=== PATIENT | female | born 1970 | race Caucasian/White ===

== ENCOUNTER 2019-07-07 12:55 | Emergency (ER) | payer SELFPAY ==
[2019-07-07 13:05] VITALS: BP 113/65; PULSE 89; TEMP 36.6; O2SAT 97
--- NOTE | 2019-07-07 13:15 | DI.RAD_ITS ---
EXAM: XR FOOT RT COMPLETE CLINICAL HISTORY: pain, injury dorsal foot pain. TECHNIQUE: 2D digital imaging was performed. COMPARISON: No exams were available for comparison FINDINGS: BONES: No acute fracture is present. No bony destructive lesion is seen. JOINTS: No dislocation present. SOFT TISSUE: Normal. IMPRESSION: Unremarkable radiographs of the right foot. DATA REPOSITORY: RADIATION DOSE DELIVERED:
[2019-07-07 14:27] VITALS: BP 122/75; PULSE 78; RESP 18; TEMP 37; O2SAT 98
--- NOTE | 2019-07-09 16:54 | ED.GENADUL_ITS ---
Discharge Plan Disposition Patient Disposition: HOME Condition: Stable Discharge Details Chief Complaint: Orthopedic Clinical Impression: Contusion of foot Primary Care Provider: Long Youssef ED Provider: Maria Del Carmen Jensen Home Meds and New Rx's Prescriptions: No Action acetaminophen [Tylenol] 325 MG tablet 325 mg PO PRN RF: 0 diphenhydramine HCl [Benadryl Allergy] 25 MG tablet 25 mg PO PRN PRNRF: 0 Discharge Instructions Instructions: Foot Contusion (ED) Additional Instructions: Rest. Activities as tolerated. Elevate injury to prevent swelling. Ice to the area of discomfort for 15 min. 3-5 times daily. Motrin every 8 hours with food or Tylenol every 6 hours for soreness if needed over the counter for comfort. Followup with orthopedic doctor as discussed if not improving in one week. Return for any worsening or concerns sooner if needed. Stand Alone Forms: Work Release Referrals: Talha Garcia MD [ [facility] STAFF PHYSICIAN] - Discharge Data Discharge Date/Time-TO BE ENTERED AT DEPARTURE: 07/07/19 16:02 Medical Decision Making Is a pleasant 49-year-old patient presenting to the emergency room after a rack of bread fell onto her right foot 2 days ago at work. Patient reports she is concerned due to persistence of pain and limping gait. Patient also concerned that she may require work note. Patient is complaining of focal dorsal foot pain. Denies any other injuries or trauma resulting from the injury which occurred at work. Patient concerned with the possibility of fracture as she does have persistent pain with ambulation and limping gait. Patient reports mild tingling noted in the foot after being struck however on exam has only dorsal foot pain with palpation and no sign of neurologic emergency. Pulses are intact. Sensation is intact throughout the foot. X-rays ordered. X-rays obtained which are unremarkable for identifiable fracture at this time. Patient offered postoperative shoe which she consents to. Rice encouraged. Rest encouraged, work note provided for few days of rest. Patient reports her understanding and agrees with plan of care. Orthopedic evaluation encouraged if not improving as expected. The patient was stable and requested discharge. Prior to discharge, my usual and customary return precautions were reviewed with the patient - this included follow-up instructions and reasons to return to the Emergency Department if conditions worsens, does not improve as expected, or other new concerns arise. HPI General Date/Time Provider Initiated Documentation: 07/07/19 13:09 . HPI Narrative: Is a very pleasant 49-year-old patient who works at [employer] who reports that a bread rack fell landing on her right foot. Patient reports injury occurred 3 days ago and patient reports persistent pain when ambulating. Patient reports mild swelling present which has since improved. Patient denies associated numbness, tingling or weakness. No open wounds. Patient reports dorsal foot as site of pain and denies any other associated injury. Patient denies any pain proximal to the foot. No other concerns or complaints at this time. Related Data Home Medications Medication Instructions Recorded Confirmed acetaminophen [Tylenol] 325 mg PO PRN NS 08/27/12 07/07/19 diphenhydramine HCl [Benadryl 25 mg PO PRN PRN 08/31/12 07/07/19 Allergy] Allergies Allergy/AdvReac Type Severity Reaction Status Date / Time Penicillins Allergy Intermediate facial Unverified 07/07/19 13:07 swelling tramadol Allergy Intermediate Unverified 07/07/19 13:07 ibuprofen Allergy Mild Unverified 07/07/19 13:07 codeine AdvReac Mild Skin Rash Unverified 07/07/19 13:07 ketorolac tromethamine AdvReac Mild Skin Rash Unverified 07/07/19 13:07 [From Toradol] meperidine AdvReac Mild skin crawls Unverified 07/07/19 13:07 General Stated Complaint: Orthopedic RALPH: 4 Review of Systems All systems reviewed & are unremarkable except as noted in HPI and below Constitutional Constitutional: Denies weakness ENT Ears, Nose, Mouth, and Throat: Denies neck pain Musculoskeletal Musculoskeletal: Reports abnormal gait (Limping), Denies back pain, Denies deformity, Denies joint swelling, Denies limited range of motion, Denies neck pain, Denies numbness and Reports tingling Integumentary/Breasts Skin/Breast: Denies wounds Neurologic Neurologic: Reports abnormal gait (Limping), Denies focal weakness, Denies numbness, Reports tingling, Denies paresthesias and Denies weakness [facility] Surgical History (Updated 02/17/18 @ 14:34 by [employer] [place]) Colonoscopy - [place] 10/03/13[place] [facility] [place]oph[place], Left Repair, ACL (~1990) Tonsillectomy (~1999) Vaginal hysterectomy removed right ovary Social History Smoking/Tobacco Use Status: Current every day Tobacco Type: cigarettes Alcohol Intake: former Drug use: Never Substance use type: does not use Do you feel safe at home: Yes Do you feel safe in your relationship?: Yes Exam Narrative Exam Narrative: CONST: Healthy appearing patient, in no acute distress. Well hydrated. Alert and oriented. MUSCULOSKELETAL: Limping gait. FROM of all extremities. Right leg: Straight leg raise intact, no knee pain with palpation. No toro pain with palpation. No ankle pain with palpation. Achilles tendon intact and nontender. No medial or lateral malleolus tenderness. Patient does have dorsal foot pain with palpation focally over the proximal forefoot. No calcaneal tenderness. No obvious open wounds. No significant swelling. Pulses intact. Tenderness with palpation through the diffuse dorsal foot. Mild tenderness to the digits. No obvious deformities. Dorsiflexion, plantar flexion intact. Sensation intact distally. SKIN: Normal. Dry. No rashes. NEURO: Alert and awake. Speech clear. PSYCH: Normal affect. Cooperative. Course Vital Signs Vital signs: Vital Signs Temperature 36.6 C 07/07/19 13:05 Pulse 89 07/07/19 13:05 Blood Pressure 113/65 07/07/19 13:05 Pulse Oximetry 97 07/07/19 13:05 Temperature 37.0 C 07/07/19 14:27 Temperature Source Skin 07/07/19 14:27 Pulse 78 07/07/19 14:27 Pulse Rhythm Regular 07/07/19 14:27 Pulse Strength Normal 07/07/19 14:27 Respiratory Rate 18 07/07/19 14:27 Respiratory Effort 07/07/19 14:27 Respiratory Depth Normal 07/07/19 14:27 Respiratory Pattern Normal 07/07/19 14:27 Blood Pressure 122/75 07/07/19 14:27 Blood Pressure Mean 90 07/07/19 14:27 Blood Pressure Position Sitting 07/07/19 14:27 Pulse Oximetry 98 07/07/19 14:27 Oxygen Delivery Method Room Air 07/07/19 14:27 Oxygen Flow Rate 0 07/07/19 14:27 Pain Level 6 07/07/19 13:05
== END 2019-07-07 16:02 | disposition home or self-care (01) ==
PROVIDERS: Emergency Provider Physician Assistant; PCP Family Medicine
DX: S97.81XA Crushing injury of right foot, initial encounter (principal); S90.31XA Contusion of right foot, initial encounter; W20.8XXA Other cause of strike by thrown, projected or falling object, initial encounter; Y99.0 Civilian activity done for income or pay
CPT/HCPCS: 99283; 73630

== ENCOUNTER 2020-02-04 12:17 | Emergency (ER) | payer SELFPAY ==
[2020-02-04 12:25] VITALS: BP 107/69; PULSE 80; RESP 16; TEMP 36.6; O2SAT 100
--- NOTE | 2020-02-04 12:30 | DI.CT_ITS ---
EXAM: CT ABDOMEN PELVIS W INDICATION: Left flank/left lower quadrant pain. COMPARISON: CT ABD PELVIS WITH CONTRAST from 07/18/2013 TECHNIQUE: FINDINGS: CT examination of the abdomen and pelvis was performed with a bolus infusion of 100 cc of Omnipaque 3 50. Images obtained through the lung bases are unremarkable. Liver, spleen and pancreas appear normal . Gallbladder and bile ducts are CT normal. Adrenals and kidneys are unremarkable with an incidental small left renal cyst.. Urinary bladder unr emarkable. Abdominal aorta is of normal diameter and no major vascular abnormality is seen. No abdominal wall hernia. No abdominal or pelvic adenopathy. Uterus and ovaries nonvisualized. Appendix is normal. No evidence of diverticulitis or bowel obstruc tion. IMPRESSION: Negative examination of the abdomen and pelvis. RADIATION DOSE DELIVERED: 488.03mGy.cm Total DLP 488.03mGy.cm Total DLP
--- NOTE | 2020-02-04 12:37 | W.ED.GENAD ---
Discharge Plan Disposition Patient Disposition: HOME Condition: Stable Discharge Details Clinical Impression: Edema of small intestine Primary Care Provider: Long Youssef ED Provider: Ja Jauregui Home Meds and New Rx's Prescriptions: New dicyclomine 10 mg capsule 10 mg PO TID PRN (Reason: bowel cramps) Qty: 10 RF: 0 hydrocodone-acetaminophen 5-325 mg tablet 1 tab PO TID PRN (Reason: pain) Qty: 7 RF: 0 Continued acetaminophen [Tylenol] 325 MG tablet 325 mg PO PRN RF: 0 diphenhydramine HCl [Benadryl Allergy] 25 MG tablet 25 mg PO PRN PRNRF: 0 Discharge Instructions Instructions: Sacroiliitis (ED) Additional Instructions: Please observe a bland diet today. Small, frequent sips of fluids to maintain hydration. Please follow-up with physical therapy to evaluate SI joint strain/sacroiliitis. May use the prescribed Vicodin as needed for severe or break her pain. May also continue your regular medications but do not use additional Tylenol while taking the hydrocodone. Return if you develop increasing pain, numbness or weakness of the leg, a fever, bloody stools, or any other concerns. Stand Alone Forms: Physical Therapy Referral Medical Decision Making 49-year-old female presents from home with 3+ weeks of left flank/left SI/left lower quadrant pain. 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 She denies fall or injury. No fever, no change to bowel or bladder habits, no rash. On exam she is afebrile and well-appearing. She is tender overlying the left SI joint, left flank, the left lower quadrant. Differential diagnosis includes SI joint strain, muscular spasm, pyelonephritis or renal colic, diverticulitis or other left lower quadrant pathology. Lidoderm patch placed. Patient referred for laboratory testing and CT images. Patient's urinalysis is equivocal and likely be mildly contaminated. White blood cell count 8, hematocrit 35, platelets 242. Sodium 137, test 3.6, BUN 20, creatinine 0.9 AST 20, ALT 13. CT reveals nondilated fluid-filled small bowel and mild diffuse pericolonic fat stranding, which may present mild enterocolitis. No bowel obstruction. My clinical impression is primarily of left SI joint strain. She certainly does have the above-mentioned small bowel nonspecific findings. Will treat with a bland diet, Bentyl as needed. I will also prescribe her oral analgesia and refer to physical therapy for probable sacroiliitis. She understands treatment plan and is stable for discharge home. She was consented for the use of a small amount of narcotics prior to discharge. Lab Data Lab results reviewed: Yes I reviewed the patient's lab results. Labs: Laboratory Results - last 24 hr 02/04/20 02/04/20 02/04/20 12:40 12:40 12:40 WBC 8.88 RBC 3.77 L Hgb 11.5 Hct 35.2 L MCV 93.4 MCH 30.5 MCHC 32.7 RDW 13.0 Plt Count 242 MPV 10.8 Immature Gran % 0.2 Neutrophils % 64.1 Lymphocytes % 27.6 Monocytes % 5.4 Eosinophils % 2.0 Basophils % 0.7 Nucleated RBC % 0 Absolute Neutrophils 5.69 Absolute Lymphocytes 2.45 Absolute Monocytes 0.48 Absolute Eosinophils 0.18 Absolute Basophils 0.06 Sodium 137 Potassium 3.6 Chloride 102 Carbon Dioxide 28.0 Anion Gap 7.0 BUN 20 H Creatinine 0.96 Estimated GFR/1.73 m2 >= 60.00 Glucose 126 H Calcium 8.9 Total Bilirubin 0.3 AST 20 ALT 13 L Alkaline Phosphatase 73 Total Protein 7.2 Albumin 4.0 Urine Color Yellow Urine Clarity Clear Urine pH 7.0 Ur Specific [place] 1.025 Urine Protein Negative Urine Ketones Negative Urine Blood Small H Urine Nitrite Negative Urine Bilirubin Negative Urine Urobilinogen 0.2 Ur Leukocyte Esterase Negative Urine RBC 3-5 H Urine WBC 0-2 Ur Epithelial Cells Few Urine Crystals Negative Urine Bacteria Rare Urine Casts Negative Urine Mucus Trace Urine Other Few yeast Ur Culture Indicated? No Urine Glucose Negative HPI General Mode of arrival: ambulatory. Date/Time Provider Initiated Documentation: 02/04/20 12:18. Limitations to Documentation: no limitations. Information obtained by: patient. History of Present Illness 49 year old F presents to the emergency department with the chief complaint of 3 to 4 weeks left lower quadrant/left back pain, described as moderate, Quality is described as dull and constant, and is localized to the back, abdomen and left. Patient abdomen. Patient started experiencing this week(s) and it has been intermittent. No relieving factors improve symptom(s), No exacerbating factors reported . Patient notes denies fever/chills and nausea/vomiting. Patient did receive the following treatments prior to arrival, other (Tylenol) Related Data Home Medications Medication Instructions Recorded Confirmed acetaminophen [Tylenol] 325 mg PO PRN NS 08/27/12 07/07/19 diphenhydramine HCl [Benadryl 25 mg PO PRN PRN 08/31/12 07/07/19 Allergy] dicyclomine 10 mg PO TID PRN #10 cap 02/04/20 hydrocodone-acetaminophen 1 tab PO TID PRN #7 tab 02/04/20 Previous Rx's Medication Instructions Recorded dicyclomine 10 mg PO TID PRN #10 cap 02/04/20 hydrocodone-acetaminophen 1 tab PO TID PRN #7 tab 02/04/20 Allergies Allergy/AdvReac Type Severity Reaction Status Date / Time Penicillins Allergy Intermediate facial Unverified 02/04/20 12:29 swelling tramadol Allergy Intermediate Unverified 02/04/20 12:29 ibuprofen Allergy Mild Unverified 02/04/20 12:29 codeine AdvReac Mild Skin Rash Unverified 02/04/20 12:29 ketorolac tromethamine AdvReac Mild Skin Rash Unverified 02/04/20 12:29 [From Toradol] meperidine AdvReac Mild skin crawls Unverified 02/04/20 12:29 General Stated Complaint: FlankPain RALPH: 3 Review of Systems Narrative: Denies fall or injury. No rash. No numbness, tingling, or weakness of the lower extremity. Describes normal urination and defecation. 6 systems reviewed and otherwise negative [facility] Surgical History (Updated 02/17/18 @ 14:34 by [email or web address] [place]) Colonoscopy - MAC 10/03/13; [facility] [place] Oophrectomy, Left Repair, ACL (~1990) Tonsillectomy (~1999) Vaginal hysterectomy removed right ovary Social History Smoking/Tobacco Use Status: Current every day Tobacco Type: cigarettes Alcohol Intake: former Drug use: Daily Substance use type: marijuana Do you feel safe at home: Yes Do you feel safe in your relationship?: Yes Exam Narrative Exam Narrative: GEN: awake, alert, oriented 3. Pleasant, well groomed, interactive. HEAD: Normocephalic, atraumatic ENT: Mucous membranes moist, External ear exam unremarkable EYES: PERRL, EOMI NECK: Full ROM, no JORGE A, no menigismus CHEST/RESP: Nontender, clear to auscultation bilateral, no wheeze/rhonchi/rales CARDIOVASCULAR: RRR, no murmur, rub kailey. 2+ Rad pulse bilateral ABDOMEN: Soft, tender left lower quadrant without rebound or guarding, no mass. +Bowel sounds. Left SI joint and left flank mildly tender. EXT: Full ROM, no edema, no rash Neuro: Grossly normal neurologic exam, conversant, interactive. Psych: Speech fluent, thoughts congruent, affect normal Course Vital Signs Vital signs: Vital Signs Temperature 36.6 C 02/04/20 12:25 Pulse 80 02/04/20 12:25 Respiratory Rate 16 02/04/20 12:25 Blood Pressure 107/69 02/04/20 12:25 Pulse Oximetry 100 02/04/20 12:25 Temperature 36.6 C 02/04/20 12:25 Temperature Source Temporal Artery Scan 02/04/20 12:25 Pulse 80 02/04/20 12:25 Respiratory Rate 16 02/04/20 12:25 Respiratory Effort 02/04/20 12:29 Blood Pressure 107/69 02/04/20 12:25 Pulse Oximetry 100 02/04/20 12:25 Oxygen Delivery Method Room Air 02/04/20 12:25 Oxygen Flow Rate 0 02/04/20 12:25 Pain Level 8 02/04/20 12:25
[2020-02-04] MEDS: Lidocaine 5% Patch 1 PATCH TP (12:42)
[2020-02-04] MEDS: Normal Saline 1,000 ML 1000 ML IV (12:42)
[2020-02-04 12:49] LABS: Abs Immature Grans 0.02 10^3/uL (0.0-0.06); Absolute Basophil Count 0.06 10^3/uL (0.0-0.2); Absolute Eosinophil Count 0.18 10^3/uL (0.0-0.7); Absolute Lymphocyte Count 2.45 10^3/uL (1.2-3.4); Absolute Monocyte Count 0.48 10^3/uL (0.1-0.8); Absolute Neutrophil Count 5.69 10^3/uL (1.2-6.7); Basophils % 0.7; HCT 35.2 % (36.0-46.0); HGB 11.5 g/dL (11.2-15.7); Immature Grans % 0.2; Lymphocytes % 27.6; MCH 30.5 pg (27.0-33.0); MCHC 32.7 % (32.0-36.0); MCV 93.4 fL (80-95); MPV 10.8 fL (8.0-11.0); Monocytes % 5.4; Neutrophils % 64.1; Nucleated RBC 0 %; Platelet Count 242 10^3/uL (130-400); RBC 3.77 10^6/uL (3.93-5.22); RDW-SD 44.7 fL; WBC 8.88 10^3/uL (4.4-10.8)
[2020-02-04 12:50] LABS: Bilirubin Negative (Negative); Blood Small (Negative); Clarity Clear (Clear); Glucose Negative (Negative); Ketones Negative (Negative); Leukocyte Esterase Negative (Negative); Nitrite Negative (Negative); Specific Gravity 1.025 (1.005-1.025); Urobilinogen 0.2 EU/dL (Up TO 0.2)
[2020-02-04 13:06] LABS: Bacteria Rare HPF (Negative); Crystals Negative HPF (Negative); Epithelial Cells Few HPF (Negative); Other Cells Few Yeast (Negative); WBC 0-2 HPF (0-5)
[2020-02-04 13:07] LABS: C & S Indicated? No; Casts Negative LPF (Negative); Mucus Trace (Negative)
[2020-02-04 13:09] LABS: ALT 13 U/L (14-59); AST 20 U/L (15-37); Alkaline Phosphatase 73 U/L (46-116); BUN 20 mg/dL (7-18); Bilirubin, Total 0.3 mg/dL (0.2-1.0); CREATININE 0.96 mg/dL (0.55-1.02); Calcium 8.9 mg/dL (8.5-10.1); Chloride 102 mmol/L (98-107); Glucose 126 mg/dL (74-106); Potassium 3.6 mmol/L (3.5-5.1); Sodium 137 mmol/L (136-145); Total Protein 7.2 g/dL (6.4-8.2)
[2020-02-04] MEDS: Normal Saline - Diluent 50 ML VIAL IV (13:23)
[2020-02-04] MEDS: Omnipaque 350 MG/ML 100 ML BTL IJ (13:24)
--- NOTE | 2020-02-04 13:41 | NUR.NOTE ---
Nursing Note: offered pain medication to pt- she states she cannot find a ride home, and therefore cannot have controlled substance. Pt states I'd rather wait until I get home.
--- NOTE | 2020-02-04 13:58 | DI.VRAD_ITS ---
PROCEDURE INFORMATION: Exam: CT Abdomen And Pelvis With Contrast Exam date and time: 02/04/2020 12:38 PM Clinical indication: Abdominal pain; Localized; Left lower quadrant (llq) TECHNIQUE: Imaging protocol: Computed tomography of the abdomen and pelvis with intravenous contrast. COMPARISON: CT abdomen and pelvis dated 07/18/2013 FINDINGS: Mediastinal space: There is small hiatal hernia. Liver: Left lobe of liver is elongated with a part wraps around spleen and could be a normal variation. Gallbladder and bile ducts: Normal. No calcified stones. No ductal dilation. Pancreas: Normal. No ductal dilation. Spleen: Normal. No splenomegaly. Adrenals: Normal. No mass. Kidneys and ureters: There is a small nonenhancing cyst in left renal upper pole. No hydronephrosis or nephrolithiasis. Stomach and bowel: There is fluid within small bowel. Distal large bowel is nondistended. There is mild diffuse pericolonic fat stranding. Appendix: Appendix is not identified, however no secondary signs of acute inflammation is noted. There is no pericecal fat stranding or abnormal fluid collection. Intraperitoneal space: Unremarkable. No free air. No significant fluid collection. Vasculature: Unremarkable. No abdominal aortic aneurysm. Lymph nodes: Unremarkable. No enlarged lymph nodes. Urinary bladder: Unremarkable as visualized. Reproductive: Unremarkable as visualized. Bones/joints: Unremarkable. No acute fracture. Soft tissues: Unremarkable. IMPRESSION: Non dilated fluid-filled small bowel and mild diffuse pericolonic fat stranding could reflect mild enterocolitis or sequela of diarrhea illness. No bowel obstruction. Dictated and Authenticated by: Samy Fernando MD. Ordering:MILAGROS Peres MD
[2020-02-04 14:23] VITALS: BP 110/72; PULSE 82; RESP 16; TEMP 36.6; O2SAT 100
== END 2020-02-04 14:34 | disposition home or self-care (01) ==
PROVIDERS: Emergency Provider Emergency Medicine; PCP Family Medicine
DX: M46.1 Sacroiliitis, not elsewhere classified (principal); K52.9 Noninfective gastroenteritis and colitis, unspecified
CPT/HCPCS: 36415; 80053; 96360; 99285; 74177; 81003; 81015; 85025; 99284; J3490

== ENCOUNTER 2020-03-18 11:56 | Emergency (ER) | payer SELFPAY ==
[2020-03-18 12:00] VITALS: BP 124/88; PULSE 103; RESP 17; TEMP 36.5; O2SAT 100
--- NOTE | 2020-03-18 12:00 | DI.CT_ITS ---
EXAM: CT ABDOMEN PELVIS W INDICATION: left lower abdominal pain, and SI joint pain. COMPARISON: CT CT ABDOMEN PELVIS W from 02/04/[address] LUMBAR SPINE W from 03/18/[address] LUMBAR SPINE W from 03/18/2020 TECHNIQUE: FINDINGS: CT examination of the abdomen and pelvis was performed with a bolus infusion of 80 cc of Omnipaque 35 0. Images obtained through the lung bases are unremarkable. The liver is unremarkable in appearance. Gallbladder and bile ducts are CT normal. Pancreas appears normal. Spleen is unremarkable in appearance. Adrenals appear normal. The kidneys are unremarkable with no evidence of hydronephrosis, nephrolithiasis, or renal mass.. Ur inary bladder unremarkable. Abdominal aorta is of normal diameter and no major vascular abnormality is seen. No abdominal wall hernia. No abdominal or pelvic adenopathy. Uterus and ovaries not clearly visualized. Appendix is normal. No evidence of diverticulitis or bowel obstruction. There is a question of duodenal wall thickening, there is moderate distention of the descending and t ransverse duodenum, possibility of duodenitis is raised. Also there is a question of mild thickening of the gastric wall, gastritis not excluded. Please correlate clinically. The requisition states that there is a history of SI joint pain. The SI joints appear intact, no foc al bony abnormality seen. IMPRESSION: Questionable findings raising the possibility of gastritis and/or duodenitis. Please correlate clini maria de jesus. Endoscopy may be considered if clinically appropriate. RADIATION DOSE DELIVERED: Total DLP Total DLP
--- NOTE | 2020-03-18 12:13 | ED.GENADUL_ITS ---
Discharge Plan Disposition Patient Disposition: HOME Condition: Good Discharge Details Clinical Impression: Left flank pain, Muscle spasm, Enteritis Primary Care Provider: Long Youssef ED Provider: Abdirashid Olmedo Home Meds and New Rx's Prescriptions: New dicyclomine 10 mg capsule 10 mg PO BID Qty: 20 RF: 0 cyclobenzaprine 10 mg tablet 10 mg PO TID Qty: 14 RF: 0 Discharge Instructions Instructions: Muscle Spasm (ED), Enteritis (ED) Additional Instructions: At this time your CT scan shows evidence of mild irritation of your intestines. This may be from a mild virus. Please take the Bentyl as needed to help with the pain. There is evidence of some mild blood in your urine, this may have been from a recently passed kidney stone which would correlate well with your symptoms. Additionally I do feel that there is a component of muscle spasm which is also causing your pain. Please take the Flexeril as needed for this. Do not operate any heavy machinery, drive any cars or go swimming while taking this medication as it can make you feel somewhat sleepy. It is very important to follow-up closely with your primary care provider for reassessment. Additionally there is also concern that some of your symptoms may be from recurrent endometriosis. Close follow-up with your primary care provider in regards to this is critical. To help with the pain you can take 1000 mg of Tylenol every 6 hours. If you notice any worsening of your symptoms, or any new symptoms such as vomiting, diarrhea, fever, chills, shortness of breath, chest pain, numbness, weakness, or fainting , please return immediately to the emergency department for reevaluation. Please follow up with your primary care provider as soon as possible for reassessment and reevaluation. As always, it was a pleasure participating in your medical care today. Referrals: Long Youssef MD [Primary Care Provider] - Discharge Data Discharge Date/Time-TO BE ENTERED AT DEPARTURE: 03/18/20 15:22 Medical Decision Making 49-year-old female with a past medical history of kidney stones, hysterectomy, left oophorectomy, presents today for evaluation of left flank hip and groin pain. Patient states that for the last few months she has had this pain, it comes and goes, it is usually improved with stretching, and heat. She was seen and evaluated 1 month ago, at that time she had colonic edema, clinical sacroiliitis and was discharged with recommendations for PT OT follow-up. Patient states her symptoms improved, but over the last few days have gotten notably worse. While they are improved with stretching, she also has new pain in her abdomen which is slightly atypical. She denies any urinary complaints. She denies any current melanotic or bright red blood stools. She denies any vomiting or diarrhea or vaginal discharge. She denies any urinary complaints. She does take her normal medical marijuana and states that this notably helps her pain. Tylenol only slightly improved with pain. She denies any recent falls or injuries. She does admit to a mild tingling sensation over the anterior aspect of her thigh. Patient denies any saddle anesthesia, numbness or tingling in the groin, change in sensation when wiping. Patient denies any c hange in sensation during sexual intercourse, bowel or bladder incontinence, leakage, or retention. Patient denies any weakness in the lower extremities, atypical falls or imbalance. No other complaints at this time. Exam demonstrates no midline spinal tenderness, no signs or symptoms concerning for cauda equina syndrome. Mild left lower quadrant abdominal tenderness. Differential is broad but still does include sacroiliitis but also potential diverticulitis. Urinary component is certainly on the differential. We will treat the patient's pain, get a repeat CT imaging as she states the pain is notably worse than before, monitor closely rehydrate give muscle relaxant and reassess. 5 PM Patient is feeling much better after muscle relaxant. Vital signs notably stable. Laboratory work-up is returned, no significant white count, no bandemia. Electrolytes normal, renal function excellent, urinalysis shows moderate blood, however her hemoglobin is stable. This may represent a recently passed kidney stone. No evidence of urine infection otherwise. CT scan is relatively unremarkable, there is some fluid-filled nondilated loops of small bowel in the pelvis with mild stranding which could be due to mild enteritis, there is questionable mild varicosities in the abdomen, normal appendix, and CT of the spine shows no evidence of significant cord compression or osseous abnormality in the lumbar spine. Patient feeling much better, and no evidence of acute life- threatening etiology I do feel she can be discharged. She certainly may have passed a kidney stone which may be a component of her pain, I do feel that there is likely component of muscle strain as her symptoms notably improved with the muscle relaxants. There is also potential for return of her previous endometriosis. At this time I feel she can be discharged I have recommended close follow-up with her PCP for further assessment management. We discussed red flags which return. We will give some Flexeril for home use. I have extensively reviewed the treatment plan and discharge instructions with the patient. I have addressed all patient concerns at this time. The patient was made aware of what symptoms to monitor for that would warrant a return to the emergency department. Discussed the plan with the patient, they demonstrate verbal understanding and agreement with our assessment and plan at this time. IMPRESSION: 1. Fluid-filled nondilated loops of small bowel in the pelvis with subjacent mild stranding could be due to mild enteritis. 2. Mildly dilated veins in the left side of the abdomen in the superior and inferior mesenteric veins are nonspecific but could be due to mildly varicose veins. 3. Normal appendix. Thank you for allowing us to participate in the care of your patient. Dictated and Authenticated by: Samy Fernando DO 03/18/2020 2:06 PM Eastern Time ([place] & [place]) FINDINGS: Vertebrae: There is no acute fracture or subluxation. There is normal alignment. Vertebral body heights are maintained. Facets are normally located. Intervertebral disc spaces are normal. L1-L2: No significant disc protrusion. No severe spinal canal stenosis. No significant neural foraminal narrowing. L2-L3: No significant disc protrusion. No spinal canal stenosis. No neural foraminal narrowing. L3-L4: No significant disc protrusion. No severe spinal canal stenosis. No significant neural foraminal narrowing. L4-L5: There is mild posterior disc bulge. No significant disc protrusion. No severe spinal canal stenosis. No significant neural foraminal narrowing. L5-S1: There is mild posterior disc bulge without central canal or neural foraminal stenosis. There is mild disc bulge without central canal or neural foraminal stenosis. Sacrum/coccyx: There is a spina bifid occulta of the S1. Other bones/joints: Posterior elements are intact. Vasculature: There is prominence of veins in the left side of lower abdomen and pelvis. Soft tissues: Prevertebral and posterior paraspinal soft tissues unremarkable. IMPRESSION: 1. No acute fracture or subluxation. 2. No s measurable central canal or neural foraminal stenosis. 3. Spina bifida occulta of S1. 4. Prominence of veins in the left side of the lower abdominal and pelvis, although nonspecific could reflect varicose veins or pelvic congestion syndrome. Thank you for allowing us to participate in the care of your patient. Dictated and Authenticated by: Samy Fernando DO 03/18/2020 1:54 PM Eastern Time ([place] & [place]) HPI General Date/Time Provider Initiated Documentation: 03/18/20 11:57 . HPI Narrative: 49-year-old female with a past medical history of kidney stones, hysterectomy, left oophorectomy, presents today for evaluation of left flank hip and groin pain. Patient states that for the last few months she has had this pain, it comes and goes, it is usually improved with stretching, and heat. She was seen and evaluated 1 month ago, at that time she had colonic edema, clinical sacroiliitis and was discharged with recommendations for PT OT follow-up. Patient states her symptoms improved, but over the last few days have gotten notably worse. While they are improved with stretching, she also has new pain in her abdomen which is slightly atypical. She denies any urinary complaints. She denies any current melanotic or bright red blood stools. She denies any vomiting or diarrhea or vaginal discharge. She denies any urinary complaints. She does take her normal medical marijuana and states that this notably helps her pain. Tylenol only slightly improved with pain. She denies any recent falls or injuries. She does admit to a mild tingling sensation over the anterior aspect of her thigh. Patient denies any saddle anesthesia, numbness or tingling in the groin, change in sensation when wiping. Patient denies any change in sensation during sexual intercourse, bowel or bladder incontinence, leakage, or retention. Patient denies any weakness in the lower extremities, atypical falls or imbalance. No other complaints at this time. Related Data Home Medications Medication Instructions Recorded Confirmed cyclobenzaprine 10 mg PO TID #14 tab 03/18/20 dicyclomine 10 mg PO BID #20 cap 03/18/20 Previous Rx's Medication Instructions Recorded cyclobenzaprine 10 mg PO TID #14 tab 03/18/20 dicyclomine 10 mg PO BID #20 cap 03/18/20 Allergies Allergy/AdvReac Type Severity Reaction Status Date / Time Penicillins Allergy Intermediate facial Unverified 03/18/20 12:07 swelling tramadol Allergy Intermediate Unverified 03/18/20 12:07 ibuprofen Allergy Mild Unverified 03/18/20 12:07 codeine AdvReac Mild Skin Rash Unverified 03/18/20 12:07 ketorolac tromethamine AdvReac Mild Skin Rash Unverified 03/18/20 12:07 [From Toradol] meperidine AdvReac Mild skin crawls Unverified 03/18/20 12:07 General Stated Complaint: FlankPain RALPH: 3 Review of Systems All systems reviewed & are unremarkable except as noted in HPI and below REPLACED BY [facility] Surgical History Colonoscopy - MAC 10/03/13; [facility] [place] Oophrectomy, Left Repair, ACL (~1990) Tonsillectomy (~1999) Vaginal hysterectomy removed right ovary Social History Smoking/Tobacco Use Status: Current every day Tobacco Type: cigarettes Smoking risk assessment performed?: Yes Alcohol Intake: former Drug use: Daily Substance use type: marijuana Do you feel safe at home: Yes Do you feel safe in your relationship?: Yes Exam Narrative Exam Narrative: 1.Const: Well-nourished, Well-developed, appearing stated age 2.Eyes: PERRL, no conjunctival injection, and symmetrical lids. 3.ENT: Atraumatic external nose and ears. Moist MM. Neck: Symmetric, trachea midline, No thyromegaly. 4.CVS: +S1/S2, No murmurs or gallops. Peripheral pulses 2+ and equal in all extremities. Brisk capillary refill in all extremities. 5.RESP: Unlabored respiratory effort. Clear to auscultation bilaterally. No wheezes rales or rhonchi 6.GI: Mild left lower quadrant tenderness. Abdomen soft. Mild left CVA tenderness. Negative obturator and psoas sign. Negative Rovsing sign. No pelvic tenderness. 7.MSK: Normocephalic/Atraumatic, Extremities w/o deformity or ttp No cyanosis or clubbing, Normal movement of all extremities. No midline tenderness to palpation over the CTLS spine. Normal ROM in flexion, extension, side bend, and rotation. Patient has +5 out of 5 strength in the lower extremities in dorsiflexion and plantarflexion, knee flexion and extension, hip flexion and extension. Normal strength for dorsiflexion and plantar flexion of the great toe bilaterally. There is +2 over 2 dorsalis pedis pulses bilaterally. There is normal sensation to the skin with light touch at the foot, knee, and hip. Normal saddle sensation. Good sensation over the deep sural nerve area bilaterally. Rectal exam deferred. Reflexes are +2 over 4 in the patellar reflex bilaterally. +5 out of 5 strength in the medial, ulnar, radial nerve distribution bilaterally in the hands as well as intact light touch sensation to these dermatomes on the hands 8.Skin: Warm, Dry. No rashes or lesions. 9.Neuro: operating room surgical technologist II-XII grossly intact. Sensation grossly intact, no focal neurologic deficits. Sensation over both lower extremities is intact bilaterally, 2 light touch, pinch with no evidence of deficit. 10.Psych: (AAO) x3. Appropriate mood and affect Course Vital Signs Vital signs: Vital Signs Temperature 36.5 C 03/18/20 12:00 Pulse 103 H 03/18/20 12:00 Respiratory Rate 17 03/18/20 12:00 Blood Pressure 124/88 03/18/20 12:00 Pulse Oximetry 100 03/18/20 12:00 Temperature 36.5 C 03/18/20 12:00 Temperature Source Temporal Artery Scan 03/18/20 12:00 Pulse 103 H 03/18/20 12:00 Respiratory Rate 17 03/18/20 12:00 Respiratory Effort Non-Labored 03/18/20 12:05 Blood Pressure 124/88 03/18/20 12:00 Pulse Oximetry 100 03/18/20 12:00 Oxygen Delivery Method Room Air 03/18/20 12:00 Oxygen Flow Rate 0 03/18/20 12:00
--- NOTE | 2020-03-18 12:15 | DI.CT_ITS ---
EXAM: CT LUMBAR SPINE W CLINICAL HISTORY: leflt flank pain with anterior thigh tingling TECHNIQUE: COMPARISON: CT CT ABDOMEN PELVIS W from 02/04/[address] ABDOMEN PELVIS W from 03/18/2020 FINDINGS: Reconstructions of the lumbosacral spine were obtained from raw data of abdominal and pelvic CT. The intervertebral disc spaces are well maintained. No fracture or dislocation. Intact SI joints. No spondylolysis or spondylolisthesis. IMPRESSION: Negative CT examination of the lumbosacral spine. RADIATION DOSE DELIVERED: Total DLP
[2020-03-18 12:25] LABS: Lactate 0.8 mmol/L (0.6-1.4)
[2020-03-18] MEDS: Lidocaine 5% Patch 1 PATCH TP (12:25)
[2020-03-18 12:26] LABS: Abs Immature Grans 0.03 10^3/uL (0.0-0.06); Absolute Basophil Count 0.06 10^3/uL (0.0-0.2); Absolute Eosinophil Count 0.21 10^3/uL (0.0-0.7); Absolute Lymphocyte Count 3.22 10^3/uL (1.2-3.4); Absolute Monocyte Count 0.54 10^3/uL (0.1-0.8); Basophils % 0.6; Eosinophils % 1.9; HCT 38.4 % (36.0-46.0); HGB 12.8 g/dL (11.2-15.7); Immature Grans % 0.3; Lymphocytes % 29.8; MCH 30.8 pg (27.0-33.0); MCHC 33.3 % (32.0-36.0); MCV 92.5 fL (80-95); MPV 10.8 fL (8.0-11.0); Neutrophils % 62.4; Nucleated RBC 0 %; Platelet Count 224 10^3/uL (130-400); RBC 4.15 10^6/uL (3.93-5.22); RDW 13.1 % (11.7-14.6); RDW-SD 44.5 fL; WBC 10.82 10^3/uL (4.4-10.8)
[2020-03-18] MEDS: Cyclobenzaprine 10 MG TAB PO (12:26)
[2020-03-18] MEDS: Normal Saline 1,000 ML 1000 ML IV (12:26)
[2020-03-18 12:29] LABS: Bilirubin Negative (Negative); Blood Moderate (Negative); Clarity Clear (Clear); Glucose Negative (Negative); Ketones Negative (Negative); Leukocyte Esterase Negative (Negative); Nitrite Negative (Negative); Urobilinogen 0.2 EU/dL (Up TO 0.2)
[2020-03-18 12:31] LABS: Absolute Neutrophil Count 6.75 10^3/uL (1.2-6.7)
[2020-03-18 12:38] LABS: RBC 20-50 HPF (0-2); WBC 0-2 HPF (0-5)
[2020-03-18 12:39] LABS: Bacteria Rare HPF (Negative); C & S Indicated? No; Casts Negative LPF (Negative); Crystals Negative HPF (Negative); Epithelial Cells Few HPF (Negative); Mucus Negative (Negative)
[2020-03-18 12:42] LABS: ALT 14 U/L (14-59); AST 17 U/L (15-37); Albumin 4.8 g/dL (3.4-5.0); Alkaline Phosphatase 64 U/L (46-116); Anion Gap 9.6 mmol/L (3-11); BUN 10 mg/dL (7-18); Bilirubin, Total 0.5 mg/dL (0.2-1.0); CO2 28.4 mmol/L (21.0-32.0); CREATININE 0.87 mg/dL (0.55-1.02); Calcium 9.2 mg/dL (8.5-10.1); Chloride 101 mmol/L (98-107); Glucose 94 mg/dL (74-106); Potassium 4.4 mmol/L (3.5-5.1); Sodium 139 mmol/L (136-145); Total Protein 8.6 g/dL (6.4-8.2)
[2020-03-18] MEDS: Omnipaque 350 MG/ML 100 ML BTL IV (12:47)
[2020-03-18] MEDS: Normal Saline - Diluent 50 ML VIAL IV (12:52)
--- NOTE | 2020-03-18 13:54 | DI.VRAD_ITS ---
PROCEDURE INFORMATION: Exam: CT Lumbar Spine With Contrast Exam date and time: 03/18/2020 12:18 PM Age: 49 years old Clinical indication: Low back pain TECHNIQUE: Imaging protocol: Computed tomography images of the lumbar spine with intravenous contrast. COMPARISON: No relevant prior studies available. FINDINGS: Vertebrae: There is no acute fracture or subluxation. There is normal alignment. Vertebral body heights are maintained. Facets are normally located. Intervertebral disc spaces are normal. L1-L2: No significant disc protrusion. No severe spinal canal stenosis. No significant neural foraminal narrowing. L2-L3: No significant disc protrusion. No spinal canal stenosis. No neural foraminal narrowing. L3-L4: No significant disc protrusion. No severe spinal canal stenosis. No significant neural foraminal narrowing. L4-L5: There is mild posterior disc bulge. No significant disc protrusion. No severe spinal canal stenosis. No significant neural foraminal narrowing. L5-S1: There is mild posterior disc bulge without central canal or neural foraminal stenosis. There is mild disc bulge without central canal or neural foraminal stenosis. Sacrum/coccyx: There is a spina bifid occulta of the S1. Other bones/joints: Posterior elements are intact. Vasculature: There is prominence of veins in the left side of lower abdomen and pelvis. Soft tissues: Prevertebral and posterior paraspinal soft tissues unremarkable. IMPRESSION: 1. No acute fracture or subluxation. 2. No s measurable central canal or neural foraminal stenosis. 3. Spina bifida occulta of S1. 4. Prominence of veins in the left side of the lower abdominal and pelvis, although nonspecific could reflect varicose veins or pelvic congestion syndrome. Dictated and Authenticated by: Saym Fernando MD. Ordering:JAZMIN Mendenhall MD
[2020-03-18 13:58] VITALS: BP 95/62; PULSE 77; RESP 18; O2SAT 100
--- NOTE | 2020-03-18 14:07 | DI.VRAD_ITS ---
PROCEDURE INFORMATION: Exam: CT Abdomen And Pelvis With Contrast Exam date and time: 03/18/2020 12:13 PM Age: 49 years old Clinical indication: Abdominal pain TECHNIQUE: Imaging protocol: Computed tomography of the abdomen and pelvis with intravenous contrast. Contrast material: OMNIPAQUE 350; Contrast volume: 80 ml; Contrast route: INTRAVENOUS (IV); COMPARISON: CT ABDOMEN PELVIS W 02/04/2020 1:30 PM FINDINGS: Liver: Normal. No mass. Gallbladder and bile ducts: Normal. No calcified stones. No ductal dilation. Pancreas: Normal. No ductal dilation. Spleen: Normal. No splenomegaly. Adrenal glands: Normal. No mass. Kidneys and ureters: Normal. No hydronephrosis. Stomach and bowel: There is fluid in the nondistended distal small bowel in the pelvis. There is no significant mucosal thickening. Stomach is grossly unremarkable. Appendix: Appendix is normal (image 63 series 5). Intraperitoneal space: Unremarkable. No free air. No significant fluid collection. Vasculature: There is slight prominence of the superior and inferior mesenteric veins. Lymph nodes: Unremarkable. No enlarged lymph nodes. Urinary bladder: Unremarkable as visualized. Reproductive: No abnormality. Bones/joints: No acute abnormality in the osseous structures. Soft tissues: Unremarkable. IMPRESSION: 1. Fluid-filled nondilated loops of small bowel in the pelvis with subjacent mild stranding could be due to mild enteritis. 2. Mildly dilated veins in the left side of the abdomen in the superior and inferior mesenteric veins are nonspecific but could be due to mildly varicose veins. 3. Normal appendix. Dictated and Authenticated by: Samy Fernando MD. Ordering:JAZMIN Mendenhall MD
--- NOTE | 2020-03-18 14:43 | NUR.NOTE ---
pt resting quietly at this time. awaiting disposition. vs stable
[2020-03-18 15:02] VITALS: BP 105/75; PULSE 66; RESP 17; TEMP 36.5; O2SAT 100
--- NOTE | 2020-03-18 15:13 | NUR.NOTE ---
Nursing Note: Referral for follow up faxed to PCP. Kourtney Hodgson
== END 2020-03-18 15:22 | disposition home or self-care (01) ==
LOC: ER 13:15
PROVIDERS: Emergency Provider Student in an Organized Health Care Education/Training Program; PCP Family Medicine
DX: R10.32 Left lower quadrant pain (principal); M62.830 Muscle spasm of back; K52.9 Noninfective gastroenteritis and colitis, unspecified; R31.9 Hematuria, unspecified; R20.2 Paresthesia of skin; Z87.442 Personal history of urinary calculi
CPT/HCPCS: 36415; 80053; 96361; 96374; 96376; 99285; 72132; 74177; 81003; 81015; 83605; 85025; J3490

== ENCOUNTER 2020-04-02 16:00 | Outpatient (REF) | payer SELFPAY ==
[2020-04-02 16:13] LABS: Bilirubin Negative (Negative); Blood Small (Negative); Clarity Clear (Clear); Glucose Negative (Negative); Ketones Negative (Negative); Leukocyte Esterase Negative (Negative); Nitrite Negative (Negative); Urobilinogen 0.2 EU/dL (Up TO 0.2); pH 7.5 (5-8)
[2020-04-02 16:24] LABS: Bacteria Negative HPF (Negative); C & S Indicated? No; Crystals Negative HPF (Negative); Epithelial Cells Rare HPF (Negative); Mucus Negative (Negative); WBC Negative HPF (0-5)
== END 2020-04-02 16:20 ==
LOC: LBN 16:00
PROVIDERS: PCP Nurse Practitioner Family; Visit Provider Surgery
DX: R10.9 Unspecified abdominal pain (principal); Z87.442 Personal history of urinary calculi
CPT/HCPCS: 81003; 81015

== ENCOUNTER 2020-04-16 03:00 | Outpatient (CLI) | payer MEDICAID, SELFPAY ==
[2020-04-17 17:30] LABS: COVID-19 RT-PCR UVMMC Result Negative (Negative)
== END 2020-04-16 03:20 ==
PROVIDERS: Surgery; PCP Nurse Practitioner Family; Visit Provider Surgery
DX: Z11.59 Encounter for screening for other viral diseases (principal); Z01.818 Encounter for other preprocedural examination
CPT/HCPCS: U0003

== ENCOUNTER 2020-04-19 07:08 | Day surgery (SDC) | payer MEDICAID, SELFPAY ==
[2020-04-19 07:43] VITALS: BP 96/70; PULSE 73; RESP 16; TEMP 36.7; O2SAT 96
[2020-04-19] MEDS: Lactated Ringers 1,000 ML 80 ML IV (08:02)
--- NOTE | 2020-04-19 08:55 | STOM_PTH ---
PATIENT: Christiana Nagel LOC: [facility] U#:[id number] AGE/SX: 49/F ROOM: RE04/19/[address]: Torrie Olson : 1970 BED: DIS: 04/19/2020 SPEC #: [id number] RECD: 04/19/20 12:51 STATUS: REILLY RE #: [id number] KERRY: 04/19/20 08:[address]: Torrie Olson DEPT: Surgical Specimen RECD BY: Trini Dumont ENTERED: 04/19/20 12:52 SP TYPE: STOMACH OTHR DR: Toan Johnson, CLAIM TECHNICIAN Tissues: 1 - BIOPSY BOWEL 2 - STOMACH BIOPSY 3 - STOMACH BIOPSY 4 - ESOPHAGUS BIOPSY 5 - ESOPHAGUS BIOPSY Procedures: GROSS AND MICRO LEVEL 4 Comments: [id number]
--- NOTE | 2020-04-19 09:40 | W.PM.DS.N ---
Date of service: 04/19/20 Time of Service: 09:42 DS: Diagnosis Discharge Diagnosis (1) Colon cancer screening: Status: Acute (2) Smoker unmotivated to quit: Status: Acute (3) Abnormal CT of the abdomen: Status: Acute (4) Adenomatous colon polyp: Status: Acute (5) Hiatal hernia with GERD: Status: Acute (6) Erosive gastritis: Status: Acute Discharge Plan Disposition Patient Disposition: HOME Condition: Good Discharge Details Reason For Visit: EGD and colon Attending Provider: Torrie Olson Primary Care Provider: Toan Johnson Home Meds and New Rx's Prescriptions: New pantoprazole [Protonix] 40 mg tablet,delayed release (DR/EC) 40 mg PO DAILY Qty: 30 RF: 12 Continued hydrocodone-acetaminophen 5-325 mg tablet 1 tab PO Q8H MDD 15mg PRN (Reason: pain) Qty: 30 RF: 0 ibuprofen 200 mg capsule 200 mg PO Q6H PRNRF: 0 dicyclomine 10 mg capsule 10 mg PO BID Qty: 20 RF: 0 cyclobenzaprine 10 mg tablet 10 mg PO TID Qty: 14 RF: 0 Discontinued polyethylene glycol 3350 17 gram/dose powder 238 g PO ONCE Qty: 238 RF: 0 bisacodyl [Dulcolax (bisacodyl)] 5 mg tablet,delayed release (DR/EC) 5 mg PO ONCE Qty: 4 RF: 0 Discharge Instructions Additional Instructions: Findings: gastritis & GERD nl colon Continue with lifestyle modifications: no alcohol, tobacco products, Aspirin or NSAID's (ibuprofen, Motrin, Naprosyn, aleve, etc), soda pop/any carbonated beverages, caffeine (including tea & chocolate), and acidic foods, (tomatoes, citrus, onions, peppermints) spicy foods. Do not lie down for 30 minutes after eating, and do not eat 2 hours prior to bedtime. Avoid wearing tight fitting clothing/ belts. stop smoking avoid NSAID's. Use tylenol for pain. Rx: protonix. take daily on empty stomach Follow up: repeat colon scope in 10 yrs Please call if you develop: fevers >101.5 Nausea or Vomiting Abdominal pain that is not transient DAY SURGERY UNIT POST COLONOSCOPY INSTRUCTIONS 1. Because there will be medication in your system for the next 24 hours, you may feel a little sleepy. Your coordination will be affected. Therefore: a. Do not drive or operate dangerous equipment for 24 hours. b. Do not drink alcohol beverages for 24 hours (not even beer). c. Plan to go home and rest for the day. 2. Generally there are no restrictions on your activity after a day or so has gone by, but you may feel a bit fatigued for a few days. 3 After you arrive home you may have a light meal and return to a normal diet as you can tolerate it without feeling sick to your stomach. 4. After surgery, you may feel pain or discomfort. This should be only transient, but if it persists please contact your doctor. 5. If there are any questions regarding the findings of your procedure, please feel free to contact your doctor. 6. If you are unable to contact your doctor with a problem, contact the hospital at [phone]. 7. Continue all your regular medications unless directed otherwise. I understand the above instructions and have no questions. Signature of Patient or Responsible Adult Escort Date/Time Name of Responsible Adult Escort Signature of Nurse Date/Time Discharge Orders Discharge Orders: Discharge Order (Routine); Ordered 04/19/20 Ordered By: Torrie Olson DS: Summary Status at Discharge Functional status at discharge: independent ambulation Overall status at discharge: patient is back to baseline Mental Status: other Speech and Movement: speech and movement normal Mood: other Affect: normal affect Exam Psych Mental Status: other Speech and Movement: speech and movement normal Mood: other Affect: normal affect DS: Data Vitals/I&O Vitals and I&O: Vital Signs Temperature 36.7 C 04/19/20 07:43 Pulse 73 04/19/20 07:43 Pulse Rhythm Regular 04/19/20 07:43 Respiratory Rate 16 04/19/20 07:43 Respiratory Depth Normal 04/19/20 07:43 Blood Pressure 96/70 L 04/19/20 07:43 Pulse Oximetry 96 04/19/20 07:43 Oxygen Delivery Method Room Air 04/19/20 07:43 Oxygen Flow Rate 0 04/19/20 07:43 Pain Level 5 04/19/20 07:43 Intake & Output 04/18/20 04/18/20 04/19/20 11:59 23:59 11:59 Intake Total 600 / 600 Balance 600 / 600 Weight 47 kg Intake: IV 600 / 600 PFSH Medical History Abnormal CT of the abdomen [place] colon [place] [facility] [place]rosive gastritis Hematuria Hiatal hernia with GERD Hx of renal calculi Multiple renal calculi Smoker unmotivated to quit Surgical History (Updated 04/19/20 @ 08:07 by Najma Morales) Colonoscopy - MAC 10/03/13; [facility] [place] History of esophagogastroduodenoscopy (EGD) Oophrectomy, Left Repair, ACL (~1990) Tonsillectomy (~1999) Vaginal hysterectomy removed right ovary Family History Mother Breast cancer at 70 after recurrence Diabetes Heart disease Brother Thyroid disorder Social History Smoking/Tobacco Use Status: Current every day Tobacco Type: cigarettes Smoking risk assessment performed?: Yes Alcohol Intake: former Drug use: Daily Substance use type: marijuana Details: Last used @ 0100 per pt. -BR Do you feel safe at home: Yes
--- NOTE | 2020-04-19 09:44 | W.PM.ENDDOP ---
Date of service: 04/19/20 Time of Service: 09:44 Endoscopy Report DATE OF PROCEDURE: 04/19/20 PRE-OP DIAGNOSIS: epigastric pain/dysphagia PROCEDURE: egd w/ bx SURGEON: Torrie Olson ANESTHESIA: GETA ESTIMATED BLOOD LOSS: 1 PATHOLOGY: other COMPLICATIONS: None DISPOSITION: same day PROCEDURE DESCRIPTION: After informed consent was obtained the patient was take to the procedure room and placed in a supine position. Monitors were applied and a time out was done. The patients name, date of , procedure type, allergies to medications and metal in their body was reviewed. A bite block was placed and the patient was sedated. Once sedated and comfortable the gastroscope was advanced through the oropharynx which was grossly normal into the esophagus. The proximal and mid-esophagus were nl. In the distal esophagus there was noted: hiatal hernia. There were no esophageal erosions varices diverticula or strictures apparent. She does have a very patulous hiatus. There is no stomach herniated up through the hiatus at the time of doing the procedure. There is no esophagitis. She has diffuse gastritis throughout the body of the stomach and antrum in a striped fashion. Biopsies taken. All specimen is retrieved and no bleeding is noted. The scope was advanced into the stomach and through the pylorus into the 3rd portion of the duodenum. The duodenum was noted to be nl. Biopsies were done. The scope was retracted back into the stomach and biopsies were done to rule out H. pylori. There were no ulcers. The scope was retroflexed. The cardia and fundus were noted to be normal. There medium hiatal hernia noted. The scope was retracted back into the esophagus and biopsies were done of the GE junction to rule out Curtis's. The Z line was regular.
--- NOTE | 2020-04-19 09:49 | COLE_ITS ---
Date of service: 04/19/20 Time of Service: 09:49 Colonoscopy Report Date of procedure: 04/19/20 Pre-op diagnosis general: R abdom pain/constipation Post-op diagnosis procedure note: same Surgeon: Torrie Olson Anesthesia proc note operative: GETA Estimated blood loss (mL): 0 Pathology: none sent Complications: None Disposition: same day Prep: Miralax/Dulcolax Retraction Time: 10mins Procedure Description: After informed consent was obtained the patient was taken to the procedure room and placed in a left decubitous position. Monitors were applied and a time out was done. The patients name, date of , procedure, allergies to medications and metal in their body was reviewed. The patient was then sedated. Once sedated and comfortable a rectal exam was done. External exam was normal. Internal exam revealed a normal sphincter tone and no palpable masses. The scope was then introduced and retrofelexed. NO internal hemorrhoids were identified. The scope was then advanced to the cecum w/mild-difficulty- she is quite thin; the colon is rather tortuous. The TI and appendiceal orifice were identified. The prep was good. The scope was then slowly retracted over 10 minutes back into the rectum. There are no polyps, diverticula, AVMs, or other abnormalities appreciated. The mucosa is pink and healthy. The scope was removed and the patient was woken up and taken back to Same day surgery in stabl e condition. The patient tolerated the procedure well and there were no immediate complications. Follow up: The patient should follow up in 10 years unless they develop changes in bowel habits or other new gastrointestinal complaints.
[2020-04-19 09:50] VITALS: BP 102/72; PULSE 62; RESP 16; TEMP 36.2; O2SAT 98
--- NOTE | 2020-04-19 10:41 | W.PM.DSUDISC ---
Discharge Plan Disposition Patient Disposition: HOME Condition: Good Discharge Details Reason For Visit: EGD and colon Attending Provider: Torrie Olson Primary Care Provider: Toan Johnson Home Meds and New Rx's Prescriptions: New pantoprazole [Protonix] 40 mg tablet,delayed release (DR/EC) 40 mg PO DAILY Qty: 30 RF: 12 sucralfate [Carafate] 1 gram tablet 1 g PO QACHS PRN (Reason: take in am and HS and q6 as needed for heartburn ) Qty: 90 RF: 12 Continued hydrocodone-acetaminophen 5-325 mg tablet 1 tab PO Q8H MDD 15mg PRN (Reason: pain) Qty: 30 RF: 0 ibuprofen 200 mg capsule 200 mg PO Q6H PRNRF: 0 dicyclomine 10 mg capsule 10 mg PO BID Qty: 20 RF: 0 cyclobenzaprine 10 mg tablet 10 mg PO TID Qty: 14 RF: 0 Discontinued polyethylene glycol 3350 17 gram/dose powder 238 g PO ONCE Qty: 238 RF: 0 bisacodyl [Dulcolax (bisacodyl)] 5 mg tablet,delayed release (DR/EC) 5 mg PO ONCE Qty: 4 RF: 0 Discharge Instructions Additional Instructions: Findings: gastritis & GERD nl colon Continue with lifestyle modifications: no alcohol, tobacco products, Aspirin or NSAID's (ibuprofen, Motrin, Naprosyn, aleve, etc), soda pop/any carbonated beverages, caffeine (including tea & chocolate), and acidic foods, (tomatoes, citrus, onions, peppermints) spicy foods. Do not lie down for 30 minutes after eating, and do not eat 2 hours prior to bedtime. Avoid wearing tight fitting clothing/ belts. stop smoking avoid NSAID's. Use tylenol for pain. Rx: protonix. take daily on empty stomach. Take a carafate in am and at bedtime, scheduled. Can also take every 6hrs as needed for gerd s/s. Follow up: repeat colon scope in 10 yrs Please call if you develop: fevers >101.5 Nausea or Vomiting Abdominal pain that is not transient DAY SURGERY UNIT POST COLONOSCOPY INSTRUCTIONS 1. Because there will be medication in your system for the next 24 hours, you may feel a little sleepy. Your coordination will be affected. Therefore: a. Do not drive or operate dangerous equipment for 24 hours. b. Do not drink alcohol beverages for 24 hours (not even beer). c. Plan to go home and rest for the day. 2. Generally there are no restrictions on your activity after a day or so has gone by, but you may feel a bit fatigued for a few days. 3 After you arrive home you may have a light meal and return to a normal diet as you can tolerate it without feeling sick to your stomach. 4. After surgery, you may feel pain or discomfort. This should be only transient, but if it persists please contact your doctor. 5. If there are any questions regarding the findings of your procedure, please feel free to contact your doctor. 6. If you are unable to contact your doctor with a problem, contact the hospital at [phone]. 7. Continue all your regular medications unless directed otherwise. I understand the above instructions and have no questions. Signature of Patient or Responsible Adult Escort Date/Time Name of Responsible Adult Escort Signature of Nurse Date/Time Activity:: No lifting over 20 pounds or strenuous activity x24 hours Diet:: Small light meals x24 hours. Discharge Orders Discharge Orders: Discharge Order (Routine); Ordered 04/19/20 Ordered By: Torrie Olson DS: Diagnosis Discharge Diagnosis (1) Colon cancer screening: Status: Acute (2) Smoker unmotivated to quit: Status: Acute (3) Abnormal CT of the abdomen: Status: Acute (4) Adenomatous colon polyp: Status: Acute (5) Hiatal hernia with GERD: Status: Acute (6) Erosive gastritis: Status: Acute
== END 2020-04-19 10:49 | disposition home or self-care (01) ==
PROVIDERS: PCP Nurse Practitioner Family; Visit Provider Surgery
PROC: (CPT 43239; principal; 2020-04-19 08:30)
DX: R10.13 Epigastric pain; R13.10 Dysphagia, unspecified; K31.89 Other diseases of stomach and duodenum; K44.9 Diaphragmatic hernia without obstruction or gangrene; K59.00 Constipation, unspecified; K29.70 Gastritis, unspecified, without bleeding; Q43.8 Other specified congenital malformations of intestine
CPT/HCPCS: 43239; 45378; 88305; NC

== ENCOUNTER 2020-05-01 01:33 | Outpatient (CLI) | payer MEDICAID, SELFPAY ==
--- NOTE | 2020-05-01 15:00 | DI.MAMMO_ITS ---
EXAM: MG MAMMO SCREENING CLINICAL HISTORY: screening TECHNIQUE: Mammograms were interpreted according to the usual protocol including computer analysis w [employer] CAD system, tomosynthesis and C-view imaging. COMPARISON: FINDINGS: The breasts are heterogeneously dense. No dominant mass or clumped microcalcification is identified in either breast. No prior examinations are available for comparison. IMPRESSION: No specific evidence of malignancy at this time. Routine screening examinations are suggested at yea rly intervals due to the family history of breast carcinoma. BI-RADS Category 1 - Negative Breast Density - Category C - Heterogeneously dense
== END 2020-05-01 01:53 ==
PROVIDERS: PCP Nurse Practitioner Family; Visit Provider Nurse Practitioner Family
DX: Z12.31 Encounter for screening mammogram for malignant neoplasm of breast (principal)
CPT/HCPCS: 77063; 77067

== ENCOUNTER 2021-12-13 19:57 | Emergency (ER) | payer MEDICAID, SELFPAY ==
[2021-12-13 20:00] VITALS: BP 121/68; PULSE 85; RESP 16; TEMP 36.1; O2SAT 100
--- NOTE | 2021-12-13 20:33 | W.ED.GENAD ---
Discharge Plan Disposition Patient Disposition: HOME Condition: Stable Discharge Details Clinical Impression: Otalgia of right ear Primary Care Provider: Toan Johnson ED Provider: Segundo Sethi Home Meds and New Rx's Prescriptions: New amoxicillin 875 mg tablet 875 mg PO BID Qty: 20 0RF Continued ibuprofen 200 mg capsule 200 mg PO Q6H PRN Discharge Instructions Instructions: Earache (ED) Additional Instructions: Amoxicillin as directed. [id number] Tylenol, Motrin, antihistamines and decongestant as directed for symptomatic control. Please watch for new or worsening symptoms and return to the ER for any concerns. Lastly contact your primary care provider on Thursday to discuss your ER visit need for outpatient reevaluation. Discharge Data Discharge Date/Time-TO BE ENTERED AT DEPARTURE: 12/13/21 20:43 Medical Decision Making 51-year-old female who reports flying from [place] to [place] on Thursday and shortly after developed right ear pain, felt as though her ear never popped or equalize. She appears nontoxic but does endorse moderate to significant discomfort. Her TM is erythematous and bulging but there is no obvious perforation or air-fluid level. Difficult to determine whether this could be barotrauma versus otitis media. Discussed options with patient. Will initiate antibiotic therapy, first dose of amoxicillin given now. We will also treat with anti-inflammatory medication, antihistamine and decongestants. Lastly I will provide a take-home pack of Percocet to help her get through the evening and into tomorrow. Standard discharge and return precautions were provided. Patient understands, is agreeable to this plan, and has no additional questions or concerns upon discharge. This documentation was generated using [employer] system, please disregard any oddities of phrase or misspellings. Medical Records Medical records reviewed: Yes I reviewed the patient's medical records. HPI General Mode of arrival: ambulatory. Date/Time Provider Initiated Documentation: 12/13/21 19:58. Limitations to Documentation: no limitations. Information obtained by: patient. History of Present Illness 51 year old F presents to the emergency department with the chief complaint of Right ear pain, described as severe, with intensity rated at 8. Quality is described as aching, and is localized to the head (R ear). Patient reports no radiation. Patient started experiencing this day(s) (3) and it has been constant. No relieving factors improve symptom(s), No exacerbating factors reported . Patient notes no other symptoms.. Patient did receive the following treatments prior to arrival, NSAID Related Data Home Medications Medication Instructions Recorded Confirmed ibuprofen 200 mg capsule 200 mg PO Q6H PRN 04/02/20 12/13/21 amoxicillin 875 mg tablet 875 mg PO BID #20 tabs 12/13/21 Previous Rx's Medication Instructions Recorded amoxicillin 875 mg tablet 875 mg PO BID #20 tabs 12/13/21 Allergies Allergy/AdvReac Type Severity Reaction Status Date / Time Penicillins Allergy Intermediate facial Verified 12/13/21 20:02 swelling tramadol AdvReac Intermediate jessica Verified 12/13/21 20:02 codeine AdvReac Mild Skin Rash Verified 12/13/21 20:02 ketorolac tromethamine AdvReac Mild Skin Rash Verified 12/13/21 20:02 [From Toradol] meperidine AdvReac Mild skin crawls Verified 12/13/21 20:02 General Stated Complaint: EarProblem RALPH: 4 Review of Systems Constitutional Constitutional: Denies fever(s) and Denies headache(s) ENT Ears, Nose, Mouth, and Throat: Denies headache(s), Denies nasal congestion and Denies sore throat Cardiovascular Cardiovascular: Denies chest pain Respiratory Respiratory: Denies cough Integumentary/Breasts Skin/Breast: Denies rash Neurologic Neurologic: Denies headache(s) PFSH All Active Problems Otalgia of right ear (Acute) Left hip pain (Acute) Erosive gastritis (Acute) Hiatal hernia with GERD (Acute) Colon cancer screening (Acute) Diabetes mellitus screening (Acute) Screening cholesterol level (Acute) Hypotension (Acute) Renal calculi (Chronic) Multiple renal calculi (Acute) Hematuria (Acute) Smoker unmotivated to quit (Acute) Abnormal CT of the abdomen (Acute) Adenomatous colon polyp (Acute) 2013 [facility] [place] Hx of renal calculi (Acute) Medical History Esophagitis History of esophageal reflux Surgical History Colonoscopy - [facility] [place]13[place] [facility] [place] of colonoscopy (~04/19/20) Stoiber, Normal History of esophagogastroduodenoscopy (EGD) (~04/19/20) Oophrectomy, Left Repair, ACL (~1990) Tonsillectomy (~1999) Vaginal hysterectomy removed right ovary Family History Mother Breast cancer at 70 after recurrence Diabetes Heart disease Brother Thyroid disorder Social History Smoking/Tobacco Use Status: Current every day Tobacco Type: cigarettes Smoking risk assessment performed?: Yes Alcohol Intake: former Drug use: Daily Substance use type: marijuana Details: Last used @ 0100 per pt. -BR Do you feel safe at home: Yes Do you feel safe in your relationship?: Yes Exam Const General: cooperative, healthy appearing, comfortable and no acute distress Orientation: alert and awake HENNV Head: normal to inspection, normocephalic and atraumatic Ears: hearing grossly normal bilaterally, external ears normal, TM normal on the right, TM normal on the left, EAC's normal, external ear abnormal and TM abnormal bulging and erythematous; not perforated Face and sinus: normal facial exam Mouth: moist mucous membranes Teeth and gingiva: dentition normal Eyes General: appearance normal, both eyes and all related structures Conjunctivae: conjunctivae normal Neck Neck: normal visual inspection, full ROM, no meningeal signs, trachea midline and supple Resp Effort & Inspection: normal respiratory effort and able to speak in complete sentences Skin General skin exam: no rashes or lesions noted Neuro General: patient alert, patient awake, moves all extremities and no focal motor deficits Sensory Exam: no sensory deficits noted Psych Appearance: grossly normal Mental Status: mental status grossly normal Course Vital Signs Vital signs: Vital Signs Temperature 36.1 C L 12/13/21 20:00 Pulse 85 12/13/21 20:00 Respiratory Rate 16 12/13/21 20:00 Blood Pressure 121/68 12/13/21 20:00 Pulse Oximetry 100 12/13/21 20:00 Temperature 36.1 C L 12/13/21 20:00 Pulse 85 12/13/21 20:00 Respiratory Rate 16 12/13/21 20:00 Respiratory Effort Non-Labored 08/12/22 20:03 Blood Pressure 121/68 08/12/22 20:00 Pulse Oximetry 100 12/13/21 20:00 Pain Level 8 12/13/21 20:03
[2021-12-13] MEDS: Amoxicillin 875 MG TAB PO (20:45)
== END 2021-12-13 20:43 | disposition home or self-care (01) ==
PROVIDERS: Emergency Provider Physician Assistant; PCP Nurse Practitioner Family
DX: H92.01 Otalgia, right ear (principal); F17.210 Nicotine dependence, cigarettes, uncomplicated
CPT/HCPCS: 99283; 99284

== ENCOUNTER 2023-05-31 07:50 | Emergency (ER) | payer MEDICAID, SELFPAY ==
[2023-05-31 07:53] VITALS: BP 151/80; PULSE 79; RESP 13; TEMP 36.7; O2SAT 100
[2023-05-31 07:57] VITALS: BP 151/80; PULSE 79; RESP 13; TEMP 36.7; O2SAT 100
--- NOTE | 2023-05-31 08:08 | ED.GENADUL_ITS ---
HPI General Date/Time Provider Initiated Documentation: 05/31/23 07:51 . Limitations to Documentation: no limitations . Information obtained by: patient . HPI Narrative: 53-year-old female without significant past medical history presents for evaluation of right-sided facial pain. She reports for the last 10 days she has been having right-sided throbbing localized to the right cheek. No trauma. Pain slightly relieved with Orajel or Advil. She is a smoker. She reports fever 2 days ago. Reports this morning she had nasal congestion and drainage. Related Data Home Medications Medication Instructions Recorded Confirmed ibuprofen 200 mg capsule 200 mg PO Q6H PRN 04/02/20 05/31/23 amoxicillin 875 mg tablet 875 mg PO BID #20 tabs 12/13/21 05/31/23 chlorhexidine gluconate 0.12 % 15 ml mucous membrane BID #600 mL 05/31/23 mouthwash metronidazole 500 mg tablet 500 mg PO BID 5 days #10 tabs 05/31/23 Previous Rx's Medication Instructions Recorded amoxicillin 875 mg tablet 875 mg PO BID #20 tabs 12/13/21 chlorhexidine gluconate 0.12 % 15 ml mucous membrane BID #600 mL 05/31/23 mouthwash metronidazole 500 mg tablet 500 mg PO BID 5 days #10 tabs 05/31/23 Allergies Allergy/AdvReac Type Severity Reaction Status Date / Time Penicillins Allergy Intermediate facial Verified 05/31/23 08:01 swelling tramadol AdvReac Intermediate jessica Verified 05/31/23 08:01 codeine AdvReac Mild Skin Rash Verified 05/31/23 08:01 ketorolac tromethamine AdvReac Mild Skin Rash Verified 05/31/23 08:01 [From Toradol] meperidine AdvReac Mild skin crawls Verified 05/31/23 08:01 General Stated Complaint: FacialProb RALPH: 4 Exam Narrative Exam Narrative: Review of Systems: All systems reviewed & are unremarkable except as noted in HPI and below Well-developed, no acute distress NACT Bilateral TMs clear, not erythematous or bulging no sinus tenderness to palpation Mild nasal mucosa edema Multiple areas of dental caries, the right upper maxillary teeth are carious with gingival erosion and irritation noted, no obvious abscess PERRL, normal conjunctiva RRR Unlabored respiratory effort Nondistended abdomen Extremities w/o deformity, no cyanosis, no edema No rashes or lesions. no focal neurologic deficits Appropriate mood and affect Course Vital Signs Vital signs: Vital Signs Temperature 36.7 C 05/31/23 07:53 Pulse 79 05/31/23 07:53 Respiratory Rate 13 05/31/23 07:53 Blood Pressure 151/80 H 05/31/23 07:53 Pulse Oximetry 100 05/31/23 07:53 Temperature 36.7 C 05/31/23 07:57 Temperature Source Oral 05/31/23 07:57 Pulse 79 05/31/23 07:57 Respiratory Rate 13 05/31/23 07:57 Blood Pressure 151/80 H 05/31/23 07:57 Blood Pressure Position Sitting 05/31/23 07:57 Pulse Oximetry 100 05/31/23 07:57 Oxygen Delivery Method Room Air 05/31/23 07:57 Oxygen Flow Rate 0 05/31/23 07:57 Pain Level 9 05/31/23 08:02 Medical Decision Making Emergent evaluation of right-sided facial pain. Initial differential includes sinusitis, gingivitis, dental caries, dental abscess. Patient will be tested for viral infections, flu COVID and RSV. Examination is most consistent with dental caries and ulcerative gingivitis. Will treat with chlorhexidine and Flagyl. Patient is waiting for her dental insurance to provide a card so that she can schedule an appointment with dentist. Initial doses of Flagyl provided in the emergency department. Remaining prescription for full 7 days sent to the pharmacy. Provided with chlorhexidine mouth rinse. Return precautions advised. Encouraged to follow-up with dentist as soon as possible. Viral testing negative today. No additional medications needed. Discharged in good condition. Medical Records Medical records reviewed: Yes I reviewed the patient's medical records. Lab Data Lab results reviewed: Yes I reviewed the patient's lab results. Quality:[facility] Health Related Social Needs: No Data to Display PFSH All Active Problems (Updated 05/31/23 @ 08:32 by Derrick Peguero MD) Acute facial pain (Acute) Acute ulcerative gingivitis (Acute) Left hip pain (Acute) Erosive gastritis (Acute) Hiatal hernia with GERD (Acute) Colon cancer screening (Acute) Diabetes mellitus screening (Acute) Screening cholesterol level (Acute) Hypotension (Acute) Renal calculi (Chronic) Multiple renal calculi (Acute) Hematuria (Acute) Smoker unmotivated to quit (Acute) Abnormal CT of the abdomen (Acute) Adenomatous colon polyp (Acute[place] [facility] [place] of [place] calculi (Acute) Medical History History of esophageal reflux Esophagitis Surgical History History of colonoscopy (~04/19/20) Stoiber, Normal History of esophagogastroduodenoscopy (EGD) (~04/19/20) Tonsillectomy (~1999) Repair, ACL (~1990) Oophrectomy, Left Vaginal hysterectomy removed right ovary Colonoscopy - [facility] 10/03/13; [facility] [place] Family History Mother Breast cancer at 70 after recurrence Diabetes Heart disease Brother Thyroid disorder Social History Smoking/Tobacco Use Status: Current every day Tobacco Type: cigarettes Smoking risk assessment performed?: Yes Alcohol Intake: former Drug use: Daily Substance use type: marijuana Details: Last used @ 0100 per pt. -BR Housing: house Do you feel safe at home: Yes Do you feel safe in your relationship?: Yes Discharge Plan Disposition Patient Disposition: Home Condition: Good Discharge Details Clinical Impression: Acute ulcerative gingivitis, Acute facial pain Primary Care Provider: Toan Johnson ED Provider: Derrick Peguero Home Meds and New Rx's Prescriptions: New metronidazole 500 mg tablet 500 mg PO BID 5 Days Qty: 10 0RF chlorhexidine gluconate 0.12 % mouthwash 15 ml mucous membrane BID Qty: 600 0RF Rx Instructions: swish and spit No Action ibuprofen 200 mg capsule 200 mg PO Q6H PRN amoxicillin 875 mg tablet 875 mg PO BID Qty: 20 0RF Discharge Instructions Instructions: Gingivitis (ED) Additional Instructions: You have been given the first 2 days of the Flagyl medication. supervisor quality control the rest of that prescription to take a full 7 days. Do not drink alcohol on this medication, as it can make you feel very sick. Use the mouthwash twice daily. Please follow-up with a dentist as soon as possible. Continue Motrin and Tylenol as needed for pain.
[2023-05-31] MEDS: metroNIDAZOLE 500 MG TAB PO (08:21)
[2023-05-31] MEDS: Acetaminophen 500 MG TAB 1000 MG PO (08:21)
[2023-05-31 08:40] LABS: COVID-19 PCR Negative (Negative); Influenza A PCR Negative (Negative); Influenza B PCR Negative (Negative); RSV PCR Negative (Negative)
[2023-05-31] MEDS: metroNIDAZOLE 500 MG TAB, 3 TABS/BTL PO (08:41)
[2023-05-31 08:42] LABS: Source Nasopharynx
== END 2023-05-31 08:53 | disposition home or self-care (01) ==
PROVIDERS: Emergency Provider Emergency Medicine; PCP Nurse Practitioner Family
DX: K05.00 Acute gingivitis, plaque induced (principal); G50.1 Atypical facial pain
CPT/HCPCS: 87637; 99283

== ENCOUNTER 2023-06-06 21:47 | Emergency (ER) | payer MEDICAID, SELFPAY ==
[2023-06-06 21:50] VITALS: BP 145/87; PULSE 98; RESP 16; TEMP 36.8; O2SAT 99
--- NOTE | 2023-06-06 22:01 | W.ED.GENAD ---
HPI General Mode of arrival: ambulatory. Date/Time Provider Initiated Documentation: 06/06/23 21:49. Limitations to Documentation: no limitations. Information obtained by: patient, RN notes reviewed and old records reviewed. HPI Narrative: 53 year old female presents to the ED with cc of left sided upper dental pain. Seen here 5 days ago and given Chlorahexadine Mouthwash and prescribed antibiotics (Flagyl x 7 days). which patient reports she finished taking as prescribed. She presents crying. No posteror oropharynx swelling, no exudate, no signs of abscess or area of fluctuance or drainage. Anika is a daily smoker. Related Data Home Medications Medication Instructions Recorded Confirmed ibuprofen 200 mg capsule 200 mg PO Q6H PRN 04/02/20 06/06/23 chlorhexidine gluconate 0.12 % 15 ml mucous membrane BID #600 mL 05/31/23 06/06/23 mouthwash Previous Rx's Medication Instructions Recorded chlorhexidine gluconate 0.12 % 15 ml mucous membrane BID #600 mL 05/31/23 mouthwash Allergies Allergy/AdvReac Type Severity Reaction Status Date / Time Penicillins Allergy Intermediate facial Verified 06/06/23 21:57 swelling tramadol AdvReac Intermediate jessica Verified 06/06/23 21:57 codeine AdvReac Mild Skin Rash Verified 06/06/23 21:57 ketorolac tromethamine AdvReac Mild Skin Rash Verified 06/06/23 21:57 [From Toradol] meperidine AdvReac Mild skin crawls Verified 06/06/23 21:57 General Stated Complaint: DentalOral RALPH: 5 Review of Systems All systems reviewed & are unremarkable except as noted in HPI and below ENT Ears, Nose, Mouth, and Throat: Reports dental pain Exam HENMT Teeth and gingiva: poor dentition Teeth image: 1. Absent 2. Dental caries and gingivitis Course Vital Signs Vital signs: Vital Signs Temperature 36.8 C 06/06/23 21:50 Pulse 98 H 06/06/23 21:50 Respiratory Rate 16 06/06/23 21:50 Blood Pressure 145/87 H 06/06/23 21:50 Pulse Oximetry 99 06/06/23 21:50 Temperature 36.8 C 06/06/23 21:50 Pulse 98 H 06/06/23 21:50 Respiratory Rate 16 06/06/23 21:50 Respiratory Effort Normal 06/06/23 21:54 Blood Pressure 145/87 H 06/06/23 21:50 Pulse Oximetry 99 06/06/23 21:50 Pain Level 10 06/06/23 21:54 Procedures Nerve Block Nerve Block 1: Time out performed: No Local Anesthetic: Lidocaine 1% and Bupivicaine 0.5% Amount of anesthesia used (mL): 2 Side: right Intraoral Nerve Block: superior alveolar Procedure Successful: Yes Patient Tolerated Procedure: well Complications: none Medical Decision Making 53 year old female presents to the ED with cc of left sided upper dental pain. Seen here 5 days ago and given Chlorahexadine Mouthwash and prescribed antibiotics (Flagyl x 7 days). which patient reports she finished taking as prescribed. She presents crying. No posteror oropharynx swelling, no exudate, no signs of abscess or area of fluctuance or drainage. Anika is a daily smoker. Offered a dental block which patient accepted. Given Hurricaine gel topically. Superior alveolar dental block performed with 1% Lidocaine and 0.5% Bupivicaine patient tolerated well, anesthesia achieved. Instructed on Home care, she verbalized understanding. This text was generated using [employer] dictation system, please disregard any oddities of phrase or misspellings. Quality:SDOH Health Related Social Needs: No Data to Display PFSH All Active Problems (Updated 06/06/23 @ 22:22 by Karolina Leyva NP) Pain due to dental caries (Acute) Acute facial pain (Acute) Acute ulcerative gingivitis (Acute) Left hip pain (Acute) Erosive gastritis (Acute) Hiatal hernia with GERD (Acute) Colon cancer screening (Acute) Diabetes mellitus screening (Acute) Screening cholesterol level (Acute) Hypotension (Acute) Renal calculi (Chronic) Multiple renal calculi (Acute) Hematuria (Acute) Smoker unmotivated to quit (Acute) Abnormal CT of the abdomen (Acute) Adenomatous colon polyp (Acute) 2013 [facility] [place] Hx of renal calculi (Acute) Medical History History of esophageal reflux Esophagitis Surgical History History of colonoscopy (~04/19/20) Stoiber, Normal History of esophagogastroduodenoscopy (EGD) (~04/19/20) Tonsillectomy (~1999) Repair, ACL (~1990) Oophrectomy, Left Vaginal hysterectomy removed right ovary [place] [facility] [place] Mother Breast cancer at 70 after recurrence Diabetes Heart disease Brother Thyroid disorder Social History Smoking/Tobacco Use Status: Current every day Tobacco Type: cigarettes Smoking risk assessment performed?: Yes Alcohol Intake: former Drug use: Daily Substance use type: marijuana Details: Last used @ 0100 per pt. -BR Housing: house Do you feel safe at home: Yes Do you feel safe in your relationship?: Yes Discharge Plan Disposition Patient Disposition: Home Condition: Stable Discharge Details Chief Complaint: DentalOral Clinical Impression: Pain due to dental caries Primary Care Provider: Toan Johnson ED Provider: Karolina Leyva Home Meds and New Rx's Prescriptions: No Action ibuprofen 200 mg capsule 200 mg PO Q6H PRN chlorhexidine gluconate 0.12 % mouthwash 15 ml mucous membrane BID Qty: 600 0RF Rx Instructions: swish and spit Discharge Instructions Instructions: Dental Caries (ED) Additional Instructions: Please see a dentist. Practice good oral hygiene, brush teeth twice daily, rinse after eating or drinking. Stay away from alcohol. Consider quitting smoking. Please take Tylenol or Ibuprofen with food every 4-6 hours as needed for pain and swelling. Please use the topical numbing medication up to 3 times daily as needed. The injection will last for approximately 4 to 6 hours. Referrals: Toan Johnson NP [Primary Care Provider] - 5 days
[2023-06-06] MEDS: Benzocaine 20% Gel 30 GM JAR MM (22:06)
[2023-06-06] MEDS: Bupivacaine 0.5% Pres-Free 30 ML VIAL IJ (22:10)
== END 2023-06-06 22:25 | disposition home or self-care (01) ==
PROVIDERS: Emergency Provider Registered Nurse Emergency; PCP Nurse Practitioner Family
DX: K08.89 Other specified disorders of teeth and supporting structures (principal)
CPT/HCPCS: 64400; J0665

== ENCOUNTER 2024-01-18 12:22 | Emergency (ER) | payer MEDICAID, SELFPAY ==
[2024-01-18] VITALS (20 sets, daily range): BP systolic 106–177; BP diastolic 65–95; PULSE 65–97; RESP 11–32; TEMP 36.9; O2SAT 96–100
--- NOTE | 2024-01-18 12:15 | RT.EKG_ITS ---
APPROVED REPORT Exam: Resting ECG Reason for Exam: Palpatations Patient Location: E HR:81 bpm ECG Measurements Heart Rate 81 AXIS VT 173 P 85 QRSd 95 QRS 93 QT 360 T 71 QTc 417 Conclusion Sinus rhythm...normal P axis, V-rate 60- 99 Probable left atrial enlargement...P >50mS, <-0.10mV V1 Anteroseptal infarct, age indeterminate...Q >35mS, T neg, V1-V2 Narrow complex normal sinus rhythm at a rate of 81. Normal axis. Intervals within normal limits. N o ST segment abnormalities. T wave inversion in aVL. No acute injury pattern. No prior for compari son.
--- NOTE | 2024-01-18 12:30 | DI.RAD_ITS ---
Exam(s) XR CHEST 2V PA LATERAL EXAM: XR CHEST 2V PA LATERAL CLINICAL HISTORY: CP radiating to left side of chest. TECHNIQUE: 2D digital imaging was performed. COMPARISON: No exams were available for comparison FINDINGS: 2 views: Heart size is normal. The mediastinum is not widened. Lungs are clear. No infiltrates nor pleural effusions. IMPRESSION: No acute pulmonary findings. DATA REPOSITORY: RADIATION DOSE DELIVERED:
--- OUTSIDE RECORDS SUMMARY | 2024-01-18 12:34 | XMS_ITS | Clinical Summary ---
Author Organization [facility] Address [address] [place] [id number] Care Team Providers Care Content Director Name Role Phone Toan Johnson Primary Care Provider [phone]- [phone] Social History Tobacco Use Types Packs/Day Years Used Date Smoking Tobacco: Never Assessed Sex and Gender Information Value Date Recorded Sex Assigned at Not on file Gender Identity Not on file Sexual Orientation Not on file Plan of Treatment Health Maintenance Due Date Last Done Comments Hepatitis C Screen 1970 Hepatitis B Vaccine (1 of 3 - 19+ 3-dose series) 05/21 COVID-19 Vaccine (2022- season) 2023 Care Teams Content Director Relationship Specialty Start Date End Date Toan Johnson [address] [place] [phone] PCP - General Family Medicine - Hospital Medicine 04/19/20
--- OUTSIDE RECORDS SUMMARY | 2024-01-18 12:35 | XMS_ITS | Encounter Summary ---
Author Organization [facility] Address [address] [place] [address] Care Team Providers Care Cylinder Press Operator Helper Name Role Phone Unavailable Primary Care Provider Unavailabl e Encounter Details Date Type Department Care Team (Late st Contact Info) Description 08/03/2000 Results Only [facility] [address] [place] [address] Vladislav Lemon MD [address] [place] [address] Social History Tobacco Use Types Packs/Day Years Used Date Smoking Tobacco: Never Assessed Sex and Gender Information Value Date Recorded Sex Assigned at Not on file Gender Identity Not on file Sexual Orientation Not on file documented as of this encounter Plan of Treatment Not on file documented as of this encounter Procedures Procedure Name Priority Date/Time Associated Diagnosis Comments SURGICAL PATHOLOGY Routine 08/03/2000 0:00 EDT documented in this encounter Results * SURGICAL PATHOLOGY (08/03/2000 0:00 EDT) Pathology Report: SURGICAL PATHOLOGY REPORT Reports generated via electronic interface contain original data; however they are lacking the format of the original report. Caution should be taken when reading/interpreti ng unformatted reports. Name: ? JESSICA EPSTEIN ? Accession #: ? [id number] ? : ? 1970 (Age: 30) ??F ? Collect Date: ? 08/03/2000 ? Location: ? [facility] ? Receive Date: ? 08/05/2000 ? Provider: VLADISLAV LEMON MD Copy to: LESLIE YEAGER MD ? Final Pathologic Diagnosis: A. ?Endometrium, curettage: 1. ?Secretory phase endometrium, circa day . B. ?Peritoneal cavity, cul-de-sac, biopsy: 1. ?Mesothelial lined fibrovascular tissue with focal mild chronic inflammation. 2. ?No endometriosis identified. C. ?Peritoneal cavity, region of left uterosacral ligament, biopsy: 1 ?Mesothelial lined fibrovascular tissue with focal mild chronic inflammation. ? 2. ? No endometriosis identified. Document reviewed and electronically signed by: LESLIE YEAGER MD Report ??Date: 08/06/2000 15:34 By the signature above, the attending physician certifies that he/she has personally conducted a gross and/or microscopic examination of the described specimens and rendered or confirmed the above diagnosis. Specimen(s) Received: A. ?Endometrial curettings B. ?Cul-de-sac bx C. ?L uterosacral peritoneum Clinical History: ? Pelvic pain Gross Description: ? Received in formalin labelled Robe and endometrial curettings are 1.5 x 0.5 x 0.2 cm of duron-red mucinous material. ??The specimen is entirely submitted as (A). ?? Received in formalin labelled Robe and Cul-de-sac bx is a duron-white rubbery 1.0 x 0.6 x 0.4 cm soft tissue. ??The specimen is entirely submitted as (B). ?? Received in formalin labelled Robe and L uterosacral is a duron-leija focally hemorrhagic 2.0 x 1.3 x 0.4 cm soft tissue. ??The specimen is longitudinally sectioned and entirely submitted as (C). ??(Poncho Lobo)/michele End of Report SASK[facility] SANCHEZ 08/03/2000 08/05/2000 8:5 9 EDT Vladislav Lemon MD PATHOLOGY ORDERABLES [facility] [address] [place] [address] documented in this encounter Visit Diagnoses Not on filedocumented in this encounter
--- OUTSIDE RECORDS SUMMARY | 2024-01-18 12:35 | XMS_ITS | Encounter Summary ---
Author Organization [facility] Address [address] [place] [address] Care Team Providers Care Digital Computer Systems Analyst Name Role Phone Unavailable Primary Care Provider Unavailabl e Encounter Details Date Type Department Care Team (Late st Contact Info) Description 07/08/2001 Results Only [facility] - [facility] [address] [place] [address] Vladislav Lemon MD [address] [place] [address] Social History Tobacco Use Types Packs/Day Years Used Date Smoking Tobacco: Never Assessed Sex and Gender Information Value Date Recorded Sex Assigned at Not on file Gender Identity Not on file Sexual Orientation Not on file documented as of this encounter Plan of Treatment Not on file documented as of this encounter Procedures Procedure Name Priority Date/Time Associated Diagnosis Comments CYTOPATHOLOGY Routine 07/08/2001 0:00 EST documented in this encounter Results * CYTOPATHOLOGY (07/08/2001 0:00 EST) Pathology Report: CYTOPATHOLOGY REPORT Reports generated via electronic interface contain original data; however they are lacking the format of the original report. Caution should be taken when reading/interpreti ng unformatted reports. Name: ? JESSICA EPSTEIN ? Accession #: ? [id number] : ? 1970 (Age: 31) ??F ?Collect Date: ? 07/08/2001 Location: ? [facility] ? Receive Date: ? 07/12/2001 Provider: ?VLADISLAV LEMON MD Copy to: ? Specimen/Source: ?ThinPrep Pap Test, Cervix/Endocervix Last Menstrual Period: ? 06/24/01 Previous Gynecologic Pathology: ? Benign cellular changes: normal paps since ? SPECIMEN ADEQUACY ? Satisfactory for Evaluation - transformation zone component present GENERAL CATEGORIZATION ? Negative for Intraepithelial Lesion or Malignancy ? Document reviewed and electronically signed by: ? AMADOU Hernandez(ASCP) ? Report Date: ??07/15/2001 13:22 End of Report SASKIA SANCHEZ 07/08/2001 07/12/2001 Vladislav Lemon MD PATHOLOGY ORDERABLES [facility] [address] [place] [address] documented in this encounter Visit Diagnoses Not on filedocumented in this encounter
--- OUTSIDE RECORDS SUMMARY | 2024-01-18 12:35 | XMS_ITS | Referral Summary ---
Author Organization [facility] Address [address] [place] [address] Care Team Providers Care Crane Hooker Name Role Phone Toan Johnson Primary Care Provider [phone]- [phone] Social History Tobacco Use Types Packs/Day Years Used Date Smoking Tobacco: Never Assessed Sex and Gender Information Value Date Recorded Sex Assigned at Not on file Gender Identity Not on file Sexual Orientation Not on file Plan of Treatment Not on file Care Teams Crane Hooker Relationship Specialty Start Date End Date Toan Johnson [address] [place] [address] [address] [place] [phone] PCP - General Family Medicine - Hospital Medicine 04/19/20
--- OUTSIDE RECORDS SUMMARY | 2024-01-18 12:35 | XMS_ITS | Encounter Summary ---
Author Organization [facility] Address [facility] [place] [address] Care Team Providers Care Quality Inspector Name Role Phone Criss Youssef MD Primary Care Provider [phone] Encounter Details Date Type Department Care Team (Latest Contact Info) Description 10/03/2013 9:49 AM EDT - 10/03/2013 6:37 PM EDT Hospital [place] [address] Monty Bowman MD [facility] [place] [address] Criss Laguerre MD [facility] [address] [place] [address] Discharge Disposition: Home Social History Tobacco Use Types Packs/Day Years Used Date Smoking Tobacco: Never Assessed Sex and Gender Information Value Date Recorded Sex Assigned at Not on file Gender Identity Not on file Sexual Orientation Not on file documented as of this encounter Last Filed Vital Signs Vital Sign Reading Time Taken Comments Blood Pressure 105/54 10/03/2013 11:19 AM EDT Pulse 52 10/03/2013 11:19 AM EDT Temperature 36.6 ??C (97.9 ??F) 10/03/2013 9:57 AM ED T Respiratory Rate 12 10/03/2013 11:19 AM EDT Oxygen Saturation 99% 10/03/2013 11:19 AM EDT Inhaled Oxygen Concentration - - Weight - - Height - - Body Mass Index - - documented in this encounter Discharge Instructions * Discharge Instructions* Omari Whitmore RN - 10/03/2013 11:21 AM EDT Colonoscopy and polyp removal What to expect after the procedure You may feel a little more gassy or bloated than usual, this is normal. You should expect the return of normal bowel function in the next 2 to 3 days. Because some polyps were removed, you may see a little blood with the next few bowel movements, this should be a small amount ( less than a few tablespoons) and will resolve on it's own. ACTIVITY Because of the sedation that you received Your judgement and reaction time are effected ?? Go home and rest for the remainder for the day. You may resume your normal activities tomorrow ?? Change from one position to the next slowly because you may lose your balance unexpectedly. ?? Be careful on stairs, as you may be unsteady. ?? Avoid strenuous activity for 48 to 72 hrs FOR THE NEXT 24 HRS ?? DO NOT DRIVE OR OPERATE MACHINERY ?? DO NOT DRINK ALCOHOLIC BEVERAGES ?? DO NOT SIGN LEGAL DOCUMENTS ?? If you are a smoker: DO NOT SMOKE WHILE YOU ARE ALONE Diet ?? Start by eating small portions of foods that ordinarily will not upset your stomach, avoid gas producing foods for the next few days. ?? Be gentle with what you choose to start with ?? A soft diet may be helpful for the next 3 days as this may help to keep your stools soft. ?? Drink plenty of fluids ( unless your doctor has told you not to). Medicines Avoid medicines that influence the way your blood clots for the next week. These would include anti-inflammatory medicine, such as ibuprofen( Advil, Motrin) and naproxen ( Aleve). If you need something for discomfort, Tylenol (Acetaminophen) is safe if used as directed. Your Doctor will tell you when to restart your prescribed blood thinners The IV site-- slight tenderness, or redness is normal, you can use warm compresses if you get concerned. If the tenderness +/or redness increases or foul drainage and a red streak occurs, please contact your PCP immediately. When should you call for help? Call 911 anytime you think you may need emergency care. For example If you pass out (loss of consciousness) If you pass maroon or bloody stools If you have severe belly pain Call your healthcare provider or seek immediate medical care if: Your stools are black or tar like Your stools have streaks of blood that is more pronounced with each BM You have belly pain, or your belly is swollen and firm You vomit You have a fever You are very dizzy Watch closely for changes in your health, and be sure to contact your doctor if you have any problems. Your Doctor will let you know when you will need your next colonoscopy. The results of your test and your risk for colorectal cancer will help your doctor decide how often you need to be checked. [facility] [phone] 8a-5p Same Day Endo [phone] 7a-8p Otherwise contact [phone] and ask to speak to the devulcanizer tender education program coordinator Follow up care is a luong part of your treatment and safety. Be sure to make and go to all appointments, and call your doctor if you are having problems. Discharge instructions reviewed with patient who expresses understanding UPPER GI ENDOSCOPY WHAT TO EXPECT AFTER THE PROCEDURE After the test you may feel a little more gassy or bloated than usual, this is normal. ACTIVITY Because of the sedation that you received Your judgement and reaction time are affected ?? Go home and rest quietly for the remainder of the day. You may resume your normal activities tomorrow. ?? Change from one position to the next slowly. You may lose your balance unexpectedly Be careful on stairs, as you may be unsteady on your feet. FOR THE NEXT 24 HRS ?? DO NOT DRIVE OR OPERATE ANY MACHINERY ?? DO NOT DRINK ALCOHOLIC BEVERAGES ?? DO NOT SIGN LEGAL DOCUMENTS ?? If you are a smoker: DO NOT SMOKE WHILE YOU ARE ALONE Diet ?? Start by eating small portions of foods that ordinarily will not upset your stomach. Be gentle with what you choose to start with. ?? Drink plenty of fluids ( unless otherwise told not to) Medications You may have a mild sore throat. Ice chips, popsicles, over the counter throat lozenges or spray may help numb your throat. This procedure should not cause a fever. IV SITE-- slight redness or tenderness is normal, you can use warm compresses if you get concerned.If the tenderness +/or redness increases or foul drainage and a red streak occurs, please contact your PCP immediately. WHEN SHOULD YOU CALL FOR HELP? Call 911 anytime you think that you need emergency care. For example, call if: You passed out (lost consciousness). You cough up blood. You vomit blood or what looks like coffee grounds. You pass maroon or very bloody stools. Call your healthcare provider or seek immediate medical attention if: You have trouble swallowing. You have belly pain. Your stools are black or tarlike or have streaks of blood. You are sick to your stomach or cannot keep fluids down. Watch closely for changes in your health, and be sure to contact your doctor IF Your throat still hurts after a day or two You do not get better as expected. Thursday[facility]Thursday Clinic [phone] 8a-5p Same Day Endo [phone] 7a-8p Otherwise contact [phone] and ask to speak to the devulcanizer tender education program coordinator Follow-up care is a luong part of your treatment and safety. Be sure to make and go to all appointments, and call your doctor if you are having problems. Instructions have been reviewed and patient expresses understanding documented in this encounter Medications at Time of Discharge Medication Sig Dispensed Refills Start Date End Date acetaminophen (TYLENOL) 325 mg tablet Take 650 mg by mouth every 4 hours as needed. documented as of this encounter H&P Notes * Criss Laguerre MD - 10/03/2013 10:02 AM EDT Gastroenterology and Hepatology Pre-Procedure History and Physical Exam Procedure: EGD/Colonoscopy +/- dilation Indication: early satiety, intermittent solid food dysphagia, change in bowel habits Patient Active Problem List Diagnosis Code ??? Change in bowel habits 787.99 EXAM: HEENT: Airway examined, oropharynx clear LUNGS: Clear to auscultation HEART: Regular rate and rhythm, normal S1, S2 ABDOMEN: Normal bowel sounds, soft, non tender, non distended, A/P Proceed with the planned endoscopic procedure. Risks and benefits of the procedure explained to the patient. Consent signed. documented in this encounter Miscellaneous Notes * Miscellaneous - Provider, Jose L - 10/03/2013 9:35 PM EDT * Miscellaneous - Provider, Scanning - 10/03/2013 3:14 PM EDT documented in this encounter Plan of Treatment Not on file documented as of this encounter Procedures Procedure Name Priority Date/Time Associated Diagnosis Comments SURGICAL PATHOLOGY REPORT Routine 10/03/2013 11:09 AM EDT SPECIMEN TO PATHOLOGY Routine 10/03/2013 11:09 AM EDT SPECIMEN TO PATHOLOGY Routine 10/03/2013 11:09 AM EDT SPECIMEN TO PATHOLOGY Routine 10/03/2013 11:09 AM EDT SPECIMEN TO PATHOLOGY Routine 10/03/2013 11:09 AM EDT SPECIMEN TO PATHOLOGY Routine 10/03/2013 11:09 AM EDT COLONOSCOPY, DIAGNOSTIC (WRVU 3.26) 10/03/2013 10:15 AM EDT Globus sensation EGD, UPPER GI ENDOSCOPY (WRVU 2.09) 10/03/2013 10:15 AM EDT Globus sensation COLONOSCOPY Routine 10/03/2013 10:09 AM EDT UPPER GI ENDOSCOPY Routine 10/03/2013 10 :08 AM EDT documented in this encounter Results * Surgical Pathology Report (10/03/2013 11:09 AM EDT) Final Diagnosis ? [facility] ? Provider: ?? CRISS LAGUERRE ?Pt. Name: ?? TETE JESSICA Brown ? Acc #: ?Pt. ? Col Date: ?? 10/03/2013 ?/Sex: ?1970,(43 years),Female ? Rec Date: ?? 10/03/2013 ?LOC: ?4T ? SURGICAL PATHOLOGY ? ---Pathologic Diagnosis--- ? A - Distal esophagus, biopsy: ? Esophageal squamous mucosa, negative for diagnostic abnormality. ? B - Mid esophagus, biopsy: ? Esophageal squamous mucosa, negative for diagnostic abnormality. ? C - Cecum, polypectomy: ? Colonic mucosa, negative for diagnostic abnormality. ? Multiple deeper levels examined. ? D - Colon at 34 cm, biopsy: ? Colonic mucosa, negative for diagnostic abnormality. ? Multiple deeper levels examined. ? E - Sigmoid colon, polypectomy: ? Colonic mucosa, negative for diagnostic abnormality. ? Multiple deeper levels examined. ? CR-0, CR-PX ? 10/06/13 ? [facility] ? 10/07/13 Verified by: ? Adan Kelly MD ? Pathologist ? (Electronic Signature) ? The attending pathologist whose signature appears on this report has ? reviewed all diagnostic slides and has edited the gross and/or ? microscopic portion of the report in rendering the final pathologic ? diagnosis. ? ---Gross Description--- ? A - Labeled/Fixativ e: Distal esophagus rule out EOE, formalin. ? Quantity/Size: Four, averaging 0.2 cm. ? Tissue Description: Soft, duron-pink tissue. ? Sections/Proces sing: (T1) ? B - Labeled/Fixativ e: Mid esophagus rule out EOE, formalin. ? Quantity/Size: Three, averaging 0.2 cm. ? Tissue Description: Soft, yellow-duron tissue. ? Sections/Proces sing: (T1) ? C - Labeled/Fixativ e: Cecal polyp, formalin. ? [facility] ? Provider: ?? CRISS LAGUERRE ?Pt. Name: ?? TETE JESSICA Brown ? Acc #: ?Pt. ? Col Date: ?? 10/03/2013 ?/Sex: ?1970,(43 years),Female ? Rec Date: ?? 10/03/2013 ?LOC: ?4T ? SURGICAL PATHOLOGY ? Quantity/Size: Single, 0.4 cm. ? Tissue Description: Soft, yellow-duron tissue. ? Sections/Proces sing: (T1) ? D - Labeled/Fixativ e: Flat lesion,? Fold versus polyp at 34 cm, formalin. ? Quantity/Size: Single, 0.3 cm. ? Tissue Description: Soft, duron-pink tissue. ? Sections/Proces sing: (T1) ? E - Labeled/Fixativ e: Sigmoid polyp, formalin. ? Quantity/Size: Two, 0.2 and 0.3 cm. ? Tissue Description: Soft, yellow-duron tissue. ? Sections/Proces sing: (T1) ??ejr ??ejr ? ---Clinical Information--- ? Specimen Submitted: ? A - Distal esoph, r/o eoe ? B - Mid esoph, r/o eoe ? C - Cecal polyp ? D - Flat lesion, ? fold vs polyp at 34 ? E - Sigmoid polyp ? Clinical History: ? Dysphagia, polyps ? Clinical Diagnosis: ? Same 10/07/2013 9:47 AM EDT [facility] GI Biopsy 10/03/2013 11:0 9 AM EDT 10/03/2013 11:09 AM EDT GI Biopsy 10/03/2013 11:0 9 AM EDT 10/03/2013 11:09 AM EDT GI Biopsy 10/03/2013 11:0 9 AM EDT 10/03/2013 11:09 AM EDT GI Biopsy 10/03/2013 11:0 9 AM EDT 10/03/2013 11:09 AM EDT GI Biopsy 10/03/2013 11:0 9 AM EDT 10/03/2013 11:09 AM EDT Criss Laguerre MD PATHOLOGY/CYTOLOGY O SKYLA Performing Organization Address [facility]/ZIP Co de Phone Number [facility] [place] [address] * Specimen to Pathology (surgical or derm) (10/03/2013 11:09 AM EDT) AP Specimen 10/03/2013 11:0 9 AM EDT 10/03/2013 11:09 AM EDT Narrative MARITA GUNTER - 10/03/2013 11:09 AM EDT Specimen requisition ordered. ??Separate Pathology report to follow Criss Lgauerre MD PATHOLOGY/CYTOLOGY O [place]Y[facility] * Specimen to Pathology (surgical or derm) (10/03/2013 11:09 AM EDT) AP Specimen 10/03/2013 11:0 9 AM EDT 10/03/2013 11:09 AM EDT Narrative MARITA GUNTER - 10/03/2013 11:09 AM EDT Specimen requisition ordered. ??Separate Pathology report to follow Criss Laguerre MD PATHOLOGY/CYTOLOGY O SKYLA MARITA GUNTER * Specimen to Pathology (surgical or derm) (10/03/2013 11:09 AM EDT) AP Specimen 10/03/2013 11:0 9 AM EDT 10/03/2013 11:09 AM EDT Narrative MARITA ORTEGAIUM - 10/03/2013 11:09 AM EDT Specimen requisition ordered. ??Separate Pathology report to follow Criss Laguerre MD PATHOLOGY/CYTOLOGY O SKYLA Performing Organization Address [facility]/ZIP Co de Phone Number MARITA GUNTER * Specimen to Pathology (surgical or derm) (10/03/2013 11:09 AM EDT) AP Specimen 10/03/2013 11:0 9 AM EDT 10/03/2013 11:09 AM EDT Narrative MARITA GUNTER - 10/03/2013 11:09 AM EDT Specimen requisition ordered. ??Separate Pathology report to follow Criss Laguerre MD PATHOLOGY/CYTOLOGY O SKYLA Performing Organization Address [facility] Co de Phone Number MARITA GUNTER * Specimen to Pathology (surgical or derm) (10/03/2013 11:09 AM EDT) AP Specimen 10/03/2013 11:0 9 AM EDT 10/03/2013 11:09 AM EDT Narrative MARITA GUNTER - 10/03/2013 11:09 AM EDT Specimen requisition ordered. ??Separate Pathology report to follow Criss Laguerre MD PATHOLOGY/CYTOLOGY O SKYLA MARITA GUNTER * COLONOSCOPY (10/03/2013 10:09 AM EDT) COLONOSCOPY [facility] Endoscopy ___ Patient Name: Jessica Nagel ? Procedure Date: 10/03/2013 10:09 AM ? Date of : 1970 ? Age: 43 ? Order #: [id number] ? ___ Procedure: ? Colonoscopy Indications: ? Change in bowel habits Providers: ? Criss Laguerre MD, Betzy Whitmore, ? RN, Unruly Leavitt, Cargo Services Coordinator Referring : ?Criss Youssef MD, Elbert Mcdaniel MD Medicines: ? Fentanyl 75 micrograms IV, Midazolam ? 2 mg IV, Diphenhydramine 12.5 mg IV Complications: ? No immediate complications. ___ Procedure: ? Pre-Anesthesia Assessment: ? - Prior to the procedure, a History ? and Physical was performed, and ? patient medications, allergies and ? sensitivities were reviewed. The ? patient's tolerance of previous ? anesthesia was reviewed. ? - The risks and benefits of the ? procedure and the sedation options ? and risks were discussed with the ? patient. All questions were answered ? and informed consent was obtained. ? - ASA Grade Assessment: II - A ? patient with mild systemic disease. ? - The anesthesia plan was to use ? moderate sedation/analgesia ? (conscious sedation). ? The procedure, indications, benefits, ? risks and alternatives were explained ? to the patient. Specifically ? discussed were potential ? complications including, but not ? limited to, bleeding, perforation, ? infection, missing a cancer, and ? adverse medication reactions. The ? patient was placed in the left ? lateral decubitus position, and a ? digital rectal exam was performed. ? The Colonoscope was inserted in the ? anus and under direct visualization, ? advanced to the terminal ileum. ? Careful inspection was made as the ? colonoscope was withdrawn. The ? quality of the bowel preparation was ? good. The colonoscopy was performed ? without difficulty. The patient ? tolerated the procedure fairly well. ? Scope insertion time was 7 minutes. ? Scope withdrawal time was 17 minutes. ? Findings: ? The perianal and digital rectal examinations were ? normal. ? A sessile polyp was found in the cecum. The polyp was ? 3 mm in size. The polyp was removed with a cold ? snare. Resection and retrieval were complete. ? A sessile polyp was found in the sigmoid colon. The ? polyp was 2 mm in size. The polyp was removed with a ? cold biopsy forceps. Resection and retrieval were ? complete. ? A localized area of mildly different mucosa was found ? at 34 cm proximal to the anus. This was a flat patch ? about 1cm in size, possible mildly depressed. ? Attempted snare removal was unsuccessful and EMR was ? not attempted without knowing if real pathology was ? present. Biopsies were taken with a cold forceps for ? histology. ? Internal hemorrhoids were found during retroflexion ? and were small. ? The terminal ileum appeared normal. ? Impression: ?- One 3 mm polyp in the cecum. ? Resected and retrieved. ? - One 2 mm polyp in the sigmoid ? colon. Resected and retrieved. ? - Flat area of ? abnormal mucosa vs ? flat polyp at 34 cm. Biopsied. ? - Internal hemorrhoids. ? - The examined portion of the ileum ? was normal. Recommendation: ?- Discharge patient to home (via ? wheelchair). ? - Await pathology results. ? - Repeat colonoscopy for surveillance ? based on pathology results. ? _ Criss Laguerre MD 10/03/2013 11:23 AM Number of Addenda: 0 Note Initiated On: 10/03/2013 10:09 AM PROVATION 10/03/2013 10:0 9 AM EDT Criss Youssef MD GENERAL SURGICAL ORD ERABLES PROVATION * UPPER GI ENDOSCOPY (10/03/2013 10:08 AM EDT) Pathologist [facility] UPPER GI ENDOSCOPY [facility] Endoscopy Patient Name: Jessica Nagel ? Procedure Date: 10/03/2013 10:08 AM ? Date of : 1970 ? Age: 43 ? Order #: [id number] ? Procedure: ? Upper GI endoscopy Indications: ? Dysphagia Providers: ? Criss Laguerre MD, Betzy Whitmore, ? GARCIA, Unruly Leavitt, Cargo Services Coordinator Referring MD: ?Criss Youssef MD, Elbert Mcdaniel MD Medicines: ? Fentanyl 100 micrograms IV, Midazolam ? 2 mg IV, Diphenhydramine 12.5 mg IV Complications: ? No immediate complications. Procedure: ? Pre-Anesthesia Assessment: ? - Prior to the procedure, a History ? and Physical was performed, and ? patient medications, allergies and ? sensitivities were reviewed. The ? patient's tolerance of previous ? anesthesia was reviewed. ? - The risks and benefits of the ? procedure and the sedation options ? and risks were discussed with the ? patient. All questions were answered ? and informed consent was obtained. ? - ASA Grade Assessment: II - A ? patient with mild systemic disease. ? - The anesthesia plan was to use ? moderate sedation/analgesia ? (conscious sedation). ? The procedure, indications, benefits, ? risks and alternatives were explained ? to the patient. Specifically ? discussed were potential ? complications including, but not ? limited to, bleeding, perforation, ? infection, missing a cancer, and ? adverse medication reactions. The ? Endoscope was introduced through the ? mouth, and advanced to the second ? part of duodenum. The patient ? tolerated the procedure well. The ? upper GI endoscopy was accomplished ? without difficulty. The patient ? tolerated the procedure well. ? Findings: ? The examined esophagus was normal. This was biopsied ? with a cold forceps for evaluation of eosinophilic ? esophagitis. ? The Z-line was regular and was found 40 cm from the ? incisors. ? The entire examined stomach was normal. ? The examined duodenum was normal. ? Impression: ?- Normal esophagus. Biopsied. ? - Z-line regular, 40 cm from the ? incisors. ? - Normal stomach. ? - Normal examined duodenum. Recommendation: ?- Await pathology results. ? - Proceed with colonsocopy now. ? - Return to GI clinic as previously ? scheduled. ? __ Criss Laguerre MD 10/03/2013 10:31 AM Number of Addenda: 0 Note Initiated On: 10/03/2013 10:08 AM PROVATION 10/03/2013 10:0 8 AM EDT Criss Youssef MD GENERAL SURGICAL ORD ERABLES PROVATION documented in this encounter Visit Diagnoses Not on filedocumented in this encounter Administered Medications Inactive Administered Medications - up to 3 most recent administrations Medication Order MAR Action Action Date Dose Rate Site lactated ringers infusion 100 mL/hr, Intravenous, CONTINUOUS, Starting on Thu10/03/13 at 1030, Until Thu10/03/13 at 2037, Endoscopy (Day of Procedure) New Bag 10/03/2013 10:07 AM EDT 100 mL/hr 100 mL/hr documented in this encounter Active and Recently Administered Medications Times are shown in EDT. Continuous Medication Order 10/01/2013 10/02/2013 10/03/2013 lactated ringers infusion (CANCELED) 100 mL/hr, Intravenous, CONTINUOUS, Starting on Thu10/03/13 at 1030, Until Thu10/03/13 at 2037, Endoscopy (Day of Procedure) 1007 (New Bag - Prov ider: Vincent Finn RN) PRN Medication Order 10/01/2013 10/02/2013 10/03/2013 diphenhydrAMINE (BENADRYL) injection (CANCELED) ONCE PRN, Starting on Thu10/03/13 at 1020, Until Thu10/03/13 at 2037, Itching, Intra-Operative (Intra-Procedure), Routine 1020 (Given - Provid er: Betzy Whitmore RN)1037 (Given - Provider: Betzy Whitmore RN) fentaNYL 50mcg/mL injection (CANCELED) ONCE PRN, Starting on Thu10/03/13 at 1018, Until Thu10/03/13 at 2037, Pain, Intra-Operative (Intra-Procedure), Routine 1018 (Given - Provid er: Betzy Whitmore RN)1022 (Given - Provider: Betzy Whitmore RN)1034 (Given - Provider: Betzy Whitmore RN)1037 (Given - Provider: Betzy Whitmore RN) midazolam (PF) (VERSED) 1 mg/mL injection (CANCELED) ONCE PRN, Starting on Thu10/03/13 at 1018, Until 10/03/13 at 2038, Sleep, Intra-Operative (Intra-Procedure), Routine 1018 (Given - Provid er: Betzy Whitmore RN)1022 (Given - Provider: Betzy Whitmore RN)1034 (Given - Provider: Betzy Whitmore RN)1037 (Given - Provider: Betzy Whitmore RN)1057 (Given - Provider: Betzy Whitmore RN) documented in this encounter Care Teams Quality Inspector Relationship Specialty Start Date End Date Criss Youssef MD [address] [place] [address] PCP - General 09/01/13 documented as of this encounter
--- OUTSIDE RECORDS SUMMARY | 2024-01-18 12:35 | XMS_ITS | Encounter Summary ---
Author Organization [facility] Address [address] [place] [address] Care Team Providers Care Multiple Drum Sander Name Role Phone Unavailable Primary Care Provider Unavailabl e Encounter Details Date Type Department Care Team (Late st Contact Info) Description 06/05/2003 Results Only [facility] [address] [place] [address] Vladislav Lemon MD [address] [place] [address] Social History Tobacco Use Types [...] Date/Time Associated Diagnosis Comments SURGICAL PATHOLOGY Routine 06/05/2003 0:00 EST documented in this encounter Results * SURGICAL PATHOLOGY (06/05/2003 0:00 EST) Pathology Report: SURGICAL PATHOLOGY REPORT Reports generated via electronic interface contain original data; however they are lacking the format of the original report. Caution should be taken when reading/interpreti ng unformatted reports. Name: ? JESSICA EPSTEIN ? Accession #: ? [id number] ? : ? 1970 (Age: 33) ??F ? Collect Date: ? 06/05/2003 ? Location: ? [facility] ? Receive Date: ? 06/06/2003 ? Provider: VLADISLAV LEMON MD Copy to: LESLIE LUNA DO ? Final Pathologic Diagnosis: ? Ovary and fallopian tube, left, salpingo-oopherect airam: 1. ?Hemorrhagic corpus luteum cyst. 2. ?Benign paratubal cyst. Document reviewed and electronically signed by: Leopoldo Tran MD Report ??Date: 06/08/2003 16:48 By the signature above, the attending physician certifies that he/she has personally conducted a gross and/or microscopic examination of the described specimens and rendered or confirmed the above diagnosis. Specimen(s) Received: ? Left ovary Clinical History: ? Recurrent pelvic pain with previous lap surgery and LAVH/RSO Gross Description: ? Received in formalin labelled Robe and left ovary is a duron-yellow cerebriform irregular ovary which measures approximately 4.2 x 3.1 x 1.4 cm. Emanating from the central portion of the ovary to the external surface is a 2.2 x 1.9 x 1.4 cm blue-leija slightly rubbery cyst which has been incised on one end and contains dark red to brown hemorrhagic material. ??The attached duron-leija, smooth and shiny fallopian tube measures 2.1 cm in length by 0.5 cm in diameter. There is a clear 0.3 cm paratubal cyst which measures 0.3 cm from the fimbriated end. ??Sectioning through the fallopian tube reveals a white fallopian tube wall with a centrally located 0.2 cm lumen. ??Sectioning through the ovary reveals the previously mentioned hemorrhagic cyst along with a single orange 0.6 x 0.5 x 0.3 cm corpus luteum. ??Programming Equipment Operator sections are submitted as follows: BLOCK VELAZQUEZ A1 ?Fallopian tube and adjacent paratubal cyst A2 ?Programming Equipment Operator hemorrhagic cyst with adjacent ovary A3 ?Additional security representative section hemorrhagic cyst (Dr. Wu-SULEIMAN)/[facility] End of Report SASKIA SANCHEZ 06/05/2003 06/06/2003 15: 32 EST Vladislav Lemon MD PATHOLOGY ORDERABLES Performing Organization Address City/State/[facility] Co de Phone Number SASKIA SANCHEZ [address] [place] [address] documented in this encounter Visit Diagnoses Not on filedocumented in this encounter
--- OUTSIDE RECORDS SUMMARY | 2024-01-18 12:35 | XMS_ITS | Encounter Summary ---
Author Organization [facility] [place] [address] Care Team Providers Care Car Sealer Name Role Phone Long Youssef MD Primary Care Provider [phone] Reason for Referral * Consultation (Routine) - Closed Specialty Diagnoses / Procedures Referred By Irving emery Referred To Contact Otolaryngology Diagnoses Globus sensation Elbert Mcdaniel APRN [facility] GASTROENTER[place] [address] [facility] [address] [place] [id number] Referral ID Status Reason Start Date Expiration Date V isits Requested Visits Authorized [id number] Closed Consult, Test & Treat 09/05/2013 03/04/2014 1 1 Reason for Visit * Reason Comments GI Problem Encounter Details Date Type Department Care Team (Late st Contact Info) Description 09/05/2013 8:00 AM EDT Office Visit [place] [id number] Elbert Mcdaniel [facility] GASTROENTEROLOG[place] [address] Change in bowel habits; Abdominal pain, periumbilical; Globus sensation Discharge Disposition: Home Social History Tobacco Use Types Packs/Day Years Used Date Smoking Tobacco: Never Assessed Sex and Gender Information Value Date Recorded Sex Assigned at Not on file Gender Identity Not on file Sexual Orientation Not on file documented as of this encounter Last Filed Vital Signs Vital Sign Reading Time Taken Comments Blood Pressure 110/66 09/05/2013 8:03 AM EDT Pulse 74 09/05/2013 8:03 AM EDT Temperature - - Respiratory Rate - - Oxygen Saturation 99% 09/05/2013 8:03 AM EDT Inhaled Oxygen Concentration - - Weight 51.7 kg (114 lb) 09/05/2013 8:03 AM EDT Height 160 cm (5' 3) 09/05/2013 8:03 AM EDT Body Mass Index 20.19 09/05/2013 8:03 AM EDT documented in this encounter Progress Notes * Elbert Mcdaniel, RN - 09/05/2013 8:24 AM EDT Section of Gastroenterology and Hepatology [address] [place], [place] [id number] .Christiana Fullers : 1970 Patient is here for further evaluation of gastrointestinal symptoms at the request of Madeline Fairbanks APRN. HPI: Pt has had a change in bowel habits. She feels like stool becomes hung up. Also, gives a sensation that there is an air bubble, like someone squeezes a balloon that bulges. Also, feels a stretch, like you stepped on gum and pull up on shoe and the gum stretches. She feels it may be due to adhesions. She had a hysterectomy at the age of 28. Then after this surgery she had 5 more surgeries to remove adhesions. The procedures were done at [facility]. These sensations are located around the umbilical area. When she passes flatus it is like passing a large air bubble. Stools can be dark, leija, duron. Shape, size can vary. Can be S shaped. Has a bowel movement every two days. This is her normal. No fecalincontinence, anal pain. Does have mid to lower abdominal pain, constant, has the gum effect. this stretching sensation.Does try abdominal massage to help with movement and pain. Uses camomille tea and peppermint with some relief. Denies significant gas, bloat, distention. when I eat my belly does not move. There is no sound/gurgle. Colonoscopy 10 years ago, per pt, and had polyps. Weight fluctuates, this is her normal. No food allergies. No laxative use. No chronic nsaids. No reflux at this time. Did have a hx when she was drinking. since giving up drinking I have not had reflux. At times feels like food sticks in her throat and then feels it releases and passes along the right side. Hx of seasonal allergies. At times globus sensation. No sinus hx. No odynophagia. No vomiting. No sore throats, hoarseness. Intermittent nausea. Seems to be worse when feeling backed up. Nausea improves once able to move bowels. Reviewed diet. Eat when I am hungry. I can go a few days without eating, due to sx. She will then smoke cannibus, which is every couple of days, this will allow her stomach to move, make noise and have a bowel movement. Also, she will begin to feel hungry and will eat. History Social History ??? Marital Status: Single Spouse Name: N/A Number of Children: N/A ??? Years of Education: N/A Occupational History ??? Not on file. Social History Main Topics ??? Smoking status: Not on file ??? Smokeless tobacco: Not on file ??? Alcohol Use: Not on file ??? Drug Use: Not on file ??? Sexually Active: Not on file Other Topics Concern ??? Not on file Social History Narrative ??? No narrative on file Medical History: hx endometriosis Surgical History: hysterectomy, removal of adhesions x 5 Family History: father: hepatitis C Allergies Allergen Reactions ??? Demerol (Meperidine) Other (See Comments) ??? Codeine Phosphate ??? Meperidine Hcl ??? Penicillins Current outpatient prescriptions:acetaminophen (TYLENOL) 325 mg tablet, Take 650 mg by mouth every 4 hours as needed., Disp: , Rfl: ; [DISCONTINUED] traZODone (DESYREL) 100 mg tablet, , Disp: , Rfl: ; [DISCONTINUED] traMADol (ULTRAM) 50 mg tablet, 50MG = 1 Tablet(s), PO, Three times daily, Disp: , Rfl: Review of Systems - Negative except General: Cardiac: Resp: GI: see above : MS: Neuro: Skin: Psyche: Sleep: Endo: Physical Exam: soft, tender in mid abdomen, pin point area, right of umbilicus, hard bulge, painfulwith palpation Impression: 1. Change in bowel habits: pt is concerned for an intermittent obstructive process. Hx of colonic polyps per pt. Schedule mre and colonoscopy. May need to consider surgical referral. 2. Globus sensation: ?etiology. Refer to ent. Given hx of reflux, schedule upper endoscopy to be done at same time as colonoscopy. 3. F/u with pt once results available. I spent a total of 52 minutes face to face with this patient; 31 minutes were spent counseling the patient in the medical problems described above. Sincerely, Elbert Mcdaniel NP Section of Gastroenterology and Hepatology documented in this encounter Plan of Treatment Scheduled Orders Name Type Priority Associated Diagnoses Orde r Schedule UPPER GI ENDOSCOPY Procedures Routine Globus sensation Ordered: 09/05/2013 Scheduled Referrals Name Type Priority Associated Diagnoses Orde r Schedule Referral to ENT Outpatient Referral Routine Globus sensation Ordered: 09/05/2013 documented as of this encounter Visit Diagnoses Diagnosis Change in bowel habits Other symptoms involving digestive system Abdominal pain, periumbilical Abdominal pain, periumbilic Globus sensation Gastrointestinal malfunction arising from mental factors documented in this encounter Care Teams Car Sealer Relationship Specialty Start Date End Date Long Yosusef MD [address] [address] PCP - General 09/01/13 documented as of this encounter
--- OUTSIDE RECORDS SUMMARY | 2024-01-18 12:35 | XMS_ITS | Encounter Summary ---
Author Organization [facility] Address [address] [place] [address] Care Team Providers Care Kitchen Manager Name Role Phone Unavailable Primary Care Provider Unavailabl e Encounter Details Date Type Department Care Team (Late st Contact Info) Description 07/15/2002 Results Only [facility] - Maple conversion [address] [place] [address] Julia Branch, [facility] [address] [place] [address] [place] [address] Social History Tobacco Use Types Packs/Day Years Used Date Smoking Tobacco: Never Assessed Sex and Gender Information Value Date Recorded Sex Assigned at Not on file Gender Identity Not on file Sexual Orientation Not on file documented as of this encounter Plan of Treatment Not on file documented as of this encounter Procedures Procedure Name Priority Date/Time Associated Diagnosis Comments CYTOPATHOLOGY Routine 07/15/2002 0:00 EST documented in this encounter Results * CYTOPATHOLOGY (07/15/2002 0:00 EST) Pathology Report: CYTOPATHOLOGY REPORT Reports generated via electronic interface contain original data; however they are lacking the format of the original report. Caution should be taken when reading/interpreti ng unformatted reports. Name: ? JESSICA EPSTEIN ? Accession #: ? [id number] : ? 1970 (Age: 32) ??F ?Collect Date: ? 07/15/2002 Location: ? [facility] ? Receive Date: ? 07/18/2002 Provider: ?JULIA BRANCH ACID CONCENTRATOR Copy to: ? Specimen/Source: ?ThinPrep Pap Test, Vagina Last Menstrual Period: ? Treatment History: ? Hysterectomy: partial, 08/03 ? SPECIMEN ADEQUACY ? Satisfactory for Evaluation - assessment of transformation zone component not applicable ( e.g. atrophy, vaginal sample, hysterectomy) GENERAL CATEGORIZATION ? Negative for Intraepithelial Lesion or Malignancy INTERPRETATION ? Fungal organisms present morphologically consistent with Ana species. ? Document reviewed and electronically signed by: ? Dionne Braga, SCT(ASCP) ? Report Date: ??07/19/2002 14:38 End of Report SASKIA SANCHEZ 07/15/2002 07/18/2002 Julia Branch ACID CONCENTRATOR PATHOLOGY ORDERABLES Performing Organization Address City/State/[facility] Co de Phone Number SASKIA SANCHEZ [address] [place] [address] documented in this encounter Visit Diagnoses Not on filedocumented in this encounter
--- OUTSIDE RECORDS SUMMARY | 2024-01-18 12:35 | XMS_ITS | Encounter Summary ---
Author Organization [facility] Address [address] [place] [address] Care Team Providers Care Director Game Name Role Phone Unavailable Primary Care Provider Unavailabl e Encounter Details Date Type Department Care Team (Late st Contact Info) Description 08/31/2012 Results Only [facility] Laboratory Services - [facility] ([facility]) [address] [place], [place] [phone] Murphy Vargas, DO [address] [facility] [address] [place], [place] [id number] Social History Tobacco Use Types Packs/Day Years Used Date Smoking Tobacco: Never Assessed Sex and Gender Information Value Date Recorded Sex Assigned at Not on file Gender Identity Not on file Sexual Orientation Not on file documented as of this encounter Plan of Treatment Not on file documented as of this encounter Procedures Procedure Name Priority Date/Time Associated Diagnosis Comments SURGICAL PATHOLOGY Routine 08/31/2012 9:00 EDT documented in this encounter Results * SURGICAL PATHOLOGY (08/31/2012 9:00 EDT) Pathology Report: SURGICAL PATHOLOGY REPORT Reports generated via electronic interface contain original data; however they are lacking the format of the original report. Caution should be taken when reading/interpretin g unformatted reports. Name: ? JESSICA EPSTEIN ? Accession #: ? [id number] ? : ? 1970 (Age: 42) ??F ? Collect Date: ? 08/31/2012 ? Location: ? [facility] ? Receive Date: ? 09/01/2012 ? Provider: MURPHY VARGAS DO Copy to: LESLIE LUNA DO ? Final Pathologic Diagnosis: A. ?Stomach, antrum, biopsies: ?1. ??Antral-type mucosa with no specific pathologic features. B. ?? Esophagus, distal, biopsies: ? 1. ??Histologic features of gastroesophageal reflux disease. ??See comment. C. ?? Esophagus, mid, biopsies: ? 1. ??Squamous mucosa with mild reactive changes and rare intraepithelial eosinophil. ??See ?comment. D. ?? Esophagus, proximal, biopsies: ? 1. ??Squamous-lined mucosa with no specific pathologic features. Comment: ? Histologic sections of the distal esophagus demonstrate squamous mucosa with a thickened basal layer, elongation of papillae with vascular pooling, chronic inflammation, and rare intraepithelial eosinophils. ??The mid esophagus (specimen C) demonstrates a lesser degree of reactive features, yet a rare intraepithelial eosinophil is identified. ??Overall, the findings are interpreted as gastroesophageal reflux disease; however, proper clinical and endoscopic correlation is advised. ??(Dr. Wu)/[facility] Document reviewed and electronically signed by: VIKKI WU MD Report ??Date: 09/02/2012 16:27 By the signature above, the attending physician certifies that he/she has personally conducted a gross and/or microscopic examination of the described specimens and rendered or confirmed the above diagnosis. Specimen(s) Received: A. ?Bx antrum B. ? Distal esophagus C. ? Mid esophagus D. ? Proximal esophagus Clinical History: ? Dysphagia; normal appearing EGD Gross Description: ? Received in formalin labelled Jessica Epstein and #1 bx antrum is a 0.3 x 0.3 x 0.2 cm light duron biopsy. ??The specimen is submitted intact as (A1). Received in formalin labelled Jessica Epstein and #2 distal esophagus are two pink-white biopsies measuring 0.3 x 0.2 x 0.1 cm and 0.6 x 0.2 x 0.1 cm. ??The specimens are submitted intact as (B1). Received in formalin labelled Robe, Jessica and #3 mid esophagus are two pink-white biopsies, each measuring 0.2 x 0.2 x 0.1 cm. ??The specimens are submitted intact as (C1). Received in formalin labelled Jessica Epstein and #4 proximal esophagus are two duron-white biopsies measuring 0.2 x 0.2 x 0.1 cm and 0.4 x 0.3 x 0.1 cm. ??The specimens are submitted intact as (D1). ??(HESHAM Noe)/yuliya End of Report SASKIA SANCHEZ 08/31/2012 9:00 EDT 09/01/2012 9:00 EDT Murphy Vargas DO PATHOLOGY ORDER SYEDA SASKIA SANCHEZ [address] [place] [address] documented in this encounter Visit Diagnoses Not on filedocumented in this encounter
--- OUTSIDE RECORDS SUMMARY | 2024-01-18 12:35 | XMS_ITS | Encounter Summary ---
Author Organization [facility] [place] [address] Care Team Providers Care Master Automotive Glass Technician Name Role Phone Criss Jernigan MD Primary Care Provider [phone] Reason for Visit * Reason Comments Dysphagia Encounter Details Date Type Department Care Team (Late st Contact Info) Description 10/05/2013 9:15 AM EDT Office [place] [address] Raisa Vargas APRN [facility] [place] [address] Chronic rhinitis (Primary Dx) Discharge Disposition: Home Social History Tobacco Use Types Packs/Day Years Used Date Smoking Tobacco: Every Day Cigarettes Smokeless Tobacco: Never Sex and Gender Information Value Date Recorded Sex Assigned at Not on file Gender Identity Not on file Sexual Orientation Not on file documented as of this encounter Last Filed Vital Signs Vital Sign Reading Time Taken Comments Blood Pressure 119/65 10/05/2013 9:30 AM EDT Pulse 60 10/05/2013 9:30 AM EDT Temperature - - Respiratory Rate - - Oxygen Saturation - - Inhaled Oxygen Concentration - - Weight 51.3 kg (113 lb) 10/05/2013 9:30 AM EDT Height 160 cm (5' 3) 10/05/2013 9:30 AM EDT Body Mass Index 20.02 10/05/2013 9:30 AM EDT documented in this encounter Progress Notes * Raisa Vargas APRN - 10/05/2013 9:28 AM EDT Otolaryngology Outpatient Consultation Note Date of Visit: 10/05/2013 Location of Visit: Otolaryngology Clinic, [facility] Patient: Christiana Nagel ([id number] ; 1970 Primary Care Provider: CRISS JERNIGAN MD Referring Provider: Elbert Mcdaniel Reason for Visit: Christiana is a 43 y.o. female with c/o globus sensation seen at the request of Elbert Mcdaniel. History of Present Illness: Christiana presents with c/o globus sensation with some dysphagia x many years. She has had esophageal dilatation x 2 over 8 years ago. She recently had endoscopy and colonoscopy. No significant findings with the endoscopy. She is being followed by Elbert Mcdaniel in gastroenterology. She does have a history of reflux but has not had anything recently and symptoms. The refluxresolved when she stopped drinking alcohol. She's not taking any medication for reflux. She feels some drainage along the right side of her throat was pressure at times. She also feels discomfort along the right ear. She has recently had a right ear infection. No history of sinus issues. No chronic history of ear infections. She does smoke one pack a day for 30 years. She is trying to quit.She does have a hx of seasonal allergies. No hearing loss issues. Past Medical History: Other then above, see list. Past Surgical History: Past Surgical History Procedure Date ??? Upper gi endoscopy, diagnostic 10/03/2013 EGD, UPPER GI ENDOSCOPY performed by Criss Laguerre MD at [facility] ENDOSCOPY ??? Colonoscopy, diagnostic 10/03/2013 COLONOSCOPY, DIAGNOSTIC performed by Criss Laguerre MD at [facility] ENDOSCOPY Medications: Current Outpatient Prescriptions on File Prior to Visit Medication Sig Dispense Refill ??? acetaminophen (TYLENOL) 325 mg tablet Take 650 mg by mouth every 4 hours as needed. Allergies: Demerol; Codeine phosphate; Meperidine hcl; and Penicillins Social History: Christiana Nagel lives [place] [facility] [id number] . She does smoke 1 pack/day x 30 years. Family History: Mother with a hx of diabetes. Review of Systems: Pertinent positive findings discussed above. No other findings on review of constitutional, visual, cardiovascular, respiratory, gastrointestinal, genitourinary, musculoskeletal, dermatologic, neurological, psychiatric, endocrine, hematologic or immunologic systems. Physical Examination: Vitals: Last menstrual period 09/05/1996. General: A pleasant 43 y.o. In no acute distress. Face: Full and symmetric facial movement. No dysmorphic facial features. Ears: Auricles symmetric without lesions. External auditory canals clear. Right tympanic membrane clear. right middle ear well aerated. Left tympanic membrane clear. left middle ear well aerated. Nose: Patent anteriorly with adequate airflow, Mucosa with clear mucus. Septum is midline without significant deviation. Inferior turbinates wnl Mouth: Lips and gingiva pink, moist, without lesions. Age-appropriate dentition healthy. Tongue andfloor of mouth soft without lesions or masses. Hard palate without lesions. Pharynx: Soft palate without lesions. Uvula is intact without evidence of submucus cleft palate. Oropharynx symmetric. Neck: Soft, supple, without significant lymphadenopathy. Thyroid gland without masses or asymmetry.Trachea midline without deviation. Lungs: Clear to auscultation bilaterally without wheezes. Heart: Regular rate and rhythm without murmur. Procedure - Flexible Fiberoptic Laryngoscopy: Topical anesthetic applied to the nasal cavity. Patient tolerated the procedure well without complication. Findings: Nasal Cavity: clear mucus, no masses Nasopharynx: Clear mucus, no masses Oropharynx: wnl Larynx: Vocal cords mobile and symmetric. Arytenoid folds with mild erythema and edema. No masses. Hypopharynx: wnl Impression: 1) Rhinitis with ? reflux Recommendations: I did recommend the use of a nasal rinse with Flonase as described. I do feel she may have some reflux issues. I gave her an education sheet on diet awareness in changes. I've asked her to followup with gastroenterology for further discussion for reflux. I did encourage her to stop smoking. Return to the clinic as needed. Raisa RAY [place], [place] [address] Office documented in this encounter Plan of Treatment Not on file documented as of this encounter Visit Diagnoses Diagnosis Chronic rhinitis- Primary documented in this encounter Care Teams Master Automotive Glass Technician Relationship Specialty Start Date End Date Criss Jernigan MD [address] [place] [address] [address] [facility] [address] [place] [address] PCP - General 09/01/13 documented as of this encounter
--- OUTSIDE RECORDS SUMMARY | 2024-01-18 12:35 | XMS_ITS | Encounter Summary ---
Author Organization [facility] [address] Care Team Providers Care Volleyball Player Name Role Phone Long Youssef MD Primary Care Provider [phone] Encounter Details Date Type Department Care Team (Late st Contact Info) Description 09/05/2013 [place] [address] Monty Bowman MD [facility] DR [place] [address] Social History Tobacco Use Types Packs/Day Years Used Date Smoking Tobacco: Never Assessed Sex and Gender Information Value Date Recorded Sex Assigned at Not on file Gender Identity Not on file Sexual Orientation Not on file documented as of this encounter Plan of Treatment Not on file documented as of this encounter Visit Diagnoses Not on filedocumented in this encounter Care Teams Volleyball Player Relationship Specialty Start Date End Date Long Youssef MD [address] [place] [address] PCP - General 09/01/13 documented as of this encounter
--- OUTSIDE RECORDS SUMMARY | 2024-01-18 12:35 | XMS_ITS | Encounter Summary ---
Author Organization [facility] Address [address] [place] [address] Care Team Providers Care Digital Project Coordinator Name Role Phone Unavailable Primary Care Provider Unavailabl e Encounter Details Date Type Department Care Team (Latest Contact Info) Description 03/24/2005 16:11 EST Hospital Encounter [facility] Emergency Department - Main [place] [address] [place] [address] Emergency, Default, MD Discharge Disposition: Home or Self Care Social History Tobacco Use Types Packs/Day Years Used Date Smoking Tobacco: Never Assessed Sex and Gender Information Value Date Recorded Sex Assigned at Not on file Gender Identity Not on file Sexual Orientation Not on file documented as of this encounter Discharge Disposition Disposition Code Departure Means Destination Home or Self Care documented in this encounter Plan of Treatment Not on file documented as of this encounter Visit Diagnoses Not on filedocumented in this encounter
--- OUTSIDE RECORDS SUMMARY | 2024-01-18 12:35 | XMS_ITS | Encounter Summary ---
Author Organization [facility] Address [address] [place] [address] Care Team Providers Care Market Research Senior Project Manager Name Role Phone Unavailable Primary Care Provider Unavailabl e Encounter Details Date Type Department Care Team (Late st Contact Info) Description 06/09/2000 Results Only [facility] - Maple conversion [address] [place] [address] Julia Branch, [facility] [address] [place] [address] [place] [address] Social History Tobacco Use Types [...] Priority Date/Time Associated Diagnosis Comments CYTOPATHOLOGY Routine 06/09/2000 0:00 EST documented in this encounter Results * CYTOPATHOLOGY (06/09/2000 0:00 EST) Pathology Report: CYTOPATHOLOGY REPORT Reports generated via electronic interface contain original data; however they are lacking the format of the original report. Caution should be taken when reading/interpreti ng unformatted reports. Name: ? JESSICA EPSTEIN ? Accession #: ? [id number] : ? 1970 (Age: 30) ??F ?Collect Date: ? 06/09/2000 Location: ? [facility] ? Receive Date: ? 06/10/2000 Provider: ?JULIA BRANCH DOMESTIC MAID Copy to: ? Specimen/Source: ?ThinPrep Pap Test, Cervix/Endocervix Last Menstrual Period: ? 05/18/00 Previous Gynecologic Pathology: ? Benign cellular changes: Treatment History: ? Cryotherapy: 1992, WNL since. ? SPECIMEN ADEQUACY ? Satisfactory for evaluation. GENERAL CATEGORIZATION ? Within Normal Limits ? Document reviewed and electronically signed by: ? AMADOU Hernandez(ASCP) ? Report Date: ??06/10/2000 12:46 End of Report SASKIA SANCHEZ 06/09/2000 06/10/2000 Julia Branch DOMESTIC MAID PATHOLOGY ORDERABLES SASKIA SANCHEZ [address] [place] [address] documented in this encounter Visit Diagnoses Not on filedocumented in this encounter
--- OUTSIDE RECORDS SUMMARY | 2024-01-18 12:35 | XMS_ITS | Encounter Summary ---
Author Organization [facility] Address [address] [place] [address] Care Team Providers Care Sports Statistician Name Role Phone Unavailable Primary Care Provider Unavailabl e Encounter Details Date Type Department Care Team (Late st Contact Info) Description 05/31/1999 Results Only [facility] - Maple conversion [address] [place] [address] Julia Branch, [facility] [address] [place] [address] [place] [address] Social History Tobacco Use Types [...] Priority Date/Time Associated Diagnosis Comments CYTOPATHOLOGY Routine 05/31/1999 10:41 EST documented in this encounter Results * CYTOPATHOLOGY (05/31/1999 10:41 EST) Pathology Report: CYTOPATHOLOGY REPORT Reports generated via electronic interface contain original data; however they are lacking the format of the original report. Caution should be taken when reading/interpreti ng unformatted reports. Name: ? JESSICA EPSTEIN ? Accession #: ? [id number] : ? 1970 (Age: 29) ??F ?Collect Date: ? 05/31/1999 Location: ?Receive Date: ? 05/31/1999 Provider: ?JULIA ROSEMARY MACHINE SORTER Copy to: ?JULIA ROSEMARY MACHINE SORTER ? Specimen/Source: ?Destination Coordinator ThinPrep Last Menstrual Period: ? GYNECOLOGIC ??CYTOPATHOLOGY ??REPORT Name: TETEJESSICA KENYON ? [facility] : 1970 ?? 29Y F ?Client ID: [id number] SS#: ? Clinician: ROSEMARY MACHINE SORTER, JULIA ?? Location: [facility] ??Copy to: ?? Specimen: ?Destination Coordinator ThinPrep ? Source: Cervix/Endocervix ?Collected: 05/29/99 ? Received: 05/31/1999 ?LMP: 05/10/99 ? Hormone Therapy: No ? : No ? Radiation Therapy: No ?? Post : No ?Chemotherapy: No ?IUD: No ? Prev Abnormal Pap: Yes ?? Clinical Hx: benign cellular changes. Abn. pap 1992, cryo ? done. NL since. ?(Blank robles indicate information not provided on requisition) SPECIMEN ADEQUACY: ? Satisfactory For Evaluation ?? GENERAL CATEGORIZATION: ? WITHIN NORMAL LIMITS ? Reviewed And Electronically Signed By: ? Ana Lilia Navarrete, CT(ASCP) ? Ninfa Puentes, CT(ASCP) ? Report Date: ?? 05/31/1999 [facility] Archived Tests - Final Diagnosis Text Field: Clinical History : ; benign cellular changes. Abn. pap 1992, cryo done. NL since. ? Document reviewed and electronically signed by: ? Conversion ? Report Date: ??05/31/1999 00:00 End of Report SASKIA SANCHEZ 05/31/1999 10:4 1 EST 05/31/1999 10:42 EST Julia Branch MACHINE SORTER PATHOLOGY ORDERABLES Performing Organization Address City/State/[facility] Co de Phone Number [facility] [address] [place] [address] documented in this encounter Visit Diagnoses Not on filedocumented in this encounter
--- OUTSIDE RECORDS SUMMARY | 2024-01-18 12:35 | XMS_ITS | Encounter Summary ---
Author Organization [facility] Address [facility] [place] [address] Care Team Providers Care Glassware Selector Name Role Phone Criss Youssef MD Primary Care Provider [phone] Encounter Details Date Type Department Care Team (Late st Contact Info) Description 10/03/2013 11:00 AM EDT - 10/03/2013 12:00 PM EDT [place] [address] Criss Laguerre MD [facility] [place] [address] EGD, UPPER GI ENDOSCOPY (WRVU 2.09) Social History Tobacco Use Types Packs/Day Years [...] you need to be checked. Thursday-Thursday Clinic [phone] 8a-5p Same Day Endo [phone] 7a-8p Otherwise contact [phone] and ask to speak to the syruper cooperative education coordinator Follow up care is a luong [...] not get better as expected. Thursday-Thursday Clinic [phone] 8a-5p Same Day Endo [phone] 7a-8p Otherwise contact [phone] and ask to speak to the syruper cooperative education coordinator Follow-up care is a luong part [...] encounter Miscellaneous Notes * Miscellaneous - Provider, Scanning - 10/03/2013 9:35 PM EDT * Miscellaneous [...] (10/03/2013 11:09 AM EDT) Final Diagnosis ? [facility] ? Provider: ?? CRISS LAGUERRE ?Pt. Name: ?? JESSICA EPSTEIN ? Acc #: ?Pt. ? Col Date: [...] - Labeled/Fixativ e: Cecal polyp, formalin. ? [facility] ? Provider: ?? CRISS LAGUERRE ?Pt. Name: ?? JESSICA EPSTEIN ? Acc #: ?Pt. ? Col Date: [...] MD PATHOLOGY/CYTOLOGY O SKYLA Performing Organization Address [facility] Co de Phone Number [facility] [place] [address] * Specimen to Pathology (surgical or derm) (10/03/2013 11:09 AM EDT) AP Specimen 10/03/2013 11:0 9 AM EDT 10/03/2013 11:09 AM EDT Narrative MARITA GUNTER - 10/03/2013 11:09 AM EDT Specimen requisition ordered. ??Separate Pathology report to follow Criss Laguerre MD PATHOLOGY/CYTOLOGY O SKYLA Performing Organization Address [facility] Co de Phone Number MARITA GUNTER * Specimen to Pathology (surgical or derm) (10/03/2013 11:09 AM EDT) AP Specimen 10/03/2013 11:0 9 AM EDT 10/03/2013 11:09 AM EDT Narrative MARITA GUNTER - 10/03/2013 11:09 AM EDT Specimen requisition ordered. ??Separate Pathology report to follow Criss Laguerre MD PATHOLOGY/CYTOLOGY O SKYAL Performing Organization Address [facility] Co de Phone Number MARITA GUNTER * Specimen to Pathology (surgical or derm) (10/03/2013 11:09 AM EDT) AP Specimen 10/03/2013 11:0 9 AM EDT 10/03/2013 11:09 AM EDT Narrative MARITA GUNTER - 10/03/2013 11:09 AM EDT Specimen requisition ordered. ??Separate Pathology report to follow Criss Laguerre MD PATHOLOGY/CYTOLOGY O SKYLA Performing Organization Address [facility] de Phone Number MARITA GUNTER * Specimen to Pathology (surgical or derm) (10/03/2013 11:09 AM EDT) AP Specimen 10/03/2013 11:0 9 AM EDT 10/03/2013 11:09 AM EDT Narrative MARITA GUNTER - 10/03/2013 11:09 AM EDT Specimen requisition ordered. ??Separate Pathology report to follow Criss Laguerre MD PATHOLOGY/CYTOLOGY O SKYLA Performing Organization Address [facility] de Phone Number MARITA GUNTER * Specimen to Pathology (surgical or derm) (10/03/2013 11:09 AM EDT) AP Specimen 10/03/2013 11:0 9 AM EDT 10/03/2013 11:09 AM EDT Narrative MARITA GUNTER - 10/03/2013 11:09 AM EDT Specimen requisition ordered. ??Separate Pathology report to follow Criss Laguerre MD PATHOLOGY/CYTOLOGY O SKYLA Performing Organization Address [facility] de Phone Number MARITA GUNTER * COLONOSCOPY (10/03/2013 10:09 AM EDT) COLONOSCOPY [facility] ___ Patient Name: Jessica Robe ? Procedure Date: 10/03/2013 10:09 AM ? Date of : 1970 ? Age: 43 ? Order #: [id number] ? ___ Procedure: ? Colonoscopy Indications: ? Change in bowel habits Providers: ? Criss Laguerre MD, Betzy Whitmore, ? RN, Unruly Leavitt, Property Utilization Manager Referring MD: ?Criss Youssef MD, Elbert Mcdaniel [...] UPPER GI ENDOSCOPY (10/03/2013 10:08 AM EDT) UPPER GI ENDOSCOPY [facility] Endoscopy Patient Name: Jessica Epstein ? Procedure Date: 10/03/2013 10:08 AM ? Date of : 1970 ? Age: 43 ? Order #: [id number] ? Procedure: ? Upper GI endoscopy Indications: ? Dysphagia Providers: ? Criss Laguerre MD, Betzy Whitmore, ? RN, Unruly Leavitt, Property Utilization Manager Referring : ?Criss Youssef MD, Elbert Mcdaniel [...] PROVATION documented in this encounter Visit Diagnoses Diagnosis Globus sensation Gastrointestinal malfunction arising from mental factors documented in this encounter Administered Medications Inactive Administered Medications - up to 3 most recent administrations Medication Order MAR Action Action Date Dose Rate Site diphenhydrAMINE (BENADRYL) injection ONCE PRN, Starting on Thu10/03/13 at 1020, Until Thu10/03/13 at 2037, Itching, Intra-Operative (Intra-Procedure), Routine Given 10/03/2013 10:37 AM EDT 12.5 mg Given 10/03/2013 10:20 AM EDT 12.5 mg fentaNYL 50mcg/mL injection ONCE PRN, Starting on Thu10/03/13 at 1018, Until Thu10/03/13 at 2037, Pain, Intra-Operative (Intra-Procedure), Routine Given 10/03/2013 10:37 AM E DT 25 mcg Given 10/03/2013 10:34 AM EDT 50 mcg Given 10/03/2013 10:22 AM EDT 50 mcg lactated ringers infusion 100 mL/hr, Intravenous, CONTINUOUS, Starting on Thu10/03/13 at 1030, Until Thu10/03/13 at 2037, Endoscopy (Day of Procedure) New Bag 10/03/2013 10:07 AM EDT 100 mL/hr 100 mL/hr midazolam (PF) (VERSED) 1 mg/mL injection ONCE PRN, Starting on Thu10/03/13 at 1018, Until Thu10/03/13 at 2037, Sleep, Intra-Operative (Intra-Procedure), Routine Given 10/03/2013 10:57 AM EDT 0.5 mg Given 10/03/2013 10:37 AM EDT 0.5 mg Given 10/03/2013 10:34 AM EDT 1 mg documented in this encounter Active and Recently [...] Thu10/03/13 at 1018, Until Thu10/03/13 at 2037, Sleep, Intra-Operative (Intra-Procedure), Routine 1018 (Given - Provid er: Betzy Whitmore RN)1022 (Given - Provider: Betzy Whitmore RN)1034 (Given - Provider: Betzy Whitmore RN)1037 (Given - Provider: Betzy Whitmore RN)1057 (Given - Provider: Betzy Whitmore RN) documented in this encounter Care Teams Glassware Selector Relationship Specialty Start Date End Date Criss Youssef MD [address] [place] [address] PCP - General 09/01/13 documented as of this encounter
--- OUTSIDE RECORDS SUMMARY | 2024-01-18 12:35 | XMS_ITS | Encounter Summary ---
Author Organization [facility] Address [address] [place] [address] Care Team Providers Care Cell Attendant Name Role Phone Elizabeth Toan Ramírez Primary Care Provider [phone] Encounter Details Date Type Department Care Team (Late st Contact Info) Description 04/19/2020 Lab Requisition [facility] Pathology & Laboratory Medicine - [facility] [address] [place] [address] Torrie Olson, DO [address] [place], [place] [address] Encounter for other general examination Social History Tobacco Use Types Packs/Day Years Used Date Smoking Tobacco: Never Assessed Sex and Gender Information Value Date Recorded Sex Assigned at Not on file Gender Identity Not on file Sexual Orientation Not on file documented as of this encounter Plan of Treatment Not on file documented as of this encounter Procedures Procedure Name Priority Date/Time Associated Diagnosis Comments SURGICAL PATHOLOGY Today 04/19/2020 8: 55 EST Encounter for other general examination documented in this encounter Results * SURGICAL PATHOLOGY (04/19/2020 8:55 EST) Final Diagnosis A. DUODENUM, BULB, BIOPSY: - Duodenal mucosa with no significant diagnostic abnormalities. B. STOMACH, ANTRUM, BIOPSY: - Antral mucosa with reactive (chemical) gastropathy. - Negative for Helicobacter pylori on H&E stained sections. C. STOMACH, GREATER CURVATURE, BIOPSY: - Gastric fundic mucosa with no significant diagnostic abnormalities. - Negative for Helicobacter pylori on H&E stained sections. D. GASTROESOPHAGEAL JUNCTION, BIOPSY: - Squamocolumnar mucosa with mild reactive changes. - Negative for intestinal metaplasia and dysplasia. E. ESOPHAGUS, DISTAL, BIOPSY: - Squamous mucosa with mild reactive changes. 04/23/2020 9:47 [facility] Attestation By the signature below, the attending physician certifies that they have 1) personally conducted a gross and/or microscopic examination of the described specimen(s), and/or personally interpreted the results of laboratory testing of the described specimen(s), and 2) personally rendered or confirmed the above diagnosis. 04/23/2020 9:47 [facility] at 0947 Clinical History Gastritis and hiatal hernia; normal colon 04/23/2020 9:47 [facility] Gross Description A. Received in formalin labelled with proper patient identification (initials N, R) and duodenal bulb is a duron-pink tissue measuring 0.4 x 0.2 x 0.2 cm. Submitted intact in A1. B. Received in formalin labelled with proper patient identification (initials N, R) and antrum is a 0.2 x 0.2 x 0.1 cm duron-pink tissue. Submitted intact in B1. C. Received in formalin labelled with proper patient identification (initials N, R) and greater curve is a duron-pink tissue measuring 0.5 x 0.2 x 0.1 cm. Submitted intact in C1. D. Received in formalin labelled with proper patient identification (initials N, R) and GE junction is a 0.5 x 0.4 x 0.1 cm pink-white tissue. Submitted intact in D1. E. Received in formalin labelled with proper patient identification (initials N, R) and distal esophagus is a duron-white tissue measuring 0.2 x 0.2 x 0.1 cm. Submitted intact in E1. EARLE MENDOZA(ASCP) 04/19/2020 18:55 04/23/2020 9:47 [facility] Resident/Wade w: Pako Mallory MD 04/23/2020 9:47 [facility] Performing Lab [facility] 9:47 [facility] Scanned Images 04/23/2020 9:47 [facility] Tissue ENTIRE ESOPHAGUS / Unknown 04/19/2020 8:55 EST 04/19/2020 17:39 EST Tissue specimen (specimen) PYLORIC ANTRUM STRUCTURE / Unknown 04/19/2020 8:55 EST 04/19/2020 17:39 EST Tissue specimen (specimen) STOMACH STRUCTURE / Unknown 04/19/2020 8:55 EST 04/19/2020 17:39 EST Tissue specimen (specimen) ESOPHAGEAL STRUCTURE / Unknown 04/19/2020 8:55 EST 04/19/2020 17:39 EST Tissue specimen (specimen) ESOPHAGEAL STRUCTURE / Unknown 04/19/2020 8:55 EST 04/19/2020 17:39 EST Torrie Olson DO PATHOLOGY ORDERABLES Performing Organization Address City/State/[facility] Co de Phone Number [facility] [address] [place] [address] documented in this encounter Visit Diagnoses Diagnosis Encounter for other general examination documented in this encounter Care Teams Cell Attendant Relationship Specialty Start Date End Date Toan Johnson [address] [place] [address] PCP - General Family Medicine - Hospital Medicine 04/19/20 documented as of this encounter
--- OUTSIDE RECORDS SUMMARY | 2024-01-18 12:35 | XMS_ITS | Encounter Summary ---
Author Organization [facility] Address [address] [place] [address] Care Team Providers Care Furnace Operator Name Role Phone Unavailable Primary Care Provider Unavailabl e Encounter Details Date Type Department Care Team (Late st Contact Info) Description 08/03/2001 Results Only [facility] - Maple conversion [address] [place] [address] Vladislav Lemon MD [address] [place] [address] Social History Tobacco Use Types [...] Date/Time Associated Diagnosis Comments SURGICAL PATHOLOGY Routine 08/03/2001 0:00 EST documented in this encounter Results * SURGICAL PATHOLOGY (08/03/2001 0:00 EST) Pathology Report: SURGICAL PATHOLOGY REPORT Reports generated via electronic interface contain original data; however they are lacking the format of the original report. Caution should be taken when reading/interpreti ng unformatted reports. Name: ? JESSICA EPSTEIN ? Accession #: ? [id number] ? : ? 1970 (Age: 31) ??F ? Collect Date: ? 08/03/2001 ? Location: ? [facility] ? Receive Date: ? 08/03/2001 ? Provider: VLADISLAV LEMON MD Copy to: DEBI YEAGER MD ? Final Pathologic Diagnosis: A. ?Pelvic sidewall, left, excision: 1. ?Fibroconnective adipose tissue, negative for endometriosis. B. ?Uterus, cervix, right fallopian tube and ovary, hysterectomy and right salpingo-oophorect airam: 1. ?Cervix: ? - Squamous metaplasia. 2. ?Endometrium: ? - Weakly proliferative endometrium. 3. ?Myometrium: ? - No pathologic features. 4. ?Serosa: ? - Focal serosal adhesions. 5. ?Fallopian tube: ? - No pathologic features. 6. ?Ovary: ? - Cystic follicles. Document reviewed and electronically signed by: ROHINI SANCHES MD Report ??Date: 08/04/2001 16:12 By the signature above, the attending physician certifies that he/she has personally conducted a gross and/or microscopic examination of the described specimens and rendered or confirmed the above diagnosis. Specimen(s) Received: A. ?Left pelvic sidewall bx (#1) B. ?Uterus with right tube and ovary (#2) Clinical History: ? ; endometriosis, adhesions, dysmenorrhea, dyspareunia, pelvic pain, abnl bleeding; unresponsive to medical & surgical Rx Gross Description: ? Received in formalin labelled Robe and 1 ??left pelvic sidewall bx is a duron-white wrinkled 1.0 x 0.5 x 0.3 cm soft tissue. The specimen is longitudinally bisected and is entirely submitted as (A). Received in formalin labelled Robe and uterus R tube and ovaries is a product of a hysterectomy with attached right adnexa. The corpus uteri and cervix weighs 122 grams and measures 8.9 cm from fundus to cervix, 5.2 cm from cornu to cornu and 3.2 cm ??anterior to posterior. The serosa is duron-pink, smooth and glistening. There is a moderate amount of attached hemorrhagic material on the posterior uterine segment aspect. The ectocervix is leija-white, wrinkled with a central patent 1.0 cm slight-like os. ??The endocervical canal is grossly unremarkable. The endometrium is duron-red and glistening and ranges from 0.1 to 0.3 cm in thickness. ??The myometrium is duron-pink, averages 1.7 cm in thickness with no discrete nodules identified. ??The attached right previously disrupted fimbriated end fallopian tube measures 6.0 cm in length, 0.5 cm in diameter and upon sectioning, the cut surfaces are duron-white with a central pinpoint lumen. In the proximal region of the tube, there is a duron-white surgical device which is grossly consistent with a Falope ring. ??This device measures 2.3 cm from the proximal margin of resection. ??The duron-white multilobulated attached right ovary measures 4.3 x 2.5 x 2.2 cm. ??Upon sectioning, the cut surfaces are duron-white with multiple eccentric duron-white thin walled cyst-like structures which range from 0.2 to 0.7 cm in greatest dimension. The cystic structures have a duron-white smooth wall with no excrescences grossly identified. ??The cystic structures occupy approximately 50% of the ovarian parenchyma. ??Community Health Agent sections are submitted as follows: BLOCK VELAZQUEZ B1 ?Anterior cervix B2 ?Posterior cervix B3, B4 ?Anterior endomyometrium B5, B6 ?Posterior endomyometrium B7 ?Posterior lower uterine segment serosa B8 ?Community Health Agent right fallopian tube B9-B11 ?Community Health Agent right ovary (Poncho Lobo)/[facility] End of Report SASKIA SANCHEZ 08/03/2001 08/03/2001 14: 10 EST Vladislav Lemon MD PATHOLOGY ORDERABLES SASKIA SANCHEZ [address] [place] [address] documented in this encounter Visit Diagnoses Not on filedocumented in this encounter
--- OUTSIDE RECORDS SUMMARY | 2024-01-18 12:35 | XMS_ITS | Clinical Summary ---
Author Organization Formerly [facility] Address [facility] [place] [address] Care Team Providers Care Excelsior Machine Operator Name Role Phone Long Youssef MD Primary Care Provider [phone] Allergies Active Allergy Reactions Criticality Noted Date Comments Codeine Phosphate Meperidine Other (See Comments) Medium 09/05/2013 Meperidine Hcl Penicillins Medications Medication Sig Dispensed Refills Start Date End Date Status acetaminophen (TYLENOL) 325 mg tablet Take 650 mg by mouth every 4 hours as needed. Active fluticasone (FLONASE) 50 mcg/actuation nasal sprayIndications:Chron ic rhinitis 2 sprays by Each Nare route daily. 16 g 12 10/05/2013 Active Active Problems Problem Noted Date Diagnosed Date Change in bowel habits 09/05/2013 Immunizations Name Administration Dates Next Due Tuberculin Skin Test, PPD 04/17/2006 Social History Tobacco Use Types Packs/Day Years Used Date Smoking Tobacco: Every Day Cigarettes Smokeless Tobacco: Never Sex and Gender Information Value Date Recorded Sex Assigned at Not on file Gender Identity Not on file Sexual Orientation Not on file Last Filed Vital Signs Vital Sign Reading Time Taken Comments Blood Pressure 119/65 10/05/2013 9:30 AM EDT Pulse 60 10/05/2013 9:30 AM EDT Temperature 36.6 ??C (97.9 ??F) 10/03/2013 9:57 AM ED T Respiratory Rate 12 10/03/2013 11:19 AM EDT Oxygen Saturation 99% 10/03/2013 11:19 AM EDT Inhaled Oxygen Concentration - - Weight 51.3 kg (113 lb) 10/05/2013 12:44 PM EDT Height 160 cm (5' 3) 10/05/2013 9:30 AM EDT Body Mass Index 20.02 10/05/2013 9:30 AM EDT Plan of Treatment Health Maintenance Due Date Last Done Comments CT Colonography 1971 FIT DNA 1971 FIT 1971 Sigmoidoscopy 1971 HIV screen 1989 Hepatitis C Screening 1989 Hepatitis B vaccine (0-59 yrs) (1) 1990 Tdap adult 1990 Tetanus vaccine 1990 HPV test 2001 PAP Smear 2001 Breast Cancer Share Decision Needed 2011 Breast Cancer screening 2011 Zoster vaccine (1 of 2) 2021 Colonoscopy 10/04/2023 10/03/2013, 10/03/2013 Colorectal Cancer Screening 10/04/2023 Sigmoidoscopy (10 year) with FIT yearly 10/04/2023 0 10/03/2013, 10/03/2013 Covid-19 Vaccine ( season) 2024 Influenza (Flu) vaccine (1 o f 1 - Influenza standard series) 01/03/2024 Procedures Procedure Name Priority Date/Time Associated Diagnosis Comments COLONOSCOPY Routine 10/03/2013 10:09 AM EDT from Last 3 Months or Most Recently Relevant to Health Maintenance Results * COLONOSCOPY (10/03/2013 10:09 AM EDT) COLONOSCOPY [facility] Endoscopy ___ Patient Name: Christiana Nagel ? Procedure Date: 10/03/2013 10:09 AM ? Date of : 1970 ? Age: 43 ? Order #: [id number] ? ___ Procedure: ? Colonoscopy Indications: ? Change in bowel habits Providers: ? Long Laguerre MD, Betzy Whitmore, ? RN, Unruly Leavitt, Telex Operator Referring MD: ?Long Youssef MD, Elbert Mcdaniel MD Medicines: ? [...] ? based on pathology results. ? _ Long Laguerre MD 10/03/2013 11:23 AM Number of Addenda: 0 Note Initiated On: 10/03/2013 10:09 AM PROVATION 10/03/2013 10:0 9 AM EDT Long Youssef MD GENERAL SURGICAL ORD ERABLES PROVATION from Last 3 Months or Most Recently Relevant to Health Maintenance Care Teams Excelsior Machine Operator Relationship Specialty Start Date End Date Long Youssef MD [address] [place] [address] PCP - General 09/01/13
--- OUTSIDE RECORDS SUMMARY | 2024-01-18 12:35 | XMS_ITS | Encounter Summary ---
Author Organization Formerly [facility] Address [facility] [place] [address] Care Team Providers Care Locomotive Operator Helper Name Role Phone Long Youssef MD Primary Care Provider [phone] Encounter Details Date Type Department Care Team (Latest Contact Info) Description 10/05/2013 10:12 AM EDT - 10/05/2013 11:59 PM EDT Hospital Encounter MRI at [facility], [place], operated by [facility] [place] [address] CLINIC, Monty Wade MD [facility] [place] [address] Abdominal pain, periumbilical Discharge Disposition: Home Social History Tobacco Use Types Packs/Day Years Used Date Smoking Tobacco: Every Day Cigarettes Smokeless Tobacco: Never Sex and Gender Information Value Date Recorded Sex Assigned at Not on file Gender Identity Not on file Sexual Orientation Not on file documented as of this encounter Last Filed Vital Signs Vital Sign Reading Time Taken Comments Blood Pressure - - Pulse - - Temperature - - Respiratory Rate - - Oxygen Saturation - - Inhaled Oxygen Concentration - - Weight 51.3 kg (113 lb) 10/05/2013 12:44 PM EDT Height - - Body Mass Index 20.02 10/05/2013 9:30 AM EDT documented in this encounter Medications at Time of Discharge Medication Sig Dispensed Refills Start Date End Date fluticasone (FLONASE) 50 mcg/actuation nasal sprayIndications:Chronic rhinitis 2 sprays by Each Nare route daily. 16 g 12 10/05/2013 acetaminophen (TYLENOL) 325 mg tablet Take 650 mg by mouth every 4 hours as needed. documented as of this encounter Plan of Treatment Not on file documented as of this encounter Procedures Procedure Name Priority Date/Time Associated Diagnosis Comments MRI ENTEROGRAPHY WITH/WO CONTRAST Routine 10/05/2013 1:45 PM EDT documented in this encounter Results * MRI enterography with/WO contrast (10/05/2013 1:45 PM EDT) Anatomical Region Laterality Modality Abdomen Magnetic Resonan ce 10/05/2013 1:45 PM EDT Narrative 10/05/2013 4:55 PM EDT Examination MR Enterography With and Without Contrast Clinical History abd pain ?? ? narrowing/stricture/lesion/inflammation Comparison None Technique MRI of the interviews performed before and after the intravenous administration of 10 mL of Magnevist. Findings Normal appearance of the bilateral lung bases. ??No pleural effusion. ?? Two subcentimeter T2 hyperintense nodules are seen within the liver which are too small to further characterize, that most likely represent simple cysts; however definitive characterization is limited by technique. ??Normal appearance of the gallbladder, pancreas spleen, adrenal glands, and kidneys. ?? The small bowel demonstrates normal peristalsis throughout. ??No abnormal areas of inflammation or wall thickening identified. ??No areas of stricturing. ??No fistulae. ?? The colon is mildly redundant and filled with stool. ?? The bladder is partially distended but otherwise normal. The patient is status post hysterectomy. ?? Normal appearance of the visualized bone marrow. ?? Impression 1 . Normal MR enterography. ?? Film and interpretation reviewed by the attending Procedure Note Marcia Patel MD - 10/05/2013 Examination MR Enterography With and Without Contrast Clinical History abd pain ? narrowing/stricture/lesion/inflammation Comparison None Technique MRI of the interviews performed before and after the intravenousadministration of 10 mL of Magnevist. Findings Normal appearance of the bilateral lung bases. No pleural effusion. Two subcentimeter T2 hyperintense nodules are seen within the liver whichare too small to further characterize, that most likely represent simplecysts; however definitive characterization is limited by technique. Normalappearance of the gallbladder, pancreas spleen, adrenal glands, and kidneys. The small bowel demonstrates normal peristalsis throughout. No abnormalareas of inflammation or wall thickening identified. No areas of stricturing.No fistulae. The colon is mildly redundant and filled with stool. The bladder is partially distended but otherwise normal. The patient isstatus post hysterectomy. Normal appearance of the visualized bone marrow. Impression 1 . Normal MR enterography. Film and interpretation reviewed by the attending Monty Bowman MD IMG MRI ORDERABLES documented in this encounter Visit Diagnoses Diagnosis Abdominal pain, periumbilical Abdominal pain, periumbilic documented in this encounter Administered Medications Inactive Administered Medications - up to 3 most recent administrations Medication Order MAR Action Action Date Dose Rate Site barium sulfate (VOLUMEN) oral suspension 1,350 mL 1,350 mL, Oral, ONCE PRN, 1 dose, Starting on Thu10/05/13 at 1245, Until Thu10/05/13 at 1130, Per Protocol, Routine Given 10/05/2013 11:30 AM EDT 1,350 mLs gadopentetate dimeglumine (MAGNEVIST) injection 10 mL 10 mL (0.2 mL/kg/dose ? 51.3 kg), Intravenous, ONCE PRN, Per Protocol, Starting on Thu10/05/13 at 1246, 1 dose, Until Thu10/05/13 at 1333 Given 10/05/2013 1:33 PM EDT 10 mLs documented in this encounter Care Teams Locomotive Operator Helper Relationship Specialty Start Date End Date Long Youssef MD [address] [place] [address] PCP - General 09/01/13 documented as of this encounter
--- OUTSIDE RECORDS SUMMARY | 2024-01-18 12:35 | XMS_ITS | Encounter Summary ---
Author Organization [facility] Address [address] [place] [address] Care Team Providers Care Digital Marketing Consultant Name Role Phone Hermilo Pugh DO Primary Care Provider [phone] Toan Johnson Primary Care Provider [phone] Encounter Details Date Type Department Care Team (Late st Contact Info) Description 04/16/2020 Lab Requisition [facility] Pathology & Laboratory Medicine - [address] [address] Outr Resulting Lab, Provider Social History Tobacco Use Types Packs/Day Years Used Date Smoking Tobacco: Never Assessed Sex and Gender Information Value Date Recorded Sex Assigned at Not on file Gender Identity Not on file Sexual Orientation Not on file documented as of this encounter Plan of Treatment Not on file documented as of this encounter Procedures Procedure Name Priority Date/Time Associated Diagnosis Comments ZZCOVID-19 TEST [facility] PCR Today 04/16/2020 9:05 EST COVID-19 TESTING Routine 04/16/2020 9:05 EST documented in this encounter Results * COVID-19 TEST [facility] PCR (04/16/2020 9:05 EST) Swab ENTIRE NASOPHARYNX / Unknown 04/16/2020 9:05 EST 04/16/2020 15:37 EST Provider Outr Resulting Lab MICROBIOLOGY - GENERAL ORDERABLES [facility] [address] [place] [address] * COVID-19 TESTING (04/16/2020 9:05 EST) COVID-19 rt-PCR Result Negative Negative 04/17/2020 17:25 EST [facility] Comment: Negative results do not preclude 2019-nCoV infection and should not be used as the sole basis for treatment or other patient management decisions. Negative results must be combined with clinical observations, patient history, and epidemiological information. This test was developed and its performance characteristics determined by [facility]. It has not been cleared or approved by the US Food and Drug Administration. FDA does not require this test to go through premarket FDA review. This test is used for clinical purposes. It should not be regarded as investigational or for research. This laboratory is certified under the Clinical Laboratory Improvement Amendments (CLIA) as qualified to perform high complexity clinical laboratory testing. This test is based on the CDC COVID-19 Emergency Use Authorization (EUA) assay, with minor modification as defined by the FDA Performed on the Biom[employer] CHP Flex. Performing Lab [facility] Lab 04/17/2020 17:25 EST [facility] Swab 04/16/2020 9:05 EST 04/16/2020 15:37 EST Provider Outr Resulting Lab MICROBIOLOGY - GENERAL ORDERABLES [facility] [address] [place] [address] documented in this encounter Visit Diagnoses Not on filedocumented in this encounter Care Teams Digital Marketing Consultant Relationship Specialty Start Date End Date Hermilo Pugh DO [address] [place] [address] PCP - General 09/03/12 04/18/20 Toan Johnson [address] [place] [address] PCP - General Family Medicine - [facility] Medicine 04/19/20 documented as of this encounter
--- OUTSIDE RECORDS SUMMARY | 2024-01-18 12:35 | XMS_ITS | Encounter Summary ---
Author Organization [facility] Address [address] [place] [address] Care Team Providers Care Tumbler Machine Operator Helper Name Role Phone Unavailable Primary Care Provider Unavailabl e Encounter Details Date Type Department Care Team (Late st Contact Info) Description 03/24/2005 Office Visit [facility] [address] [place], [place] [id number] Connor Kenny, EARLE-C [address] [facility], [address] [place] [address] Social History Tobacco Use Types Packs/Day Years Used Date Smoking Tobacco: Never Assessed Sex and Gender Information Value Date Recorded Sex Assigned at Not on file Gender Identity Not on file Sexual Orientation Not on file documented as of this encounter Progress Notes * Connor Kenny Jr., EARLE - 07/04/2009 0423 EST Department - Physician Summary Registration Date/Time: 03/24/2005 16:11 Arrived- By private vehicle. Referred ([facility]). Historian- patient. HISTORY OF PRESENT ILLNESS Chief Complaint: Wants to stop drinking. Unknown as to when symptoms started. Duration of substanceabuse- since age 14 Substances abused: Alcohol and marijuana. Last drink less than 24 hours ago. She has been agitated. No fever, chills, nausea, vomiting or diarrhea. No abdominal pain, tremors, seizure or hallucinations. Not confused or paranoid. The symptoms are described as mild. No injuries noted. The patient has had similar symptoms previously. These occurred occasionally. Not recently seen/assessed. REVIEW OF SYSTEMS The patient has not had weight loss. No sweats, headache, dizziness, weakness or chest pain. No palpitations, sore throat or cough. PAST HISTORY See nurses notes. History of alcoholism. Medications: None. Allergies:See nurses notes. SOCIAL HISTORY Smoker. Patient drinks alcohol. ADDITIONAL NOTES The nursing notes have been reviewed. PHYSICAL EXAM Appearance: Alert. No acute distress. Vital Signs: The vital signs have been reviewed. Head: Head atraumatic. Eyes: Pupils equal, round and reactive to light. ENT: Normal ENT inspection. Airway intact. Moist mucous membranes. Pharynx normal. Neck: Normal inspection. Neck supple. CVS: Normal heart rate and rhythm. Heart sounds normal. Pulses normal. Respiratory: No respiratory distress. Breath sounds normal. Abdomen: Abdomen soft and nontender. No organomegaly. Back: Normal inspection. Skin: Normal skin color. Skin warm. No rash. Extremities: Extremities exhibit normal ROM. No pedal edema. Neuro: Alert. Oriented X 3. Mood/affect normal. Speech normal. Cranial nerves normal (as tested). No cerebellar findings. PROGRESS AND PROCEDURES E.D. Course: Patient is stable. Patient/family counseled. ED Attending on duty and available for supervision: Alee Dang. Disposition: Discharged home in good condition. Condition: good. CLINICAL IMPRESSION Alcohol withdrawal. INSTRUCTIONS Warnings: GENERAL WARNINGS: Return or contact your physician immediately if your condition worsens or changesunexpectedly, if not improving as expected, or if other problems arise (seizures, hallucinations). Prescription Medications: Diazepam 10 mg tablets. No refill (take according to [facility] protocol # 15, to be filled by [facility] staff only). Follow-up: Follow up with your doctor as needed. (Electronically signed by Bhavna Lora 03/24/2005 18:52) Addenda for CHRISTIANA EPSTEIN VisitID: [id number] Date: 03/24/2005 03/24/2005 16:11 [facility] REFERS PT TO ED FOR EVAL. CC: ALCOHOL DETOX. signed by Edmond Zelaya - 03/24/2005 16:11) Department - Nursing Summary Registration Date/Time: 03/24/2005 16:11 TRIAGE Initial Assessment Triage time 16:23 Mar 24 2005 Acuity: LEVEL 3. BP: 102 / 66 HR: 91 RR: 18 Temp: 36.2 C (tympanic). Alert. No acute distress. --1628 Liza Read R.N. Medications None. --1628 Liza Read R.N. Allergies (PCN, Demerol, toradol, Tylenol with codeine). --1628 Liza Read R.N. History Chief Complaint: ([facility] clearance). This started last night. (03/24/2005 16:111 REFERS PT TO ED FOR EVAL. CC: ALCOHOL DETOX..,, (Electronically signed by Edmond Zelaya - 03/24/2005 16:11). Last drink was last night and ptstates she woke up feeling like she was withdrawing. ). (anxiety, nausea). PAST HX: Hysterectomy (for endometriosis). Knee surgery. Tonsillectomy. SOCIAL HX: Smoker: 1-2 packs per day. Patient admits to drinking alcohol (6-12 pack of beer daily, more if pt goes out). No report of abuse. Arrived by private vehicle. Historian: patient. --1628 Liza Read R.N. PHYSICAL ASSESSMENT Alert. Appears anxious. Oriented X 3. Respirations not labored. Skin intact. Skin is warm and dry. --1629 Liza Read R.N. NURSING PROGRESS NOTES Progress Patient identifiers checked. Call light placed in reach. Patient ready for evaluation. --1640 Jia, (Evaluated and discharged by LINDA Kenny.). --164 Talia Palmer R.N. DISPOSITION / DISCHARGE Condition at departure: stable. No barriers to learning present. Discharge instructions reviewed with the patient. Reviewed medication side effects, precautions, dosing and course; prescription (s) given to the patient (Diazepam). Patient verbalized understanding. Written instructions provided in Luxembourgish. The patient was discharged ([facility]) and unaccompanied at time of discharge. The patient left the Emergency Department ambulatory and via taxi. --165 Talia BerrimanKrys R.N., Francesca Berriman R.N. Locked/Released at 03/24/2005 16:50 by Talia Palmer R.N. documented in this encounter Plan of Treatment Not on file documented as of this encounter Visit Diagnoses Not on filedocumented in this encounter
--- NOTE | 2024-01-18 12:45 | DI.CT_ITS ---
Exam(s) CT ABDOMEN PELVIS W EXAM: CT ABDOMEN PELVIS W CLINICAL HISTORY: LLQ pain. TECHNIQUE: Imaging Protocol: Axial computed tomography images with coronal and sagittal reformatted images were created and reviewed CONTRAST MATERIAL: Intravenous: Omnipaque 350 Contrast volume:100 ml Oral: no COMPARISON: CT CT ABDOMEN PELVIS WO from 04/02/2020 FINDINGS: ABDOMEN and PELVIS: Lung Bases: No acute findings. Liver: Normal density. No suspicious mass. Gallbladder and biliary tract: No radiodense calculus. No biliary dilation. Pancreas: Normal density. No abnormal calcifications or inflammatory process. No evidence of mass. Spleen: Normal. Kidneys: Normal size, contour and axis. No radiodense stones. No obstructive uropathy. No suspicious masses seen. Adrenal glands: No masses seen. Vasculature: Abdominal aorta non-dilated. Soft tissues: Unremarkable. Bladder: No gross wall thickening. No calculi.No focal mass. Bowel: No obstruction. No bowel wall thickening. Appendix normal. Moderate quantity of stool. Peritoneal cavity: No ascites. No focal collection. No mesenteric inflammatory response. Bones: Unremarkable for age. Reproductive organs: Status post hysterectomy. Lymph nodes: No pathologically enlarged lymph nodes. IMPRESSION:: No acute abnormality in the abdomen or pelvis. RADIATION DOSE DELIVERED: Total DLP DATA REPOSITORY: All CT scans at this facility are submitted to the National Radiology Data Registry (NRDR) Dose Index Registry (DIR) with the [employer] (ACR). RADIATION OPTIMIZATION: All CT scans at this facility use at least one of these dose optimization te chniques: automated exposure control; mA and/or kV adjustment per patient size (includes targeted exa ms where dose is matched to clinical indication); or iterative reconstruction.
[2024-01-18 12:47] LABS: Abs Immature Grans 0.02 10^3/uL (0.0-0.06); Absolute Basophil Count 0.04 10^3/uL (0.0-0.2); Absolute Eosinophil Count 0.13 10^3/uL (0.0-0.7); Absolute Lymphocyte Count 0.37 10^3/uL (1.2-3.4); Absolute Neutrophil Count 4.39 10^3/uL (1.2-6.7); Basophils % 0.8 %; Eosinophils % 2.5 %; HCT 33.8 % (36.0-46.0); Immature Grans % 0.4 %; MCH 30.9 pg (27.0-33.0); MCHC 32.5 % (32.0-36.0); MCV 95 fL (80-95); MPV 10.5 fL (8.0-11.0); Monocytes % 5.7 %; Neutrophils % 83.6 %; Platelet Count 181 10^3/uL (130-400); RBC 3.56 10^6/uL (3.93-5.22); RDW 13.2 % (11.7-14.6); RDW-SD 46.3 fL; WBC 5.25 10^3/uL (4.4-10.8)
--- NOTE | 2024-01-18 12:48 | W.ED.GENAD ---
Discharge Plan Disposition Patient Disposition: Home Condition: Good Discharge Details Clinical Impression: Abdominal pain, chronic, bilateral lower quadrant, Atypical chest pain Primary Care Provider: Unknown,Unknown ED Provider: Serena Meraz Home Meds and New Rx's Prescriptions: Continued ibuprofen 200 mg capsule 200 mg PO Q6H PRN Discharge Instructions Instructions: Abdominal Pain, Adult ED, Chest Pain, Adult ED Additional Instructions: Labs and imaging are reassuring here today. I believe your chest pain is likely from heavy lifting at work and muscular in nature. Your chronic abdominal pain may be postsurgical as you had noted, this could potentially be associated with scar tissue. Alternatively, there was some blood noted in your urine which should be followed up, please discuss this further with your primary care. Could have some inflammation in your bladder which causes some of your symptoms. No indication of infection at this point. Please continue to encourage hydration. May use Tylenol and ibuprofen as needed for discomfort. Please return with any new or worsening symptoms. You may use the capsaicin cream as directed on the packaging but please wear gloves when applying and apply very small amount. Stand Alone Forms: Work Release HPI General Date/Time Provider Initiated Documentation: 01/18/24 12:36. Limitations to Documentation: no limitations. Information obtained by: patient, RN notes reviewed and old records reviewed. History of Present Illness 53 year old F presents to the emergency department with the chief complaint of Chest pain, chronic abdominal pain, described as moderate and similar to prior episodes, and is localized to the chest and abdomen. Patient reports no radiation. Patient started experiencing this year(s) (Abdominal pain x 26 years) and it has been intermittent. No relieving factors improve symptom(s), No exacerbating factors reported . Patient notes chest pain; denies diaphoresis, fever/chills, loss of appetite, nausea/vomiting, rash and shortness of breath. Patient did receive the following treatments prior to arrival, none Related Data Home Medications ?Medication ?Instructions ?Recorded ?Confirmed ibuprofen 200 mg capsule 200 mg PO Q6H PRN 04/02/20 01/18/24 Allergies Allergy/AdvReac Type Severity Reaction Status Date / Time Penicillins Allergy Intermediate facial Verified 01/18/24 12:31 swelling tramadol AdvReac Intermediate jessica Verified 01/18/24 12:31 codeine AdvReac Mild Skin Rash Verified 01/18/24 12:31 ketorolac tromethamine (From AdvReac Mild Skin Rash Verified 01/18/24 12:31 Toradol) meperidine AdvReac Mild skin crawls Verified 01/18/24 12:31 General Stated Complaint: Chest Pain RALPH: 2 Review of Systems Constitutional Constitutional: Reports as per HPI, Denies chills, Denies fever(s), Denies headache(s), Denies lethargy and Denies poor appetite ENT Ears, Nose, Mouth, and Throat: Denies dizziness and Denies headache(s) Cardiovascular Cardiovascular: Reports as per HPI, Denies dyspnea and Denies dyspnea on exertion Respiratory Respiratory: Reports as per HPI, Denies chest congestion, Denies cough, Denies pain on inspiration, Denies pain with cough, Denies dyspnea and Denies dyspnea on exertion Gastrointestinal Gastrointestinal: Reports as per HPI, Denies diarrhea, Denies nausea and Denies vomiting Musculoskeletal Musculoskeletal: Reports as per HPI and Denies back pain Integumentary/Breasts Skin/Breast: Reports as per HPI and Denies rash Neurologic Neurologic: Reports as per HPI, Denies dizziness and Denies headache(s) Exam Const General: cooperative, healthy appearing, comfortable, no acute distress and well developed Nutritional Appearance: average body habitus and well nourished Orientation: alert, awake and oriented x3 HENMT Head: normal to inspection Ears: hearing grossly normal bilaterally Mouth: moist mucous membranes Chest Chest: normal inspection of the chest, normal palpation of entire chest wall, no crepitus and tenderness pectoral muscle on the left (with movement, palpation and against resistance) Resp Effort & Inspection: normal respiratory effort, able to speak in complete sentences and no respiratory distress Auscultation: clear to auscultation bilaterally, no rales, no rhonchi and no wheezes Cardio Rate: regular rate Rhythm: regular rhythm Heart Sounds: S1 normal and S2 normal GI Inspection: normal to inspection, no edema and non-distended Palpation: soft, no hepatosplenomegaly, not firm, no guarding, not rigid and tender (diffuse, worse in the lower extermities, particularly the left side) Auscultation: normal bowel sounds Back/Spine/Pelvis Back: no CVA tenderness Skin General skin exam: no rashes or lesions noted Trauma: no lacerations or abrasions Neuro General: patient alert, patient awake and patient oriented x3 Cognition: normal cognition Speech: speech normal Gait: normal gait Extrem General: normal to inspection, capillary refill normal, no pedal edema, no calf tenderness and normal gait Course Vital Signs Vital signs: Vital Signs Temperature 36.9 C 01/18/24 12:24 Pulse 89 01/18/24 12:24 Respiratory Rate 20 01/18/24 12:24 Blood Pressure 177/77 H 01/18/24 12:24 Pulse Oximetry 100 01/18/24 12:24 Temperature 36.9 C 01/18/24 12:24 Pulse 89 01/18/24 12:24 Respiratory Rate 20 01/18/24 12:24 Respiratory Effort Normal 01/18/24 12:33 Blood Pressure 177/77 H 01/18/24 12:24 Pulse Oximetry 100 01/18/24 12:24 Oxygen Delivery Method Room Air 01/18/24 12:24 Oxygen Flow Rate 0 01/18/24 12:24 Pain Level 8 01/18/24 12:24 Medical Decision Making Patient is a pleasant 53-year-old female past medical history significant for abdominal hernia, GERD, endometriosis, presenting today with chief complaint of chest pain and abdominal pain. 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 She has not had pain like this historically. Pain is since subsided. Family history significant for cardiac disease, aunt from an [place]. Mom has history of breast cancer. She denies any shortness of breath. Patient smokes 1 pack/day. Reports remote history of alcohol abuse, is currently sober, uses marijuana several times daily to help with her chronic stomach discomfort. She denies any nausea or vomiting. No change in bowel habits but states that my butt hole has moved to the left. And she noticed that this morning. No blood in her stool. She does report some occasional dysuria but no increasing frequency or urgency. No recent fevers or chills. Past surgical history is significant for multiple laparoscopic procedures for endometriosis, a radical mastectomy. Patient reports that both of her ovaries were removed, per chart the left ovary was removed. She states that abdominal pain is primarily in the left lower quadrant which sounds that this is a normal for her but pain is increased compared to baseline. On exam, patient appears nontoxic. She is resting comfortably no acute distress. She has 2+ distal pulses. Abdominal exam shows diffuse discomfort . Pain is maximal in the left lower quadrant. No CVA tenderness. She does have abdominal pain with palpation superior to the left breast as well as with engagement of these muscles. Given mother's history, also perform breast exam no masses were palpable, no lymphadenopathy. Examined her anus, no acute abnormality, normal alignment, no thrombosed hemorrhoids or lacerations. ECG reviewed by Dr. Cam. There is an area of T wave inversion, otherwise normal and no indication of STEMI. We do not have old for comparison. At this time, patient's not having any chest pain. As the pain came on with lifting, does not sound to be necessarily exertional but rather with engagement of the pectoral muscles, which is able to be replicated here, lower suspicion for ACS. Likely MSK. However, with family history will obtain a troponin and EKG was obtained and reviewed by Dr. Cam. Regard to the abdominal pain, this sounds to be chronic in nature. She states that she uses heat daily to help with the discomfort. Continue chronic pain, chronic marijuana usage and improvement with heat, considered cannabinoid induced hyperemesis. Will give capsaicin cream topically to help with her discomfort. She had several surgeries, potentially obstruction given her risk of scar tissue. She states that she did have to reduce her hernia last night but I do not feel any defects or appreciate hernia at this time. As her pain has greatly increased, will obtain imaging. Discussed this plan with the patient who is in agreement. Labs reviewed. No leukocytosis. Patient has slight anemia with hemoglobin 11.0 which she has had before. CMP without significant abnormality. Her lipase is slightly elevated at 92, this also has been elevated in the past. This is minimal elevation and her history is not highly consistent with pancreatitis nor cyst noted on imaging. Did not feel that management for pancreatitis is appropriate at this time. Pain seems to be much lower than this. Patient also has a small amount of blood in her urine which appears to be chronic for several years. Patient was not aware of this and I did encourage that she discuss this further with her primary care provider as further evaluation is likely warranted, particularly as she has had this chronic discomfort. We discussed that chronic discomfort may also be associated with postsurgical changes, she reports that she has had issues with adhesions historically. CT was reviewed by radiologist with no acute abnormality appreciated. Chest x-ray without any acute abnormalities. Repeat troponin remains within normal limits. Patient feels stable for discharge is requesting discharge home. Work note given at patient's request. Return precautions were discussed. Encourage hydration and supportive care. She did get relief from the capsaicin cream. Encouraged that she continue to use this if this is of benefit to her. Patient does not have insurance, gave her information on community connections and also asked care management to assist with establishing care. Return precautions were discussed. All of her questions and concerns were addressed and she is in agreement this plan. Quality:[facility] Health Related Social Needs: No Data to Display [facility] All Active Problems (Updated 01/18/24 @ 15:52 by EARLE Powell) Atypical chest pain (Acute) Abdominal pain, chronic, bilateral lower quadrant (Acute) Left hip pain (Acute) Erosive gastritis (Acute) Hiatal hernia with GERD (Acute) Colon cancer screening (Acute) Diabetes mellitus screening (Acute) Screening cholesterol level (Acute) Hypotension (Acute) Renal calculi (Chronic) Multiple renal calculi (Acute) Hematuria (Acute) Smoker unmotivated to quit (Acute) Abnormal CT of the abdomen (Acute) Adenomatous colon polyp (Acute) 2013 [facility] [place] Hx of renal calculi (Acute) Medical History History of esophageal reflux Esophagitis Surgical History History of colonoscopy (~04/19/20) Stoiber, Normal History of esophagogastroduodenoscopy (EGD) (~04/19/20) Tonsillectomy (~1999) Repair, ACL (~1990) Oophrectomy, Left Vaginal hysterectomy removed right ovary [place] [facility] [place] [facility] [place] History Mother Breast cancer at 70 after recurrence Diabetes Heart disease Brother Thyroid disorder Social History Smoking/Tobacco Use Status: Current every day Tobacco Type: cigarettes Smoking risk assessment performed?: Yes Alcohol Intake: former Drug use: Daily Substance use type: marijuana Details: Last used @ 0100 per pt. -BR Housing: house Do you feel safe at home: Yes Do you feel safe in your relationship?: Yes
[2024-01-18 13:09] LABS: Lipase 92 U/L (16-77)
[2024-01-18 13:27] LABS: ALT 14 U/L (14-59); AST 18 U/L (15-37); Albumin 3.9 g/dL (3.4-5.0); Alkaline Phosphatase 58 U/L (46-116); Anion Gap 6.1 mmol/L (3-11); BUN 11 mg/dL (7-18); Bilirubin, Total 0.36 mg/dL (0.2-1.0); CO2 29.9 mmol/L (21.0-32.0); CREATININE 0.9 mg/dL (0.55-1.02); Calcium 9.2 mg/dL (8.5-10.1); Chloride 104 mmol/L (98-107); Estimated GFR 76.92 (mL/min/1.73m2); Glucose 97 mg/dL (74-106); Magnesium 1.9 mg/dL (1.8-2.4); Potassium 3.9 mmol/L (3.5-5.1); Sodium 140 mmol/L (136-145); Total Protein 6.9 g/dL (6.4-8.2); Troponin I 4 ng/L (<or=51)
[2024-01-18 14:30] LABS: Troponin I 4 ng/L (<or=51)
[2024-01-18] MEDS: Normal Saline - Diluent 50 ML VIAL IJ (14:51)
[2024-01-18] MEDS: Omnipaque 350 MG/ML 100 ML BTL IJ (14:53)
[2024-01-18 15:34] LABS: Bilirubin Negative (Negative); Blood Small (Negative); Clarity Clear (Clear); Glucose Negative (Negative); Ketones Negative (Negative); Leukocyte Esterase Negative (Negative); Nitrite Negative (Negative); Specific Gravity 1.015 (1.005-1.025); Urobilinogen 0.2 mg/dL (Up to 0.2); pH 7.5 (5-8)
[2024-01-18 15:44] LABS: Bacteria Negative HPF (Negative); C & S Indicated? No; Crystals Negative HPF (Negative); Epithelial Cells Few HPF (Negative); Mucus Negative (Negative); WBC Negative HPF (0-5)
== END 2024-01-18 16:13 | disposition home or self-care (01) ==
PROVIDERS: Emergency Provider Physician Assistant
DX: R10.30 Lower abdominal pain, unspecified (principal); R07.89 Other chest pain; F17.210 Nicotine dependence, cigarettes, uncomplicated
CPT/HCPCS: 80053; 83690; 93005; 99285; 71046; 74177; 81003; 81015; 83735; 84484; 85025; 93010; 99284; J3490

== ENCOUNTER 2024-03-17 14:18 | Emergency (ER) | payer MEDICAID, SELFPAY ==
[2024-03-17 14:21] VITALS: BP 132/82; PULSE 92; RESP 30; TEMP 36.6; O2SAT 97
[2024-03-17 14:24] VITALS: BP 132/82; PULSE 92; RESP 30; TEMP 36.6; O2SAT 97
--- OUTSIDE RECORDS SUMMARY | 2024-03-17 14:29 | XMS_ITS | Encounter Summary ---
Author Organization [facility] Address [address] [place] [address] Care Team Providers Care Glass Inspector Name Role Phone Unavailable Primary Care Provider Unavailabl e Encounter Details Date Type Department Care Team (Late st Contact Info) Description 07/08/[address] [facility] - Maple conversion [address] [place] [address] Vladislav Lemon MD [address] [place] [address] Social History Tobacco Use Types Packs/Day Years Used Date Smoking Tobacco: Never Assessed Comments Unknown Sex and Gender Information Value Date Recorded Sex Assigned at Not on file Legal Sex Female 18:12 EST Gender Identity Not on file Sexual Orientation [...] ? JESSICA EPSTEIN ? Accession #: ? [id number] : ? 1970 (Age: 31) ??F ?Collect [...] End of Report SASKIA SANCHEZ 07/08/2001 07/12/2001 us Vladislav Lemon MD PATHOLOGY ORDERABLES Final Resul t [facility] [address] [place] [address] documented in this encounter Visit Diagnoses Not on filedocumented in this encounter
--- OUTSIDE RECORDS SUMMARY | 2024-03-17 14:29 | XMS_ITS | Encounter Summary ---
Author Organization [facility] Address [address] [place] [address] Care Team Providers Care Car Repair Supervisor Name Role Phone ElizabethDebora baldwinnt Darrell Primary Care Provider [phone]- [phone] Encounter Details Date Type Department Care Team (Late st Contact Info) Description 04/19/2020 Lab Requisition [facility] Pathology & Laboratory Medicine - [facility] [address] [place] [address] Torrie Olson, DO [address] [place], [place] [id number] Encounter for other general examination Social History [...] mucosa with mild reactive changes. 04/23/2020 9:47 [facility] Attestation By the signature below, the attending physician certifies that they have 1) personally conducted a gross and/or microscopic examination of the described specimen(s), and/or personally interpreted the results of laboratory testing of the described specimen(s), and 2) personally rendered or confirmed the above diagnosis. 04/23/2020 9:47 [facility] at 0947 Clinical History Gastritis and hiatal hernia; normal colon 04/23/2020 9:47 [facility] Gross Description A. Received [...] 0.1 cm. Submitted intact in E1. EARLE EMNDOZA(ASCP) 04/19/2020 18:55 04/23/2020 9:47 [facility] Resident/Wade w: Pako Mallory MD 04/23/2020 9:47 [facility] Performing Lab [facility] 9:47 [facility] Scanned Images 04/23/2020 9:47 EST [facility] Tissue ENTIRE ESOPHAGUS / [...] Unknown 04/19/2020 8:55 EST 04/19/2020 17:39 EST us Torrie Olson DO PATHOLOGY ORDERABLES Final Re sult [facility] [address] [place] [address] documented in this encounter Visit Diagnoses Diagnosis Encounter for other general examination documented in this encounter Care Teams Car Repair Supervisor Relationship Specialty Start Date End Date Toan Johnson [address] [place] [id number] PCP - General Family Medicine - Hospital Medicine 04/19/20 documented as of this encounter
--- OUTSIDE RECORDS SUMMARY | 2024-03-17 14:29 | XMS_ITS | Encounter Summary ---
Author Organization [facility] Address [address] [place] [id number] Care Team Providers Care Childbirth Educator Name Role Phone Unavailable Primary Care Provider Unavailabl e Encounter Details Date Type Department Care Team (Late st Contact Info) Description 08/31/2012 Results Only [facility] Laboratory Services - [facility] [place] [address] [place], [place] [id number] Murphy Vargas, DO [address] [facility] [address] [place] [address] Social History Tobacco Use Types [...] ? JESSICA EPSTEIN ? Accession #: ? [id number] ? : ? 1970 (Age: 42) ??F [...] clinical and endoscopic correlation is advised. ??(Dr. Wu)/[facility] Document reviewed and electronically signed by: VIKKI [...] Gross Description: ? Received in formalin labelled Robe, Jessica and #1 bx antrum is a 0.3 x 0.3 x 0.2 cm light duron biopsy. ??The specimen is submitted intact as (A1). Received in formalin labelled Robe, Jessica and #2 distal esophagus are two pink-white biopsies measuring 0.3 x 0.2 x 0.1 cm and 0.6 x 0.2 x 0.1 cm. ??The specimens are submitted intact as (B1). Received in formalin labelled Robe, Jessica and #3 mid esophagus are two pink-white biopsies, each measuring 0.2 x 0.2 x 0.1 cm. ??The specimens are submitted intact as (C1). Received in formalin labelled Robe, Jessica and #4 proximal esophagus are two duron-white biopsies measuring 0.2 x 0.2 x 0.1 cm and 0.4 x 0.3 x 0.1 cm. ??The specimens are submitted intact as (D1). ??(HESHAM Noe)/yuliya End of Report SASKIA SANCHEZ 08/31/2012 9:00 EDT 09/01/2012 9:00 EDT us Murphy Vargas DO PATHOLOGY ORDERABLES Fi nal Result Performing Organization Address City/State/[facility] Co de Phone Number [facility] [address] [place] [address] documented in this encounter Visit Diagnoses Not on filedocumented in this encounter
--- OUTSIDE RECORDS SUMMARY | 2024-03-17 14:29 | XMS_ITS | Encounter Summary ---
Author Organization [facility] Address [address] [place] [address] Care Team Providers Care Pediatric Surgeon Name Role Phone Unavailable Primary Care Provider Unavailabl e Encounter Details Date Type Department Care Team (Late st Contact Info) Description 05/31/1999 Results Only [facility] - Maple conversion [address] [place] [address] [facility] [address] [place] [address] Social History Tobacco Use Types [...] ? JESSICA EPSTEIN ? Accession #: ? [id number] : ? 1970 (Age: 29) ??F ?Collect Date: ? 05/31/1999 Location: ?Receive Date: ? 05/31/1999 Provider: ?JULIA ROSEMARY TENTERING MACHINE OFF BEARER Copy to: ?JULIA ROSEMARY TENTERING MACHINE OFF BEARER ? Specimen/Source: ?Mechanic Welder Truck Driver ThinPrep Last Menstrual Period: ? GYNECOLOGIC ??CYTOPATHOLOGY ??REPORT Name: JESSICA EPSTEIN Kevin ? FA[facility] : 1970 ?? 29Y F ?Client ID: [id number] SS#: ? Clinician: ROSEMARY TENTERING MACHINE OFF BEARER, JULIA ?? Location: [facility] ??Copy to: ?? Specimen: ?Mechanic Welder Truck Driver ThinPrep ? Source: Cervix/Endocervix ?Collected: 05/29/99 ? [...] Puentes, CT(ASCP) ? Report Date: ?? 05/31/1999 Etable Archived Tests - Final Diagnosis Text Field: Clinical History : ; benign cellular changes. Abn. pap 1992, cryo done. NL since. ? Document reviewed and electronically signed by: ? Conversion ? Report Date: ??05/31/1999 00:00 End of Report [facility] 05/31/1999 10:4 1 EST 05/31/1999 10:42 EST us Julia Branch TENTERING MACHINE OFF BEARER PATHOLOGY ORDERABLES Final R esult Performing Organization Address City/State/[facility] Co de Phone Number [facility] [address] [place] [address] documented in this encounter Visit Diagnoses Not on filedocumented in this encounter
--- OUTSIDE RECORDS SUMMARY | 2024-03-17 14:29 | XMS_ITS | Encounter Summary ---
[facility] Address [facility] [place] [address] Care Team Providers Care Assistant Restaurant General Manager Name Role Phone Criss Youssef MD Primary Care Provider [phone] Encounter Details Date Type Department Care Team (Late st Contact Info) Description 10/03/2013 11:00 AM EDT - 10/03/2013 12:00 PM EDT [place] [address] Criss Laguerre MD [facility] DR [place] [address] EGD, UPPER GI ENDOSCOPY (WRVU 2.09) Social [...] you need to be checked. Thursday-Thursday Clinic [phone] 8a-5p Same Day Endo [phone] 7a-8p Otherwise contact [phone] and ask to speak to the attraction attendant media production operator Follow up care is a luong part [...] not get better as expected. Thursday-Thursday Clinic [phone] 8a-5p Same Day Endo [phone] 7a-8p Otherwise contact [phone] and ask to speak to the attraction attendant media production operator Follow-up care is a luong part of [...] (10/03/2013 11:09 AM EDT) Final Diagnosis ? [facility] ? Provider: ?? CRISS LAGUERRE ?Pt. [...] - Labeled/Fixativ e: Cecal polyp, formalin. ? [facility] ? Provider: ?? CRISS LAGUERRE ?Pt. [...] Diagnosis: ? Same 10/07/2013 9:47 AM EDT [facility] GI Biopsy 10/03/2013 11:0 9 [...] MD PATHOLOGY/CYTOLOGY O SKYLA Performing Organization Address [facility] Co de Phone Number [facility] [place] [address] * Specimen to Pathology (surgical or derm) (10/03/2013 11:09 AM EDT) AP Specimen 10/03/2013 11:0 9 AM EDT 10/03/2013 11:09 AM EDT Narrative MARITA GUNTER - 10/03/2013 11:09 AM EDT Specimen requisition ordered. ??Separate Pathology report to follow Criss Laguerre MD PATHOLOGY/CYTOLOGY O SKYLA Performing Organization Address [facility] Co de Phone Number MARITA GUNTER * Specimen to Pathology (surgical or derm) (10/03/2013 11:09 AM EDT) AP Specimen 10/03/2013 11:0 9 AM EDT 10/03/2013 11:09 AM EDT Narrative MARITA GUNTER - 10/03/2013 11:09 AM EDT Specimen requisition ordered. ??Separate Pathology report to follow Criss Laguerre MD PATHOLOGY/CYTOLOGY O SKYLA Performing Organization Address [facility] Co de Phone Number MARITA GUNTER * Specimen to Pathology (surgical or derm) (10/03/2013 11:09 AM EDT) AP Specimen 10/03/2013 11:0 9 AM EDT 10/03/2013 11:09 AM EDT Narrative MARITA GUNTER - 10/03/2013 11:09 AM EDT Specimen requisition ordered. ??Separate Pathology report to follow Criss Laguerre MD PATHOLOGY/CYTOLOGY O SKYLA Performing Organization Address [facility] de Phone Number MARITA GUNTER * Specimen to Pathology (surgical or derm) (10/03/2013 11:09 AM EDT) AP Specimen 10/03/2013 11:0 9 AM EDT 10/03/2013 11:09 AM EDT Narrative MARITA GUNTER - 10/03/2013 11:09 AM EDT Specimen requisition ordered. ??Separate Pathology report to follow Criss Laguerre MD PATHOLOGY/CYTOLOGY O SKYLA Performing Organization Address [facility] de Phone Number MARITA GUNTER * Specimen to Pathology (surgical or derm) (10/03/2013 11:09 AM EDT) AP Specimen 10/03/2013 11:0 9 AM EDT 10/03/2013 11:09 AM EDT Narrative MARITA GUNTER - 10/03/2013 11:09 AM EDT Specimen requisition ordered. ??Separate Pathology report to follow Criss Laguerre MD PATHOLOGY/CYTOLOGY O SKYLA Performing Organization Address [facility] de Phone Number MARITA GUNTER * COLONOSCOPY (10/03/2013 10:09 AM EDT) COLONOSCOPY [facility] ___ Patient Name: Jessica Robe ? Procedure Date: 10/03/2013 10:09 AM ? Date of : 1970 ? Age: 43 ? Order #: [id number] ? ___ Procedure: ? Colonoscopy Indications: ? Change in bowel habits Providers: ? Criss Laguerre MD, Betzy Whitmore, ? RN, Unruly Leavitt, Loss Control Consultant Referring MD: ?Criss Youssef MD, Elbert Mcdaniel [...] (10/03/2013 10:08 AM EDT) UPPER GI ENDOSCOPY [facility] Patient Name: Jessica Epstein ? Procedure Date: 10/03/2013 10:08 AM ? Date of : 1970 ? Age: 43 ? Order #: [id number] ? Procedure: ? Upper GI endoscopy Indications: ? Dysphagia Providers: ? Criss Laguerre MD, Betzy Whitmore, ? RN, Unruly Leavitt, Loss Control Consultant Referring : ?Criss Youssef MD, Elbert Mcdainel MD Medicines: ? Fentanyl 100 micrograms IV, [...] RN) documented in this encounter Care Teams Assistant Restaurant General Manager Relationship Specialty Start Date End Date Criss Youssef MD [address] [place] [address] PCP - General 09/01/13 documented as of this encounter
--- OUTSIDE RECORDS SUMMARY | 2024-03-17 14:29 | XMS_ITS | Encounter Summary ---
Author Organization [facility] Address [address] [place] [address] Care Team Providers Care E Business Project Manager Name Role Phone Unavailable Primary Care Provider Unavailabl e Encounter Details Date Type Department Care Team (Late st Contact Info) Description 08/03/2001 Results Only [facility] - Maple conversion [address] [place] [address] Vladislav Lemon MD [address] [place] [address] Social History Tobacco Use Types [...] ? JESSICA EPSTEIN ? Accession #: ? [id number] ? : ? 1970 (Age: 31) ??F [...] occupy approximately 50% of the ovarian parenchyma. ??Brand Communications Manager sections are submitted as follows: BLOCK VELAZQUEZ B1 ?Anterior cervix B2 ?Posterior cervix B3, B4 ?Anterior endomyometrium B5, B6 ?Posterior endomyometrium B7 ?Posterior lower uterine segment serosa B8 ?Brand Communications Manager right fallopian tube B9-B11 ?Brand Communications Manager right ovary (Poncho Lobo)/[facility] End of Report SASKIA SANCHEZ 08/03/2001 08/03/2001 14: 10 EST us Vladislav Lemon MD PATHOLOGY ORDERABLES Final Resul t [facility] [address] [place] [address] documented in this encounter Visit Diagnoses Not on filedocumented in this encounter
--- OUTSIDE RECORDS SUMMARY | 2024-03-17 14:29 | XMS_ITS | Encounter Summary ---
Author Organization [facility] [place] [address] Care Team Providers Care Childcare Attendant Name Role Phone Long Youssef MD Primary Care Provider [phone] Encounter Details Date Type Department Care Team (Late st Contact Info) Description 09/05/2013 [place] [address] Monty Bowman MD [facility] [place] [address] Social History Tobacco Use Types Packs/Day Years Used Date Smoking Tobacco: Never Assessed Sex and Gender Information Value Date Recorded Sex Assigned at Not on file Gender Identity Not on file Sexual Orientation Not on file documented as of this encounter Plan of Treatment Not on file documented as of this encounter Visit Diagnoses Not on filedocumented in this encounter Care Teams Childcare Attendant Relationship Specialty Start Date End Date Long Youssef MD [address] [place] [address] PCP - General 09/01/13 documented as of this encounter
--- OUTSIDE RECORDS SUMMARY | 2024-03-17 14:29 | XMS_ITS | Encounter Summary ---
Author Organization [facility] [place] [address] Care Team Providers Care Dredge Engineer Name Role Phone Criss Jernigan MD Primary Care Provider [phone] Reason for Visit * Reason Comments Dysphagia Encounter Details Date Type Department Care Team (Late st Contact Info) Description 10/05/2013 9:15 AM EDT Office [place] [address] Raisa Vargas APRN [facility] [place] [address] Chronic rhinitis (Primary Dx) Discharge Disposition: Home [...] Visit: 10/05/2013 Location of Visit: Otolaryngology Clinic, [facility] Patient: Christiana Nagel ([id number] ; 1970 Primary Care Provider: CRISS JERNIGAN [...] ENDOSCOPY performed by Criss Laguerre MD at [facility] ENDOSCOPY ??? Colonoscopy, diagnostic 10/03/2013 COLONOSCOPY, DIAGNOSTIC performed by Criss Laguerre MD at [facility] ENDOSCOPY Medications: Current Outpatient Prescriptions on File Prior to Visit Medication Sig Dispense Refill ??? acetaminophen (TYLENOL) 325 mg tablet Take 650 mg by mouth every 4 hours as needed. Allergies: Demerol; Codeine phosphate; Meperidine hcl; and Penicillins Social History: Christiana Nagel lives in [facility] [address] . She does smoke 1 pack/day x [...] to the clinic as needed. Raisa RAY [place], [place] [address] Office documented in this encounter Plan of Treatment Not on file documented as of this encounter Visit Diagnoses Diagnosis Chronic rhinitis- Primary documented in this encounter Care Teams Dredge Engineer Relationship Specialty Start Date End Date Criss Jeringan MD [address] [place] [address] [address] [facility] [address] [place] [address] PCP - General 09/01/13 documented as of this encounter
--- OUTSIDE RECORDS SUMMARY | 2024-03-17 14:29 | XMS_ITS | Encounter Summary ---
Author Organization [facility] Address [facility] [place] [address] Care Team Providers Care Manager Air Name Role Phone Long Youssef MD Primary Care Provider [phone] Encounter Details Date Type Department Care Team (Latest Contact Info) Description 10/05/2013 10:12 AM EDT - 10/05/2013 11:59 PM EDT Hospital Encounter MRI at [facility] [place] [address] CLINIC, Monty Wade MD [facility] [place] [address] Abdominal pain, periumbilical Discharge Disposition: Home Social [...] mLs documented in this encounter Care Teams Manager Air Relationship Specialty Start Date End Date Long Youssef MD [address] [place] [address] PCP - General 09/01/13 documented as of this encounter
--- OUTSIDE RECORDS SUMMARY | 2024-03-17 14:29 | XMS_ITS | Encounter Summary ---
Author Organization [facility] Address [address] [place] [address] Care Team Providers Care Resistor Coater Name Role Phone Unavailable Primary Care Provider Unavailabl e Encounter Details Date Type Department Care Team (Late st Contact Info) Description 08/03/2000 Results Only [facility] - Maple conversion [address] [place] [address] Vladislav Lemon MD [address] [place] [address] Social History Tobacco Use Types [...] ? JESSICA EPSTEIN ? Accession #: ? [id number] ? : ? 1970 (Age: 30) ??F [...] identified. Document reviewed and electronically signed by: LSELIE YEAGER MD Report ??Date: 08/06/2000 15:34 By [...] SASKIA SANCHEZ 08/03/2000 08/05/2000 8:5 9 EDT us Vladislav Lemon MD PATHOLOGY ORDERABLES Final Resul t [facility] [address] [place] [address] documented in this encounter Visit Diagnoses Not on filedocumented in this encounter
--- OUTSIDE RECORDS SUMMARY | 2024-03-17 14:29 | XMS_ITS | Encounter Summary ---
Author Organization [facility] Address [address] [place] [address] Care Team Providers Care Machine Builder Name Role Phone Hermilo Pugh DO Primary Care Provider [phone] Toan Johnson Primary Care Provider [phone] Encounter Details Date Type Department Care Team (Late st Contact Info) Description 04/16/2020 Lab Requisition [facility] Pathology & Laboratory Medicine - [address] [id number] Outr Resulting Lab, Provider Social History Tobacco [...] Priority Date/Time Associated Diagnosis Comments ZZCOVID-19 TEST [facility] PCR Today 04/16/2020 9:05 EST COVID-19 TESTING Routine 04/16/2020 9:05 EST documented in this encounter Results * COVID-19 TEST [facility] PCR (04/16/2020 9:05 EST) Swab ENTIRE NASOPHARYNX / Unknown 04/16/2020 9:05 EST 04/16/2020 15:37 EST us Provider Outr Resulting Lab MICROBIOLOGY - GENER AL ORDERABLES Final Result [facility] [address] [place] [address] * COVID-19 TESTING (04/16/2020 9:05 EST) COVID-19 rt-PCR Result Negative Negative 04/17/2020 17:25 EST [facility] Comment: Negative results do not preclude 2019-nCoV infection and should not be used as the sole basis for treatment or other patient management decisions. Negative results must be combined with clinical observations, patient history, and epidemiological information. This test was developed and its performance characteristics determined by [facility]. It has not been cleared or [...] defined by the FDA Performed on the Closelyo 7 Flex. Performing Lab Quantstud[employer] 7 [facility] 04/17/2020 17:25 EST [facility] Swab 04/16/2020 9:05 EST 04/16/2020 15:37 EST us Provider Outr Resulting Lab MICROBIOLOGY - GENER AL ORDERABLES Final Result [facility] [address] [place] [address] documented in this encounter Visit Diagnoses Not on filedocumented in this encounter Care Teams Machine Builder Relationship Specialty Start Date End Date Hermilo Pugh DO [address] [place] [address] PCP - General 09/03/12 04/18/20 Toan Johnson [address] [place] [id number] PCP - General Family Medicine - [facility] Medicine 04/19/20 documented as of this encounter
--- OUTSIDE RECORDS SUMMARY | 2024-03-17 14:29 | XMS_ITS | Encounter Summary ---
Author Organization [facility] Address [address] [place] [address] Care Team Providers Care Airline Station Agent Name Role Phone Unavailable Primary Care Provider Unavailabl e Encounter Details Date Type Department Care Team (Late st Contact Info) Description 03/24/2005 Office Visit [facility] - Maple conversion [address] [place], [place] [address] Connor Kenny, EARLE-C [address] [facility] [place] [address] Social History Tobacco Use Types Packs/Day Years Used Date Smoking Tobacco: Never Assessed Comments Unknown Sex and Gender Information Value Date Recorded Sex Assigned at Not on file Legal Sex Female 18:12 EST Gender Identity Not on file Sexual Orientation Not on file documented as of this encounter Progress Notes * Connor Kenny Jr., PA - 07/04/2009 0423 EST Department - Physician [...] mg tablets. No refill (take according to [facility] protocol [facility] 15, to be filled by [facility] staff only). Follow-up: Follow up with your doctor as needed. (Electronically signed by Bhavna Lora 03/24/2005 18:52) Addenda for CHRISTIANA EPSTEIN VisitID: [id number] Date: 03/24/2005 03/24/2005 16:11 [facility] REFERS [...] Skin intact. Skin is warm and dry. --163 Liza Read R.N. NURSING PROGRESS NOTES Progress [...] Patient verbalized understanding. Written instructions provided in Georgian. The patient was discharged ([facility]) and unaccompanied at time of discharge. The patient left the Emergency Department ambulatory and via taxi. --165 Krys Petersen R.N., Francesca Berriman R.N. Locked/Released at 03/24/2005 16:50 by Talia Palmer R.N. documented in this encounter Plan of Treatment Not on file documented as of this encounter Visit Diagnoses Not on filedocumented in this encounter
--- OUTSIDE RECORDS SUMMARY | 2024-03-17 14:29 | XMS_ITS | Encounter Summary ---
Author Organization [facility] Address [address] [place] [address] Care Team Providers Care Automobile Racer Name Role Phone Unavailable Primary Care Provider Unavailabl e Encounter Details Date Type Department Care Team (Late st Contact Info) Description 07/15/2002 Results Only [facility] - Maple conversion [address] [place] [address] [facility] [address] [place] [address] Social History Tobacco Use Types [...] ? JESSICA EPSTEIN ? Accession #: ? [id number] : ? 1970 (Age: 32) ??F ?Collect Date: ? 07/15/2002 Location: ? [facility] ? Receive Date: ? 07/18/2002 Provider: ?JULIA BRANCH WINDOWS 7 DEPLOYMENT LEAD Copy to: ? Specimen/Source: ?ThinPrep Pap Test, [...] End of Report SASKIA SANCHEZ 07/15/2002 07/18/2002 us Julia Branch WINDOWS 7 DEPLOYMENT LEAD PATHOLOGY ORDERABLES Final R esult SASKIA SANCHEZ [address] [place] [address] documented in this encounter Visit Diagnoses Not on filedocumented in this encounter
--- OUTSIDE RECORDS SUMMARY | 2024-03-17 14:29 | XMS_ITS | Encounter Summary ---
Author Organization [facility] Address [address] [place] [address] Care Team Providers Care Satellite Communications Operator Name Role Phone Unavailable Primary Care Provider Unavailabl e Encounter Details Date Type Department Care Team (Late st Contact Info) Description 06/09/2000 Results Only [facility] - Maple conversion [address] [place] [address] [facility] [address] [place] [address] Social History Tobacco Use Types [...] ? JESSICA EPSTEIN ? Accession #: ? [id number] : ? 1970 (Age: 30) ??F ?Collect Date: ? 06/09/2000 Location: ? [facility] ? Receive Date: ? 06/10/2000 Provider: ?JULIA BRANCH HORTICULTURE SUPERVISOR Copy to: ? Specimen/Source: ?ThinPrep Pap Test, Cervix/Endocervix Last Menstrual Period: ? 05/18/00 Previous Gynecologic Pathology: ? Benign cellular changes: Treatment History: ? Cryotherapy: 1992, WNL since. ? SPECIMEN ADEQUACY ? Satisfactory for evaluation. GENERAL CATEGORIZATION ? Within Normal Limits ? Document reviewed and electronically signed by: ? AMADOU Hernandez(ASCP) ? Report Date: ??06/10/2000 12:46 End of Report SASKIA SANCHEZ 06/09/2000 06/10/2000 us Julia Branch HORTICULTURE SUPERVISOR PATHOLOGY ORDERABLES Final R esult SASKIA SANCHEZ [address] [place] [address] documented in this encounter Visit Diagnoses Not on filedocumented in this encounter
--- OUTSIDE RECORDS SUMMARY | 2024-03-17 14:29 | XMS_ITS | Encounter Summary ---
Author Organization [facility] Address [address] [place] [address] Care Team Providers Care Supervisor Fitting Name Role Phone Unavailable Primary Care Provider Unavailabl e Encounter Details Date Type Department Care Team (Late st Contact Info) Description 06/05/2003 Results Only [facility] - Maple conversion [address] [place] [address] Vladislav Lemon MD [address] [place] [address] Social History Tobacco Use Types [...] ? JESSICA EPSTEIN ? Accession #: ? [id number] ? : ? 1970 (Age: 33) ??F [...] x 0.5 x 0.3 cm corpus luteum. ??Director Payment sections are submitted as follows: BLOCK VELAZQUEZ A1 ?Fallopian tube and adjacent paratubal cyst A2 ?Director Payment hemorrhagic cyst with adjacent ovary A3 ?Additional utility sales representative section hemorrhagic cyst (Dr. Wu-JS)/[facility] End of Report SASKIA SANCHEZ 06/05/2003 06/06/2003 15: 32 EST us Vladislav Lemon MD PATHOLOGY ORDERABLES Final Resul t [facility] [address] [place] [address] documented in this encounter Visit Diagnoses Not on filedocumented in this encounter
--- OUTSIDE RECORDS SUMMARY | 2024-03-17 14:29 | XMS_ITS | Encounter Summary ---
Author Organization [facility] Address [address] [place] [address] Care Team Providers Care Restaurant Supervisor Name Role Phone Unavailable Primary Care Provider Unavailabl e Encounter Details Date Type Department Care Team (Latest Contact Info) Description 03/24/2005 16:11 EST Hospital Encounter [facility] Emergency Department - [facility] [address] [place] [address] Emergency, Default, MD Discharge Disposition: [...]
--- OUTSIDE RECORDS SUMMARY | 2024-03-17 14:29 | XMS_ITS | Referral Summary ---
Author Organization [facility] Address [address] [place] [address] Care Team Providers Care Healthcare Administrative Assistant Name Role Phone Toan Johnson Primary Care Provider [phone] Social History Tobacco Use Types Packs/Day Years Used Date Smoking Tobacco: Never Assessed Comments Unknown Sex and Gender Information Value Date Recorded Sex Assigned at Not on file Legal Sex Female 18:12 EST Gender Identity Not on file Sexual Orientation Not on file Plan of Treatment Not on file Care Teams Healthcare Administrative Assistant Relationship Specialty Start Date End Date Toan Johnson [address] [place] [phone] PCP - General Family Medicine - [facility] 04/19/20
--- OUTSIDE RECORDS SUMMARY | 2024-03-17 14:29 | XMS_ITS | Encounter Summary ---
Author Organization Formerly [facility] Address [facility] [place] [address] Care Team Providers Care Equipment Mechanic Specialist Name Role Phone Criss Yosusef MD Primary Care Provider [phone] Encounter Details Date Type Department Care Team (Latest Contact Info) Description 10/03/2013 9:49 AM EDT - 10/03/2013 6:37 PM EDT Hospital En[place] [address] Monty Bowman MD [facility] [place] [address] Criss Laguerre MD [facility] [place] [address] Discharge Disposition: Home Social History Tobacco Use [...] you need to be checked. Thursday-Thursday Clinic [phone] 8a-5p Same Day Endo [phone] 7a-8p Otherwise contact [phone] and ask to speak to the loan inspector managed services sales consultant Follow up care is a luong part [...] not get better as expected. Thursday-Thursday Clinic [phone] 8a-5p Same Day Endo [phone] 7a-8p Otherwise contact [phone] and ask to speak to the loan inspector managed services sales consultant Follow-up care is a luong part of [...] (10/03/2013 11:09 AM EDT) Final Diagnosis ? [facility] ? Provider: ?? CRISS LAGUERRE ?Pt. Name: [...] - Labeled/Fixativ e: Cecal polyp, formalin. ? [facility] ? Provider: ?? CRISS LAGUERRE ?Pt. Name: [...] MD PATHOLOGY/CYTOLOGY O SKYLA Performing Organization Address [facility]/ZIP Co de Phone Number [facility] [address] * Specimen to Pathology (surgical or derm) (10/03/2013 11:09 AM EDT) AP Specimen 10/03/2013 11:0 9 AM EDT 10/03/2013 11:09 AM EDT Narrative MARITA GUNTER - 10/03/2013 11:09 AM EDT Specimen requisition ordered. ??Separate Pathology report to follow Criss Laguerre MD PATHOLOGY/CYTOLOGY O SKYLA [facility] * Specimen to Pathology (surgical or derm) [...] MD PATHOLOGY/CYTOLOGY O SKYLA Performing Organization Address [facility]/ZIP Co de Phone Number MARITA GUNTER * Specimen to Pathology (surgical or derm) (10/03/2013 11:09 AM EDT) AP Specimen 10/03/2013 11:0 9 AM EDT 10/03/2013 11:09 AM EDT Narrative MARITA GUNTER - 10/03/2013 11:09 AM EDT Specimen requisition ordered. ??Separate Pathology report to follow Criss Laguerre MD PATHOLOGY/CYTOLOGY O SKYLA Performing Organization Address [facility] Co de Phone Number MARITA GUNTER * Specimen to Pathology (surgical or derm) (10/03/2013 11:09 AM EDT) AP Specimen 10/03/2013 11:0 9 AM EDT 10/03/2013 11:09 AM EDT Narrative MARITA GUNTER - 10/03/2013 11:09 AM EDT Specimen requisition ordered. ??Separate Pathology report to follow Criss Laguerre MD PATHOLOGY/CYTOLOGY O SKYLA MARITA GUNTER * COLONOSCOPY (10/03/2013 10:09 AM EDT) COLONOSCOPY [facility] Endoscopy ___ Patient Name: Jessica Nagel ? Procedure Date: 10/03/2013 10:09 AM ? Date of : 1970 ? Age: 43 ? Order #: [id number] ? ___ Procedure: ? Colonoscopy Indications: ? Change in bowel habits Providers: ? Criss Laguerre MD, Betzy Whitmore, ? RN, Unruly Leavitt, District Attorney Referring : ?Criss Youssef MD, Elbert Mcdaniel [...] GI ENDOSCOPY (10/03/2013 10:08 AM EDT) Pathologist [facility] UPPER GI ENDOSCOPY [facility] Endoscopy Patient Name: Jessica Nagel ? Procedure Date: 10/03/2013 10:08 AM ? Date of : 1970 ? Age: 43 ? Order #: [id number] ? Procedure: ? Upper GI endoscopy Indications: ? Dysphagia Providers: ? Criss Laguerre MD, Betzy Whitmore, ? GARCIA, Unruly Leavitt, District Attorney Referring MD: ?Criss Youssef MD, Elbert Mcdaniel [...] Routine 1020 (Given - Provid er: Betzy Wihtmore RN)1037 (Given - Provider: Betzy Whitmore RN) [...] RN) documented in this encounter Care Teams Equipment Mechanic Specialist Relationship Specialty Start Date End Date Criss Youssef MD [address] [place] [address] PCP - General 09/01/13 documented as of this encounter
--- OUTSIDE RECORDS SUMMARY | 2024-03-17 14:30 | XMS_ITS | Encounter Summary ---
Author Organization [facility] [place] [address] Care Team Providers Care Data Recovery Planner Name Role Phone Long Youssef MD Primary Care Provider [phone] Reason for Referral * Consultation (Routine) - Closed Specialty Diagnoses / Procedures Referred By Irving emery Referred To Contact Otolaryngology Diagnoses Globus sensation Elbert Mcdaniel APRN [facility] [place]STRO[place] [address] [facility] Otolaryngology [address] [place] [phone] Referral ID Status Reason Start Date Expiration Date V isits Requested Visits Authorized [id number] Closed Consult, Test & Treat 09/05/2013 03/04/2014 1 1 Reason for Visit * Reason Comments GI Problem Encounter Details Date Type Department Care Team (Late st Contact Info) Description 09/05/2013 8:00 AM EDT Office [place] [phone] Elbert Mcdaniel [facility] [place]STRO[place] [address] Change in bowel habits; Abdominal [...] AM EDT Section of Gastroenterology and Hepatology [address] [place], [place] [id number] .Christiana Fullers : 1970 Patient is here [...] remove adhesions. The procedures were done at [facility]. These sensations are located around the umbilical [...] factors documented in this encounter Care Teams Data Recovery Planner Relationship Specialty Start Date End Date Long Youssef MD [address] [address] PCP - General 09/01/13 documented as of this encounter
[2024-03-17] MEDS: ACETAMINOPHEN 1,000 MG/100 ML BAG 400 MG IVPB (15:04)
--- NOTE | 2024-03-17 15:12 | W.ED.GENAD ---
Discharge Plan Disposition Patient Disposition: Home Condition: Stable Discharge Details Clinical Impression: Acute flank pain, UTI (urinary tract infection) Primary Care Provider: Unknown,Unknown ED Provider: Derrick Peguero Home Meds and New Rx's Prescriptions: New nitrofurantoin monohyd/m-cryst [Macrobid] 100 mg capsule 100 mg PO BID 5 Days Qty: 10 0RF Rx Instructions: must administer with a meal/food ondansetron 4 mg tablet,disintegrating 4 mg PO Q8H PRN (Reason: nausea and vomiting) Qty: 14 0RF No Action ibuprofen 200 mg capsule 200 mg PO Q6H PRN Discharge Instructions Instructions: Flank Pain ED Additional Instructions: Your CT scans did not reveal a kidney stone, but your urinalysis was concerning for a possible stone that has recently passed Given your symptoms and the appearance of your urinalysis, will treat for the signs of infection that are also apparent. Please start the antibiotic as prescribed Continue Motrin and Tylenol as needed for pain Discharge Data Discharge Date/Time-TO BE ENTERED AT DEPARTURE: 03/17/24 16:16 HPI General Date/Time Provider Initiated Documentation: 03/17/24 14:26. Limitations to Documentation: no limitations. Information obtained by: patient. HPI Narrative: 53-year-old female with past medical history of renal stone presents for evaluation of left flank pain. She reports that symptoms started 1 week ago. She states this started is being very mild but over the last 48 hours she states that her symptoms have been severe. It is a throbbing pain waxing and waning in severity. She reports that the pain starts in her left back and radiates around to the left groin. She reports urinary hesitancy, urgency and frequency. Denies any hematuria or dysuria. Denies any fever. Denies any nausea or vomiting. The patient reports that she has had pain similar to this in the past that was due to a kidney stone. She states that she has been taking Tylenol, doing lidocaine patch and heating pad without improvement in her symptoms. Related Data Home Medications ?Medication ?Instructions ?Recorded ?Confirmed ibuprofen 200 mg capsule 200 mg PO Q6H PRN 04/02/20 01/18/24 nitrofurantoin 100 mg PO BID 5 days #10 caps 03/17/24 monohydrate/macrocrystals 100 mg capsule (Macrobid) ondansetron 4 mg disintegrating 4 mg PO Q8H PRN nausea and 03/17/24 tablet vomiting #14 tabs Previous Rx's ?Medication ?Instructions ?Recorded nitrofurantoin 100 mg PO BID 5 days #10 caps 03/17/24 monohydrate/macrocrystals 100 mg capsule (Macrobid) ondansetron 4 mg disintegrating 4 mg PO Q8H PRN nausea and 03/17/24 tablet vomiting #14 tabs Allergies Allergy/AdvReac Type Severity Reaction Status Date / Time Penicillins Allergy Intermediate facial Verified 01/18/24 12:31 swelling tramadol AdvReac Intermediate jessica Verified 01/18/24 12:31 codeine AdvReac Mild Skin Rash Verified 01/18/24 12:31 ketorolac tromethamine (From AdvReac Mild Skin Rash Verified 01/18/24 12:31 Toradol) meperidine AdvReac Mild skin crawls Verified 01/18/24 12:31 General Stated Complaint: Urinary RALPH: 3 Exam Narrative Exam Narrative: Review of Systems: All systems reviewed & are unremarkable except as noted in HPI and below Well-developed, appears uncomfortable NCAT RRR Unlabored respiratory effort Nondistended abdomen , soft nontender No CVA tenderness No rash Course Vital Signs Vital signs: Vital Signs Temperature 36.6 C 03/17/24 14:21 Pulse 92 H 03/17/24 14:21 Respiratory Rate 30 H 03/17/24 14:21 Blood Pressure 132/82 03/17/24 14:21 Pulse Oximetry 97 03/17/24 14: Temperature 36.6 C 03/17/24 14:24 Pulse 92 H 03/17/24 14:24 Respiratory Rate 30 H 03/17/24 14:24 Respiratory Effort Normal 03/17/24 14:24 Blood Pressure 132/82 03/17/24 14:24 Blood Pressure Position Sitting 03/17/24 14:24 Pulse Oximetry 97 03/17/24 14:24 Oxygen Delivery Method Room Air 03/17/24 14: Oxygen Flow Rate 0 03/17/24 14:24 Pain Level 10 03/17/24 14:21 Medical Decision Making Emergent evaluation of left flank pain. Initial differential includes renal stone, UTI, pyelonephritis, muscle strain. Patient reports some urinary symptoms in addition to her pain and does have a history of kidney stone. Plan for lab work including renal function testing, urinalysis and CT. Lab work reviewed. There is no leukocytosis or anemia. There is no significant electrolyte derangement. Her renal function is within normal limits. Her urinalysis does reveal blood and some very minor signs of infection including trace leukocytes and moderate bacteria. A culture has been sent. Her CT imaging does not reveal a kidney stone. My suspicion based on the urinalysis is that she was recently passed a stone. Given her symptoms and the appearance of her urinalysis I we will cover with antibiotics. A prescription for Macrobid was sent to the pharmacy as well as some Zofran. Recommend continued Motrin and Tylenol as needed for pain. Return precautions advised. Quality:[facility] Health Related Social Needs: No Data to Display [facility] All Active Problems (Updated 03/17/24 @ 16:08 by Derrick Peguero MD) UTI (urinary tract infection) (Acute) Acute flank pain (Acute) Left hip pain (Acute) Erosive gastritis (Acute) Hiatal hernia with GERD (Acute) Colon cancer screening (Acute) Diabetes mellitus screening (Acute) Screening cholesterol level (Acute) Hypotension (Acute) Renal calculi (Chronic) Multiple renal calculi (Acute) Hematuria (Acute) Smoker unmotivated to quit (Acute) Abnormal CT of the abdomen (Acute) Adenomatous colon polyp (Acute) 2013 [facility] Hx of renal calculi (Acute) Medical History History of esophageal reflux Esophagitis Surgical History History of colonoscopy (~04/19/20) Stoiber, Normal History of esophagogastroduodenoscopy (EGD) (~04/19/20) Tonsillectomy (~1999) Repair, ACL (~1990) Oophrectomy, Left Vaginal hysterectomy removed right ovary Colonoscopy - [facility] 10/03/13; [facility] Family History Mother Breast cancer at 70 after recurrence Diabetes Heart disease Brother Thyroid disorder Social History Smoking/Tobacco Use Status: Current every day Tobacco Type: cigarettes Smoking risk assessment performed?: Yes Alcohol Intake: former Drug use: Daily Substance use type: marijuana Details: Last used @ 0100 per pt. -BR Housing: house Do you feel safe at home: Yes Do you feel safe in your relationship?: Yes
[2024-03-17 15:24] LABS: Anion Gap 7.7 mmol/L (3-11); BUN 17 mg/dL (7-18); CO2 30.3 mmol/L (21.0-32.0); CREATININE 0.9 mg/dL (0.55-1.02); Calcium 9.7 mg/dL (8.5-10.1); Chloride 104 mmol/L (98-107); Estimated GFR 76.92 (mL/min/1.73m2); Glucose 95 mg/dL (74-106); Potassium 4.1 mmol/L (3.5-5.1); Sodium 142 mmol/L (136-145)
[2024-03-17 15:25] LABS: Abs Immature Grans 0.02 10^3/uL (0.0-0.06); Absolute Basophil Count 0.08 10^3/uL (0.0-0.2); Absolute Eosinophil Count 0.21 10^3/uL (0.0-0.7); Absolute Lymphocyte Count 3.13 10^3/uL (1.2-3.4); Absolute Monocyte Count 0.51 10^3/uL (0.1-0.8); Absolute Neutrophil Count 4.22 10^3/uL (1.2-6.7); Eosinophils % 2.6 %; HCT 37.2 % (36.0-46.0); Immature Grans % 0.2 %; Lymphocytes % 38.3 %; MCH 30.6 pg (27.0-33.0); MCHC 32.3 % (32.0-36.0); MCV 95 fL (80-95); MPV 10.9 fL (8.0-11.0); Monocytes % 6.2 %; Neutrophils % 51.7 %; Platelet Count 206 10^3/uL (130-400); RBC 3.92 10^6/uL (3.93-5.22); RDW 12.8 % (11.7-14.6); RDW-SD 44.3 fL; WBC 8.17 10^3/uL (4.4-10.8)
--- NOTE | 2024-03-17 15:30 | DI.CT_ITS ---
Exam(s) CT RENAL COLIC WO EXAM: CT RENAL COLIC WO CLINICAL HISTORY: flank pain. TECHNIQUE: Imaging Protocol: Axial computed tomography images with coronal and sagittal reformatted images were created and reviewed. COMPARISON: CT CT ABDOMEN PELVIS W from 01/18/2024 FINDINGS: ABDOMEN: Lung Bases: Normal where visualized. Liver: Normal density. No measurable mass. Gallbladder and biliary tract: No radiodense calculus or biliary ductal dilation. Pancreas: Normal density, no abnormal calcifications or inflammatory process. Spleen: Normal. Kidneys: Normal size, contour and axis.No radiodense stones or obstructive uropathy. No masses seen. The calcifications seen in the pelvis are previously shown to represent vascular calcifications. No ureteral calculi are identified. Adrenal glands: No mass is seen. Lymph nodes: Within normal limits. Abdominal Aorta: Abdominal portion non-dilated. Atherosclerotic calcification is present. PELVIS: Bladder:Urinary bladder is incompletely distended but grossly unremarkable. Bowel: No obstruction or bowel wall thickening. Appendix is unremarkable. Peritoneal cavity: No ascites, collection or mesenteric inflammatory response. No free air. Reproductive organs: Status post hysterectomy. Bones: Within normal limits. Soft Tissues: Within normal limits. IMPRESSION: 1. No evidence of nephrolithiasis or hydronephrosis. 2. No acute abdominal or pelvic process. RADIATION DOSE DELIVERED: 269.47mGy.cm Total DLP DATA REPOSITORY: All CT scans at this facility are submitted to the National Radiology Data Registry (NRDR) Dose Index Registry (DIR) with the [employer] (ACR). RADIATION OPTIMIZATION: All CT scans at this facility use at least one of these dose optimization te chniques: automated exposure control; mA and/or kV adjustment per patient size (includes targeted exa ms where dose is matched to clinical indication); or iterative reconstruction.
[2024-03-17 15:35] LABS: Bilirubin Negative (Negative); Blood Moderate (Negative); Clarity Clear (Clear); Glucose Negative (Negative); Ketones Trace mg/dL (Negative); Leukocyte Esterase Trace (Negative); Nitrite Negative (Negative); Specific Gravity >= 1.030 (1.005-1.025); Urobilinogen 0.2 mg/dL (Up to 0.2); pH 5.5 (5-8)
[2024-03-17 15:48] LABS: Bacteria Moderate HPF (Negative); C & S Indicated? Yes; Casts Negative LPF (Negative); Crystals Negative HPF (Negative); Epithelial Cells Rare HPF (Negative); Mucus Heavy (Negative)
== END 2024-03-17 16:16 | disposition home or self-care (01) ==
PROVIDERS: Emergency Provider Emergency Medicine
DX: R10.9 Unspecified abdominal pain (principal); N39.0 Urinary tract infection, site not specified; F17.210 Nicotine dependence, cigarettes, uncomplicated
CPT/HCPCS: 80048; 96365; 99284; 74176; 81003; 81015; 85025; 87086; J0131

== ENCOUNTER 2024-03-21 12:06 | Outpatient (CLI) | payer MEDICAID, SELFPAY ==
--- OUTSIDE RECORDS SUMMARY | 2024-03-21 12:07 | XMS_ITS | Referral Summary ---
Author Organization [facility] Address [address] [place] [address] Care Team Providers Care Heel Lining Paster Name Role Phone Toan Johnson Primary Care Provider [phone] Social History Tobacco Use Types Packs/Day Years Used Date Smoking Tobacco: Never Assessed Comments Unknown Sex and Gender Information Value Date Recorded Sex Assigned at Not on file Legal Sex Female 18:12 EST Gender Identity Not on file Sexual Orientation Not on file Plan of Treatment Not on file Care Teams Heel Lining Paster Relationship Specialty Start Date End Date Toan Johnson [address] [place] [phone] PCP - General Family Medicine - [facility] Medicine 04/19/20
--- OUTSIDE RECORDS SUMMARY | 2024-03-21 12:07 | XMS_ITS | Clinical Summary ---
Author Organization [facility] Address [address] [place] [address] Care Team Providers Care Director Of Manufacturing Name Role Phone Toan Johnson Primary Care Provider [phone] Social History Tobacco Use Types Packs/Day Years [...] - 19+ 3-dose series) 05/21 COVID-19 Vaccine ( season) 2024 Care Teams Director Of Manufacturing Relationship Specialty Start Date End Date Toan Johnson [address] [place] [phone] PCP - General Family Medicine - [facility] Medicine 04/19/20
--- OUTSIDE RECORDS SUMMARY | 2024-03-21 12:08 | XMS_ITS | Encounter Summary ---
Author Organization [facility] Address [address] [place] [address] Care Team Providers Care Weigh Boss Name Role Phone Unavailable Primary Care Provider Unavailabl e Encounter Details Date Type Department Care Team (Late st Contact Info) Description 08/03/2001 Results Only [facility] [address] [place] [address] Vladislav Lemon MD [address] [place] [address] Social History Tobacco Use Types [...] ? JESSICA EPSTEIN ? Accession #: ? [id number] ? : ? 1970 (Age: 31) ??F [...] occupy approximately 50% of the ovarian parenchyma. ??Waiter And Cashier sections are submitted as follows: BLOCK VELAZQUEZ B1 ?Anterior cervix B2 ?Posterior cervix B3, B4 ?Anterior endomyometrium B5, B6 ?Posterior endomyometrium B7 ?Posterior lower uterine segment serosa B8 ?Waiter And Cashier right fallopian tube B9-B11 ?Waiter And Cashier right ovary (Poncho Lobo)/[facility] End of Report ASSKIA SANCHEZ 08/03/2001 08/03/2001 14: 10 EST us Vladislav Lemon MD PATHOLOGY ORDERABLES Final Resul t [facility] [address] [place] [address] documented in this encounter Visit Diagnoses Not on filedocumented in this encounter
--- OUTSIDE RECORDS SUMMARY | 2024-03-21 12:08 | XMS_ITS | Encounter Summary ---
Author Organization [facility] [place] [address] Care Team Providers Care Treadle Cut Off Saw Operator Name Role Phone Long Youssef MD Primary Care Provider [phone] Reason for Referral * Consultation (Routine) - Closed Specialty Diagnoses / Procedures Referred By Irving emery Referred To Contact Otolaryngology Diagnoses Globus sensation Elbert Mcdaniel APRN [facility] [place] [address] [facility] Otolaryngology [address] [place] [phone] Referral ID Status Reason Start Date Expiration Date V isits Requested Visits Authorized [id number] Closed Consult, Test & Treat 09/05/2013 03/04/2014 1 1 Reason for Visit * Reason Comments GI Problem Encounter Details Date Type Department Care Team (Late st Contact Info) Description 09/05/2013 8:00 AM EDT Office Visit [place] [phone] Elbert Mcdaniel [facility] [place] [address] Change in bowel habits; Abdominal [...] AM EDT Section of Gastroenterology and Hepatology [address] [place], [place] [id number] .Christiana Fullers : 1970 Patient is here [...] remove adhesions. The procedures were done at [facility]. These sensations are located around the umbilical [...] factors documented in this encounter Care Teams Treadle Cut Off Saw Operator Relationship Specialty Start Date End Date Long Youssef MD [address] [address] PCP - General 09/01/13 documented as of this encounter
--- OUTSIDE RECORDS SUMMARY | 2024-03-21 12:08 | XMS_ITS | Encounter Summary ---
Author Organization [facility] Address [address] [place] [address] Care Team Providers Care Software Architect Name Role Phone Hermilo Pugh DO Primary Care Provider [phone] Toan Johnson Primary Care Provider [phone] Encounter Details Date Type Department Care Team (Late st Contact Info) Description 04/16/2020 Lab Requisition [facility] Pathology & Laboratory Medicine - [address] [id number] Outr Resulting Lab, Provider Social History Tobacco [...] MICROBIOLOGY - GENER AL ORDERABLES Final Result [facility] [address] [place] [address] * COVID-19 TESTING (04/16/2020 9:05 EST) COVID-19 rt-PCR Result Negative Negative 04/17/2020 17:25 EST [facility] Comment: Negative results do not preclude 2019-nCoV infection and should not be used as the sole basis for treatment or other patient management decisions. Negative results must be combined with clinical observations, patient history, and epidemiological information. This test was developed and its performance characteristics determined by [facility]. It has not been cleared or [...] defined by the FDA Performed on the Gifio 7 Flex. Performing Lab Quantstudio 7 [facility] 04/17/2020 17:25 EST [facility] Swab 04/16/2020 9:05 EST 04/16/2020 15:37 EST us Provider Outr Resulting Lab MICROBIOLOGY - GENER AL ORDERABLES Final Result [facility] [address] [place] [address] documented in this encounter Visit Diagnoses Not on filedocumented in this encounter Care Teams Software Architect Relationship Specialty Start Date End Date Hermilo Pugh DO [address] [place] [address] PCP - General 09/03/12 04/18/20 Toan Johnson [address] [place] [phone] PCP - General Family Medicine - [facility] Medicine 04/19/20 documented as of this encounter
--- OUTSIDE RECORDS SUMMARY | 2024-03-21 12:08 | XMS_ITS | Encounter Summary ---
Author Organization [facility] [place] [address] Care Team Providers Care Home Economist Consumer Service Name Role Phone oLng Youssef MD Primary Care Provider [phone] Encounter Details Date Type Department Care Team (Late st Contact Info) Description 09/05/2013 [place] [address] Monty Bowman MD [facility] [place] [address] Social History Tobacco Use Types Packs/Day Years Used Date Smoking Tobacco: Never Assessed Sex and Gender Information Value Date Recorded Sex Assigned at Not on file Gender Identity Not on file Sexual Orientation Not on file documented as of this encounter Plan of Treatment Not on file documented as of this encounter Visit Diagnoses Not on filedocumented in this encounter Care Teams Home Economist Consumer Service Relationship Specialty Start Date End Date Long Youssef MD [address] [place] [address] PCP - General 09/01/13 documented as of this encounter
--- OUTSIDE RECORDS SUMMARY | 2024-03-21 12:08 | XMS_ITS | Encounter Summary ---
Author Organization [facility] Address [address] [place] [address] Care Team Providers Care Supervisor Sawing And Assembly Name Role Phone Unavailable Primary Care Provider Unavailabl e Encounter Details Date Type Department Care Team (Late st Contact Info) Description 08/31/2012 Results Only [facility] Laboratory Services - [facility] ([facility] [address] [place], [place] [id number] Murphy Vargas, DO [address] [facility] [address] [place] [address] Social History Tobacco Use Types [...] ? JESSICA EPSTEIN ? Accession #: ? [id number] ? : ? 1970 (Age: 42) ??F [...] clinical and endoscopic correlation is advised. ??(Dr. Wu)/[facility] Document reviewed and electronically signed by: VIKKI [...] 0.3 x 0.3 x 0.2 cm light duorn biopsy. ??The specimen is submitted intact as [...] ORDERABLES Fi nal Result Performing Organization Address City/State/[facility] Co de Phone Number [facility] [address] [place] [address] documented in this encounter Visit Diagnoses Not on filedocumented in this encounter
--- OUTSIDE RECORDS SUMMARY | 2024-03-21 12:08 | XMS_ITS | Clinical Summary ---
Author Organization [facility] Address [facility] [place] [address] Care Team Providers Care Tool Machine Setup Operator Name Role Phone Long Youssef MD Primary Care Provider [phone] Allergies Active Allergy Reactions Criticality Noted Date [...] Hepatitis B vaccine (0-59 yrs) (1) 1990 Tetanus/Diphtheria/Pertussis Vaccines (1 - Tdap) 1990 HPV test 2001 PAP Smear 2001 [...] * COLONOSCOPY (10/03/2013 10:09 AM EDT) COLONOSCOPY [facility] Endoscopy ___ Patient Name: Christiana Nagel ? Procedure Date: 10/03/2013 10:09 AM ? Date of : 1970 ? Age: 43 ? Order #: [id number] ? ___ Procedure: ? Colonoscopy Indications: ? Change in bowel habits Providers: ? Long Laguerre MD, Betzy Whitmore, ? RN, Unruly Leavitt, Solder Sprayer Referring MD: ?Long Youssef MD, Elbert Mcdaniel [...] EDT Long Youssef MD [facility] Last 3 Months or Most Recently Relevant to Health Maintenance Care Teams Tool Machine Setup Operator Relationship Specialty Start Date End Date Long Youssef MD [address] [place] [address] PCP - General 09/01/13
--- OUTSIDE RECORDS SUMMARY | 2024-03-21 12:08 | XMS_ITS | Encounter Summary ---
Author Organization [facility] Address [address] [place] [address] Care Team Providers Care Citrix Lead Name Role Phone Unavailable Primary Care Provider Unavailabl e Encounter Details Date Type Department Care Team (Late st Contact Info) Description 03/24/2005 Office Visit [facility] - Maple conversion [address] [place], [place] [address] Connor Kenny, EARLE-C [address] [facility], [address] [place] [address] Social History Tobacco Use Types [...] mg tablets. No refill (take according to [facility] protocol # 15, to be filled by act one staff only). Follow-up: Follow up with your doctor as needed. (Electronically signed by Bhavna Lora 03/24/2005 18:52) Addenda for CHRISTIANA EPSTEIN VisitID: [id number] Date: 03/24/2005 03/24/2005 16:11 ACT 1 REFERS [...] Patient verbalized understanding. Written instructions provided in Portuguese. The patient was discharged (ACT 1) and [...]
--- OUTSIDE RECORDS SUMMARY | 2024-03-21 12:08 | XMS_ITS | Encounter Summary ---
Author Organization [facility] Address [address] [place] [address] Care Team Providers Care Parking Cashier Name Role Phone Unavailable Primary Care Provider Unavailabl e Encounter Details Date Type Department Care Team (Late st Contact Info) Description 08/03/2000 Results Only [facility] - Maple conversion [address] [place] [address] Vladislav Lemon MD [address] [place] [address] Social History Tobacco Use Types [...] ? JESSICA EPSTEIN ? Accession #: ? [id number] ? : ? 1970 (Age: 30) ??F [...] ORDERABLES Final Resul t SASKIA SANCHEZ [address] [place] [address] documented in this encounter Visit Diagnoses Not on filedocumented in this encounter
--- OUTSIDE RECORDS SUMMARY | 2024-03-21 12:08 | XMS_ITS | Encounter Summary ---
Author Organization [facility] Address [address] [place] [address] Care Team Providers Care Reaming Machine Tender Name Role Phone Unavailable Primary Care Provider Unavailabl e Encounter Details Date Type Department Care Team (Late st Contact Info) Description 06/09/2000 Results Only [facility] - Maple conversion [address] [place] [address] [facility] [address] [place] [address] Social History Tobacco Use Types [...] ? JESSICA EPSTEIN ? Accession #: ? [id number] : ? 1970 (Age: 30) ??F ?Collect Date: ? 06/09/2000 Location: ? [facility] ? Receive Date: ? 06/10/2000 Provider: ?JULIA BRANCH TEXTILE SCREEN PRINTER Copy to: ? Specimen/Source: ?ThinPrep Pap Test, [...] SASKIA SANCHEZ 06/09/2000 06/10/2000 us Julia Branch TEXTILE SCREEN PRINTER PATHOLOGY ORDERABLES Final R esult SASKIA SANCHEZ [address] [place] [address] documented in this encounter Visit Diagnoses Not on filedocumented in this encounter
--- OUTSIDE RECORDS SUMMARY | 2024-03-21 12:08 | XMS_ITS | Encounter Summary ---
Author Organization [facility] Address [address] [place] [address] Care Team Providers Care Staff Pharmacist Hospital Name Role Phone Unavailable Primary Care Provider Unavailabl e Encounter Details Date Type Department Care Team (Latest Contact Info) Description 03/24/2005 16:11 EST Hospital Encounter [facility] Emergency Department - [facility] [address] [place] [address] Emergency, Default, MD Discharge Disposition: [...]
--- OUTSIDE RECORDS SUMMARY | 2024-03-21 12:08 | XMS_ITS | Encounter Summary ---
Author Organization [facility] Address [facility] [place] [address] Care Team Providers Care Waste Recycler Name Role Phone Criss Youssef MD Primary Care Provider [phone] Encounter Details Date Type Department Care Team (Late st Contact Info) Description 10/03/2013 11:00 AM EDT - 10/03/2013 12:00 PM EDT Surgery [place] [address] Criss Laguerre MD [facility] DR GASTROENTER[place] [address] EGD, UPPER GI ENDOSCOPY (WRVU 2.09) Social [...] you need to be checked. Thursday[facility]Thursday Clinic [phone] 8a-5p Same Day Endo [phone] 7a-8p Otherwise contact [phone] and ask to speak to the correctional medicine physician day habilitation supervisor Follow up care is a luong part [...] not get better as expected. [facility]Thursday Clinic [phone] 8a-5p Same Day Endo [phone] 7a-8p Otherwise contact [phone] and ask to speak to the correctional medicine physician day habilitation supervisor Follow-up care is a luong part of [...] (10/03/2013 11:09 AM EDT) Final Diagnosis ? [facility] ? Provider: ?? RCISS LAGUERRE ?Pt. Name: ?? JESSICA EPSTEIN ? [...] - Labeled/Fixativ e: Cecal polyp, formalin. ? [facility] ? Provider: ?? CRISS LAGUERRE ?Pt. Name: [...] Diagnosis: ? Same 10/07/2013 9:47 AM EDT [facility] GI Biopsy 10/03/2013 11:0 [...] MD PATHOLOGY/CYTOLOGY O SKYLA Performing Organization Address [facility] Co de Phone Number [place] [address] * Specimen to Pathology (surgical or derm) (10/03/2013 11:09 AM EDT) AP Specimen 10/03/2013 11:0 9 AM EDT 10/03/2013 11:09 AM EDT Narrative MARITA GUNTER - 10/03/2013 11:09 AM EDT Specimen requisition ordered. ??Separate Pathology report to follow Criss Laguerre MD PATHOLOGY/CYTOLOGY O SKYLA Performing Organization Address [facility] Co de Phone Number MARITA GUNTER * Specimen to Pathology (surgical or derm) (10/03/2013 11:09 AM EDT) AP Specimen 10/03/2013 11:0 9 AM EDT 10/03/2013 11:09 AM EDT Narrative MARITA GUNTER - 10/03/2013 11:09 AM EDT Specimen requisition ordered. ??Separate Pathology report to follow Criss Laguerre MD PATHOLOGY/CYTOLOGY O SKYLA Performing Organization Address [facility] Co de Phone Number MARITA GUNTER * Specimen to Pathology (surgical or derm) (10/03/2013 11:09 AM EDT) AP Specimen 10/03/2013 11:0 9 AM EDT 10/03/2013 11:09 AM EDT Narrative MARITA GUNTER - 10/03/2013 11:09 AM EDT Specimen requisition ordered. ??Separate Pathology report to follow Criss Laguerre MD PATHOLOGY/CYTOLOGY O SKYLA Performing Organization Address [facility] de Phone Number MARITA GUNTER * Specimen to Pathology (surgical or derm) (10/03/2013 11:09 AM EDT) AP Specimen 10/03/2013 11:0 9 AM EDT 10/03/2013 11:09 AM EDT Narrative MARITA GUNTER - 10/03/2013 11:09 AM EDT Specimen requisition ordered. ??Separate Pathology report to follow Criss Laguerre MD PATHOLOGY/CYTOLOGY O SKYLA Performing Organization Address [facility] de Phone Number MARITA GUNTER * Specimen to Pathology (surgical or derm) (10/03/2013 11:09 AM EDT) AP Specimen 10/03/2013 11:0 9 AM EDT 10/03/2013 11:09 AM EDT Narrative MARITA GUNTER - 10/03/2013 11:09 AM EDT Specimen requisition ordered. ??Separate Pathology report to follow Criss Laguerre MD PATHOLOGY/CYTOLOGY O SKYLA Performing Organization Address [facility] de Phone Number MARITA GUNTER * COLONOSCOPY (10/03/2013 10:09 AM EDT) COLONOSCOPY [facility] Endoscopy ___ Patient Name: Jessica Robe ? Procedure Date: 10/03/2013 10:09 AM ? Date of : 1970 ? Age: 43 ? Order #: [id number] ? ___ Procedure: ? Colonoscopy Indications: ? Change in bowel habits Providers: ? Criss Laguerre MD, Betzy Whitmore, ? RN, Unruly Leavitt, Senior Statistician Referring MD: ?Criss Youssef MD, Elbert Mcdaniel [...] (10/03/2013 10:08 AM EDT) UPPER GI ENDOSCOPY [facility] Endoscopy Patient Name: Jessica Epstein ? Procedure Date: 10/03/2013 10:08 AM ? Date of : 1970 ? Age: 43 ? Order #: [id number] ? Procedure: ? Upper GI endoscopy Indications: ? Dysphagia Providers: ? Criss Laguerre MD, Betzy Whitmore, ? RN, Unruly Leavitt, Senior Statistician Referring : ?Criss Youssef MD, Elbert Mcdaniel [...] RN) documented in this encounter Care Teams Waste Recycler Relationship Specialty Start Date End Date Criss Youssef MD [address] [place] [address] PCP - General 09/01/13 documented as of this encounter
--- OUTSIDE RECORDS SUMMARY | 2024-03-21 12:08 | XMS_ITS | Encounter Summary ---
Author Organization [facility] Address [address] [place] [address] Care Team Providers Care Terrazzo Polisher Name Role Phone Unavailable Primary Care Provider Unavailabl e Encounter Details Date Type Department Care Team (Late st Contact Info) Description 06/05/2003 Results Only [facility] - Maple conversion [address] [place] [address] Vladislav Lemon MD [address] [place] [address] Social History Tobacco Use Types [...] ? JESSICA EPSTEIN ? Accession #: ? [id number] ? : ? 1970 (Age: 33) ??F [...] x 0.5 x 0.3 cm corpus luteum. ??Blending Kettle Tender sections are submitted as follows: BLOCK VELAZQUEZ A1 ?Fallopian tube and adjacent paratubal cyst A2 ?Blending Kettle Tender hemorrhagic cyst with adjacent ovary A3 ?Additional bank representative section hemorrhagic [facility] End of Report SASKIA SANCHEZ 06/05/2003 06/06/2003 15: 32 EST us Vladislav Lemon MD PATHOLOGY ORDERABLES Final Resul t [facility] [address] [place] [address] documented in this encounter Visit Diagnoses Not on filedocumented in this encounter
--- OUTSIDE RECORDS SUMMARY | 2024-03-21 12:08 | XMS_ITS | Encounter Summary ---
Author Organization [facility] Address [facility] [place] [address] Care Team Providers Care Zinc Plating Machine Operator Name Role Phone Criss Youssef MD Primary Care Provider [phone] Encounter Details Date Type Department Care Team (Latest Contact Info) Description 10/03/2013 9:49 AM EDT - 10/03/2013 6:37 PM EDT Hospital Encounter [place] [address] Monty Bowman MD [facility] [place] [address] Criss Laguerre MD [facility] [place] [address] Discharge Disposition: Home Social History Tobacco Use [...] you need to be checked. Thursday-Thursday Clinic [phone] 8a-5p Same Day Endo [phone] 7a-8p Otherwise contact [phone] and ask to speak to the cream gatherer contact center team lead Follow up care is a luong part [...] not get better as expected. Thursday-Thursday Clinic [phone] 8a-5p Same Day Endo [phone] 7a-8p Otherwise contact [phone] and ask to speak to the cream gatherer contact center team lead Follow-up care is a luong part of [...] (10/03/2013 11:09 AM EDT) Final Diagnosis ? [facility] ? Provider: ?? CRISS LAGUERRE ?Pt. Name: [...] - Labeled/Fixativ e: Cecal polyp, formalin. ? [facility] ? Provider: ?? CRISS LAGUERRE ?Pt. Name: [...] Single, 0.3 cm. ? Tissue Description: Soft, duorn-pink tissue. ? Sections/Proces sing: (T1) ? E [...] Diagnosis: ? Same 10/07/2013 9:47 AM EDT [facility] GI Biopsy 10/03/2013 11:0 9 AM [...] MD PATHOLOGY/CYTOLOGY O SKYLA Performing Organization Address [facility]/ZIP Co de Phone Number [facility] [address] * Specimen to Pathology (surgical or derm) (10/03/2013 11:09 AM EDT) AP Specimen 10/03/2013 11:0 9 AM EDT 10/03/2013 11:09 AM EDT Narrative MARITA GUNTER - 10/03/2013 11:09 AM EDT Specimen requisition ordered. ??Separate Pathology report to follow Crsis Laguerre MD PATHOLOGY/CYTOLOGY O SKYLA [facility] * Specimen to Pathology (surgical or derm) [...] MD PATHOLOGY/CYTOLOGY O SKYLA Performing Organization Address [facility]/ZIP Co de Phone Number MARITA GUNTER * Specimen to Pathology (surgical or derm) (10/03/2013 11:09 AM EDT) AP Specimen 10/03/2013 11:0 9 AM EDT 10/03/2013 11:09 AM EDT Narrative MARITA GUNTER - 10/03/2013 11:09 AM EDT Specimen requisition ordered. ??Separate Pathology report to follow Criss Laguerre MD PATHOLOGY/CYTOLOGY O SKYLA Performing Organization Address [facility] Co de Phone Number MARITA GUNTER * Specimen to Pathology (surgical or derm) (10/03/2013 11:09 AM EDT) AP Specimen 10/03/2013 11:0 9 AM EDT 10/03/2013 11:09 AM EDT Narrative MARITA GUNTER - 10/03/2013 11:09 AM EDT Specimen requisition ordered. ??Separate Pathology report to follow Criss Laguerre MD PATHOLOGY/CYTOLOGY O SKYLA MARITA GUNTER * COLONOSCOPY (10/03/2013 10:09 AM EDT) COLONOSCOPY [facility] Endoscopy ___ Patient Name: Jessica Nagel ? Procedure Date: 10/03/2013 10:09 AM ? Date of : 1970 ? Age: 43 ? Order #: [id number] ? ___ Procedure: ? Colonoscopy Indications: ? Change in bowel habits Providers: ? Criss Laguerre MD, Betzy Whitmore, ? RN, Unruly Leavitt, Sports Athletic Trainer Referring : ?Criss Youssef MD, Elbert Mcdaniel [...] ENDOSCOPY (10/03/2013 10:08 AM EDT) Pathologist [facility] UPPER GI ENDOSCOPY [facility] Endoscopy Patient Name: Jessica Nagel ? Procedure Date: 10/03/2013 10:08 AM ? Date of : 1970 ? Age: 43 ? Order #: [id number] ? Procedure: ? Upper GI endoscopy Indications: ? Dysphagia Providers: ? Criss Laguerre MD, Betzy Whitmore, ? GARCIA, Unruly Leavitt, Sports Athletic Trainer Referring MD: ?Criss Youssef MD, Elbert Mcdaniel [...] RN) documented in this encounter Care Teams Zinc Plating Machine Operator Relationship Specialty Start Date End Date Criss Youssef MD [address] [place] [address] PCP - General 09/01/13 documented as of this encounter
--- OUTSIDE RECORDS SUMMARY | 2024-03-21 12:08 | XMS_ITS | Encounter Summary ---
Author Organization [facility] [place] [address] Care Team Providers Care Prepared Foods Service Team Member Name Role Phone Criss Jernigan MD Primary Care Provider [phone] Reason for Visit * Reason Comments Dysphagia Encounter Details Date Type Department Care Team (Late st Contact Info) Description 10/05/2013 9:15 AM EDT [place] [address] Raisa Vargas APRN [facility] [place] [address] Chronic rhinitis (Primary Dx) Discharge Disposition: Home [...] Visit: 10/05/2013 Location of Visit: Otolaryngology Clinic, [facility] Patient: Christiana Nagel ([id number] ; 1970 Primary Care Provider: CRISS JERNIGAN [...] ENDOSCOPY performed by Criss Laguerre MD at [facility] ENDOSCOPY ??? Colonoscopy, diagnostic 10/03/2013 COLONOSCOPY, DIAGNOSTIC performed by Criss Laguerre MD at [facility] END[facility]COPY Medications: Current Outpatient Prescriptions on File Prior to Visit Medication Sig Dispense Refill ??? acetaminophen (TYLENOL) 325 mg tablet Take 650 mg by mouth every 4 hours as needed. Allergies: Demerol; Codeine phosphate; Meperidine hcl; and Penicillins Social History: Christiana Nagel lives in [facility] [address] . She does smoke 1 pack/day x [...] to the clinic as needed. Raisa RAY [place], [place] [address] Office documented in this encounter Plan of Treatment Not on file documented as of this encounter Visit Diagnoses Diagnosis Chronic rhinitis- Primary documented in this encounter Care Teams Prepared Foods Service Team Member Relationship Specialty Start Date End Date Criss Jernigan MD [address] [place] [address] [address] [place] [address] PCP - General 09/01/13 documented as of this encounter
--- OUTSIDE RECORDS SUMMARY | 2024-03-21 12:08 | XMS_ITS | Encounter Summary ---
Author Organization [facility] Address [address] [place] [address] Care Team Providers Care Car Repairer Pullman Name Role Phone Unavailable Primary Care Provider Unavailabl e Encounter Details Date Type Department Care Team (Late st Contact Info) Description 05/31/1999 Results Only [facility] - Maple conversion [address] [place] [address] [facility] [address] [place] [address] Social History Tobacco Use Types [...] ? JESSICA EPSTEIN ? Accession #: ? [id number] : ? 1970 (Age: 29) ??F ?Collect Date: ? 05/31/1999 Location: ?Receive Date: ? 05/31/1999 Provider: ?JULIA ROSEMARY CHIEF PILOT Copy to: ?JULIA ROSEMARY CHIEF PILOT ? Specimen/Source: ?Radiology Orderly ThinPrep Last Menstrual Period: ? GYNECOLOGIC ??CYTOPATHOLOGY ??REPORT Name: JESSICA EPSTEIN Kevin ? FA[facility] : 1970 ?? 29Y F ?Client ID: [id number] SS#: ? Clinician: ROSEMARY CHIEF PILOT, JULIA ?? Location: [facility] ??Copy to: ?? Specimen: ?Radiology Orderly ThinPrep ? Source: Cervix/Endocervix ?Collected: 05/29/99 ? [...] Puentes, CT(ASCP) ? Report Date: ?? 05/31/1999 [facility] Archived Tests - Final Diagnosis Text Field: Clinical History : ; benign cellular changes. Abn. pap 1992, cryo done. NL since. ? Document reviewed and electronically signed by: ? Conversion ? Report Date: ??05/31/1999 00:00 End of Report [facility] 05/31/1999 10:4 1 EST 05/31/1999 10:42 EST us Julia Branch CHIEF PILOT PATHOLOGY ORDERABLES Final R esult Performing Organization Address City/State/[facility] Co de Phone Number [facility] [address] [place] [address] documented in this encounter Visit Diagnoses Not on filedocumented in this encounter
--- OUTSIDE RECORDS SUMMARY | 2024-03-21 12:08 | XMS_ITS | Encounter Summary ---
Author Organization [facility] Address [address] [place] [address] Care Team Providers Care Laborer Gold Leaf Name Role Phone Unavailable Primary Care Provider Unavailabl e Encounter Details Date Type Department Care Team (Late st Contact Info) Description 07/15/2002 Results Only [facility] - Maple conversion [address] [place] [address] [facility] [address] [place] [address] Social History Tobacco Use Types [...] reading/interpreti ng unformatted reports. Name: ? JESSICA EPTSEIN ? Accession #: ? [id number] : ? 1970 (Age: 32) ??F ?Collect Date: ? 07/15/2002 Location: ? [facility] ? Receive Date: ? 07/18/2002 Provider: ?JULIA BRANCH [facility] Copy to: ? Specimen/Source: ?ThinPrep Pap Test, [...] SASKIA SANCHEZ 07/15/2002 07/18/2002 us Julia Branch KAIAKO [facility]OHAN[facility] RE[facility] PATHOLOGY ORDERABLES Final R esult SASKIA SANCHEZ [address] [place] [address] documented in this encounter Visit Diagnoses Not on filedocumented in this encounter
--- OUTSIDE RECORDS SUMMARY | 2024-03-21 12:08 | XMS_ITS | Encounter Summary ---
Author Organization [facility] Address [facility] [place] [address] Care Team Providers Care Farm Tractor Operator Name Role Phone Long Youssef MD Primary Care Provider [phone] Encounter Details Date Type Department Care Team (Latest Contact Info) Description 10/05/2013 10:12 AM EDT - 10/05/2013 11:59 PM EDT Hospital Encounter [facility] [place] [address] CLINIC, Monty Wade MD [facility] [place] [address] Abdominal pain, periumbilical Discharge Disposition: Home Social [...] mLs documented in this encounter Care Teams Farm Tractor Operator Relationship Specialty Start Date End Date Long Youssef MD [address] [place] [address] PCP - General 09/01/13 documented as of this encounter
--- OUTSIDE RECORDS SUMMARY | 2024-03-21 12:08 | XMS_ITS | Encounter Summary ---
Author Organization [facility] Address [address] [place] [address] Care Team Providers Care Upholstery Technician Name Role Phone ElizabethDeborant Darrell Primary Care Provider [phone] Encounter Details Date Type Department Care Team (Late st Contact Info) Description 04/19/2020 Lab Requisition [facility] Pathology & Laboratory Medicine - [facility] [address] [place] [address] Torrie Olson, DO [address] [place], [place] [id number] Encounter for other general examination Social History [...] mucosa with mild reactive changes. 04/23/2020 9:47 [facility] Attestation By the signature below, the attending physician certifies that they have 1) personally conducted a gross and/or microscopic examination of the described specimen(s), and/or personally interpreted the results of laboratory testing of the described specimen(s), and 2) personally rendered or confirmed the above diagnosis. 04/23/2020 9:47 [facility] at 0947 Clinical History Gastritis and hiatal hernia; normal colon 04/23/2020 9:47 [facility] Gross Description A. Received in formalin labelled with proper patient identification (initials N, R) and duodenal bulb is a duron-pink tissue measuring 0.4 x 0.2 x 0.2 cm. Submitted intact in A1. B. Received in formalin labelled with proper patient identification (initials N, R) and antrum is a 0.2 x 0.2 x 0.1 cm druon-pink tissue. Submitted intact in B1. C. Received [...] E1. EARLE MENDOZA(ASCP) 04/19/2020 18:55 04/23/2020 9:47 [facility] Resident/Wade w: Pako Mallory MD 04/23/2020 9:47 [facility] Performing Lab [facility] 9:47 [facility] Scanned Images 04/23/2020 9:47 EST [facility] Tissue ENTIRE ESOPHAGUS / Unknown [...] Olson DO PATHOLOGY ORDERABLES Final Re sult [facility] [address] [place] [address] documented in this encounter Visit Diagnoses Diagnosis Encounter for other general examination documented in this encounter Care Teams Upholstery Technician Relationship Specialty Start Date End Date oTan Johnson [address] [place] [id number] PCP - General Family Medicine - Hospital Medicine 04/19/20 documented as of this encounter
--- NOTE | 2024-03-21 14:10 | DI.RAD_ITS ---
Exam(s) XR LUMBAR SPINE COMPLETE EXAM: XR LUMBAR SPINE COMPLETE CLINICAL HISTORY: M25.552 Worsening pain in the inguinal area and post. hip.. TECHNIQUE: 2D digital imaging was performed. Five views. COMPARISON: No exams were available for comparison FINDINGS: BONES: No fracture or destructive lesion. Vertebral body heights are maintained. Small endplate os teophytes. Mild facet hypertrophy identified . DISKS: Intervertebral disc spaces are maintained. ALIGNMENT: Lumbar spinal alignment is within normal limits. SOFT TISSUE: Normal. IMPRESSION: Mild degenerative changes of the lumbar spine. DATA REPOSITORY: RADIATION DOSE DELIVERED:
--- NOTE | 2024-03-21 14:10 | DI.RAD_ITS ---
Exam(s) XR HIP LT COMPLETE AP PELVIS EXAM: XR HIP LT COMPLETE AP PELVIS CLINICAL HISTORY: M25.552 Worsening left inguinal and post. hip pain. TECHNIQUE: 2D digital imaging was performed. Two views. COMPARISON: CT CT RENAL COLIC WO from 03/17/2024 FINDINGS: BONES: No acute fracture is present. No bony destructive lesion is seen. JOINTS: No dislocation present. The SI joints and pubic symphysis are intact. No significant degenera tive changes. SOFT TISSUE: Normal. IMPRESSION: Unremarkable radiographs of the left hip. DATA REPOSITORY: RADIATION DOSE DELIVERED:
== END 2024-03-21 12:26 ==
LOC: DI 12:06
PROVIDERS: PCP Nurse Practitioner Family; Visit Provider Nurse Practitioner Family
DX: M51.362 Other intervertebral disc degeneration, lumbar region with discogenic back pain and lower extremity pain (principal)
CPT/HCPCS: 72110; 73502

== ENCOUNTER 2025-01-28 16:19 | Emergency (ER) | payer SELFPAY ==
[2025-01-28 16:34] VITALS: BP 122/73; PULSE 70; RESP 20; TEMP 36.7; O2SAT 97
[2025-01-28 16:38] VITALS: BP 122/73; PULSE 70; RESP 20; TEMP 36.7; O2SAT 97
--- NOTE | 2025-01-28 17:07 | W.ED.GENAD ---
Discharge Plan Disposition Patient Disposition: Home Discharge Details Clinical Impression: Dental infection Primary Care Provider: Toan Johnson ED Provider: Annabel Mcintosh Home Meds and New Rx's Prescriptions: New clindamycin HCl [Cleocin HCl] 150 mg capsule 450 mg PO TID 8 Days Qty: 72 0RF No Action ibuprofen 200 mg capsule 200 mg PO Q6H PRN Discharge Instructions Instructions: Tooth Abscess ED Additional Instructions: I encourage you to contact your dentist as soon as you can obtain dental insurance to arrange for definitive management/treatment of your dental infection. Please use the clindamycin for the full course as prescribed. I recommend that you also continue doing the salt water gargles, gentle toothbrushing, and warm/ice packs on your face for comfort. You may continue to use Tylenol and ibuprofen 3 times a day for discomfort. Return to emergency if you develop new/worsening swelling, difficulty opening your mouth, voice change, swelling inside your mouth, facial droop, vision changes, severe headaches, fevers after 72 hours of treatment, or if you are very worried and need to be rechecked again immediately Discharge Data Discharge Date/Time-TO BE ENTERED AT DEPARTURE: 01/28/25 17:16 HPI General Date/Time Provider Initiated Documentation: 01/28/25 16:46. HPI Narrative: Christiana is a 54 year old female who presents to the emergency department today for evaluation of L lower jaw pain. Reports painful lump on the side of her left lower jaw since this morning, initially mild discomfort but has since turned into a uncomfortable lump. Denies associated fever/chills, general malaise, difficulty opening her mouth, difficulty swallowing, neck pain, headache, eye pain, vision changes, ear discomfort. She does not currently have dental insurance, has not seen a dentist in years. She does have a history of complicated dental abscess, so is very concerned about this turning into a similar deep space infection. No recent antibiotic use. Has been doing salt water rinses and brushing with baking soda and a gentle toothbrush. Also using Tylenol and ibuprofen as needed. Has medical history significant for alcohol use disorder, currently in remission x 20 years, denies liver dysfunction history. Former smoker. Related Data Home Medications ?Medication ?Instructions ?Recorded ?Confirmed ibuprofen 200 mg capsule 200 mg PO Q6H PRN 04/02/20 01/28/25 clindamycin HCl 150 mg capsule 450 mg (3 x 150 mg) PO TID 8 days 01/28/25 (Cleocin HCl) #72 caps Previous Rx's ?Medication ?Instructions ?Recorded clindamycin HCl 150 mg capsule 450 mg (3 x 150 mg) PO TID 8 days 01/28/25 (Cleocin HCl) #72 caps Allergies Allergy/AdvReac Type Severity Reaction Status Date / Time Penicillins Allergy Intermediate facial Verified 01/28/25 16:34 swelling tramadol AdvReac Intermediate jessica Verified 01/28/25 16:34 codeine AdvReac Mild Skin Rash Verified 01/28/25 16:34 ketorolac tromethamine (From AdvReac Mild Skin Rash Verified 01/28/25 16:34 Toradol) meperidine AdvReac Mild skin crawls Verified 01/28/25 16:34 General Stated Complaint: DentalOral RALPH: 3 Exam Narrative Exam Narrative: General Appearance: Normal. Patient is alert and oriented, no acute distress Vital signs: Within normal limits. HEENT: Soft swelling approximately 2 cm diameter noted to left lower jaw. Tender dental abscess noted at tooth #19. No active drainage or fistula tract noted. No swelling on the tongue consistent with Ricky's angina. No trismus. Clear voice. Cranial nerves II through XII intact as tested. Neck : full painless range of motion of neck. No cervical or submandibular lymphadenopathy Skin: Warm and dry, no rash. Psychiatric: Normal. Course Vital Signs Vital signs: Vital Signs Temperature 36.7 C 01/28/25 16:34 Pulse 70 01/28/25 16:34 Respiratory Rate 20 01/28/25 16:34 Blood Pressure 122/73 01/28/25 16:34 Pulse Oximetry 97 01/28/25 16:34 Temperature 36.7 C 01/28/25 16:38 Temperature Source Oral 01/28/25 16:38 Pulse 70 01/28/25 16:38 Respiratory Rate 20 01/28/25 16:38 Blood Pressure 122/73 01/28/25 16:38 Blood Pressure Position Supine 01/28/25 16:38 Pulse Oximetry 97 01/28/25 16:38 Oxygen Delivery Method Room Air 01/28/25 16:38 Oxygen Flow Rate 0 01/28/25 16:34 Pain Level 7 01/28/25 16:55 Medical Decision Making Initial Assessment: 54-year-old female with dental issues, painful lump on face since this morning. No fever or chills. Blurry vision noted. Dental decay observed. History and presentation consistent with dental abscess. No red flags concerning for cranial nerve impingement, deep space infection, or other serious extension of infection requiring emergent diagnostic imaging or blood work at this time. Patient does not meet sepsis criteria. ED Course: - Physical examination performed - Prescription for clindamycin sent to pharmacy, good Rx coupon provided Final Assessment: Confirmed dental abscess. Prescription for clindamycin sent to pharmacy. Recommended alternating Tylenol and ibuprofen for pain, Anbesol or Orajel for relief, gentle tooth brushing, salt water rinses, and alternating heat and ice application. Clinical Impression: - Dental abscess Disposition: - Follow-Up: Strongly encouraged follow-up with dentist for definitive management. List of local dentist provided by GARCIA Raymond. Reviewed discharge instructions with patient, including symptomatic management, use of antibiotics, and red flags indicate need for return to emergency care. Patient voices agreement with plan of care Patient Education: Antibiotics as prescribed. Tylenol and ibuprofen alternately for pain. Anbesol or Orajel for relief. Gentle tooth brushing, salt water rinses. Alternating heat and ice application. Seek immediate medical attention if symptoms worsen or new symptoms develop. Patient consented to the use of RUBIA PFSH All Active Problems (Updated 01/28/25 @ 17:03 by Annabel Bateman) Dental infection (Acute) Left hip pain (Acute) Erosive gastritis (Acute) Hiatal hernia with GERD (Acute) Colon cancer screening (Acute) Diabetes mellitus screening (Acute) Screening cholesterol level (Acute) Hypotension (Acute) Renal calculi (Chronic) Multiple renal calculi (Acute) Hematuria (Acute) Smoker unmotivated to quit (Acute) Abnormal CT of the abdomen (Acute) Adenomatous colon polyp (Acute) [place] [facility] [place]i (Acute) Medical History History of esophageal reflux Esophagitis Surgical History History of colonoscopy (~04/19/20) Stoiber, Normal History of esophagogastroduodenoscopy (EGD) (~04/19/20) Tonsillectomy (~1999) Repair, ACL (~1990) Oophrectomy, Left Vaginal hysterectomy removed right ovary Colonoscopy - [facility] 10/03/13; [facility] [place] Family History Mother Breast cancer at 70 after recurrence Diabetes Heart disease Brother Thyroid disorder Social History Smoking/Tobacco Use Status: Current every day Tobacco Type: cigarettes Smoking risk assessment performed?: Yes Alcohol Intake: former Drug use: Daily Substance use type: marijuana Details: Last used @ 0100 per pt. -BR Housing: house Do you feel safe at home: Yes Do you feel safe in your relationship?: Yes
== END 2025-01-28 17:16 | disposition home or self-care (01) ==
LOC: ER 17:42
PROVIDERS: Emergency Provider Nurse Practitioner Family; PCP Nurse Practitioner Family
DX: R68.84 Jaw pain (principal); K04.7 Periapical abscess without sinus
CPT/HCPCS: 99283